=== PATIENT | female | born 1960 | race Caucasian/White ===

== ENCOUNTER → 2017-11-18 | Outpatient (CLI) | payer OTHER ==
[~2017-11-18] MED LIST: ALBU90OI61 INH; ALEN70 PO; ATOR20 PO; CIPRO500 MG PO; CLOB.05TC TOP; Citalopram HBr10 MG PO; Culturelle1 CAP PO; ESCI20 PO; FEXO180; Glimepiride1 MG PO; INSLI100I; INSULANI; INSULANPEN SC; LOSA25 PO; LOSA50 PO; METF500; METO10 PO; METO50 PO; Novolog Fl100 UNIT/1 SC; OMEP20ER; OMEP20ER PO; OMEP40CA12 PO; OXYACE5T PO; PARO12.5; PIOG15; PRAMIPEXOLE DIHY1 MG PO; PROM25 PO; PROM25S PR; Prilosec Otc20 MG PO; SACC250C PO; TOUJEO SOL300 UNIT/1 SC; TRAN2; VENL37.5ER PO
== END | disposition home or self-care (01) ==
LOC: LAB EV 15:45 → LAB SHORT 15:45
DX: J02.9 Acute pharyngitis, unspecified (principal)
CPT/HCPCS: 87070; 87147

== ENCOUNTER → 2018-02-26 | Outpatient (CLI) | payer OTHER ==
[2018-02-27 11:37] LABS: Adenovirus F 40/41 Not Detected (NOT DETECT); Astrovirus Not Detected (NOT DETECT); Campylobacter Sp Not Detected (NOT DETECT); Cryptosporidium Not Detected (NOT DETECT); Cyclospora Cayetanensis Not Detected (NOT DETECT); E. Coli O157 Not Detected (NOT DETECT); Entamoeba Histolytica Not Detected (NOT DETECT); Enteroaggregative E. coli-EAEC Not Detected (NOT DETECT); Enteropathogenic E. coli-EPEC Not Detected (NOT DETECT); Enterotoxigenic E. coli-ETEC Not Detected (NOT DETECT); Giardia Lamblia Not Detected (NOT DETECT); Norovirus GI/GII Not Detected (NOT DETECT); Plesiomonas Shigelloides Not Detected (NOT DETECT); Rotavirus A Not Detected (NOT DETECT); Salmonella Sp Not Detected (NOT DETECT); Sapovirus Not Detected (NOT DETECT); Shiga Toxin-prod E. coli-STEC Not Detected (NOT DETECT); Shigella/Enteroin E. coli-EIEC Not Detected (NOT DETECT); Vibrio Cholerae Not Detected (NOT DETECT); Vibrio Sp Not Detected (NOT DETECT); Yersinia Enterocolitica Not Detected (NOT DETECT)
== END | disposition home or self-care (01) ==
LOC: LAB EV 09:50
PROVIDERS: Nurse Practitioner Family
DX: E11.43 Type 2 diabetes mellitus with diabetic autonomic (poly)neuropathy (principal); R19.7 Diarrhea, unspecified
CPT/HCPCS: 87507

== ENCOUNTER → 2018-03-06 | Outpatient (CLI) | payer OTHER ==
[2018-03-06 11:08] LABS: BASOPHILS ABSOLUTE AUTO 0.06 K/mm3 (0.00-0.23); BASOPHILS PERCENT AUTO 0 % (0-2); EOSINOPHILS ABSOLUTE AUTO 0.45 K/mm3 (0.00-0.68); EOSINOPHILS PERCENT AUTO 3 % (0-6); Hematocrit 36.5 % (33.0-51.0); Hemoglobin 11.8 g/dL (11.5-16.0); IMMATURE GRAN ABSOLUTE AUTO 0.09 K/mm3 (0.00-0.10); IMMATURE GRAN PERCENT AUTO 1 % (0-1); LYMPHOCYTES ABSOLUTE AUTO 2.72 K/mm3 (0.84-5.20); LYMPHOCYTES PERCENT AUTO 18 % (21-46); MONOCYTES ABSOLUTE AUTO 0.95 K/mm3 (0.16-1.47); MONOCYTES PERCENT AUTO 6 % (4-13); Mean Corpuscular HGB 26.9 pg (26.0-34.0); Mean Corpuscular HGB Conc 32.3 g/dL (31.5-36.5); Mean Corpuscular Volume 83 fL (80-100); NEUTROPHILS ABSOLUTE AUTO 10.69 K/mm3 (1.96-9.15); NEUTROPHILS PERCENT AUTO 71 % (41-73); Platelet Count 441 K/mm3 (150-400); RDW Coefficient Variation 14.7 % (11.7-14.2); RDW Standard Deviation 44.5 fL (35.1-46.3); Red Blood Cell Count 4.38 M/mm3 (3.80-5.20); White Blood Cell Count 14.96 K/mm3 (4.00-11.30)
[2018-03-06 11:35] LABS: Albumin, Blood 3.9 g/dL (3.4-5.0); Albumin/Globulin Ratio 0.9 (0.8-1.8); Bilirubin, Total 0.4 mg/dL (0.1-1.0); Bun/Creatinine Ratio 24.3 (12.0-20.0); Calcium, Blood 9.6 mg/dL (8.5-10.1); Creatinine, Blood 1.36 mg/dL (0.40-1.00); Globulin, Blood 4.4 g/dL (2.2-4.0); Potassium, Blood 4.4 mmol/L (3.5-5.5); Total Protein, Blood 8.3 g/dL (6.4-8.2)
== END | disposition home or self-care (01) ==
LOC: LAB SHORT 11:04 → LAB EV 11:04
PROVIDERS: Physician Assistant
DX: R10.11 Right upper quadrant pain (principal)
CPT/HCPCS: 80053; 83690; 85025

== ENCOUNTER → 2018-06-21 | Outpatient (CLI) | payer OTHER ==
[2018-06-21 14:20] LABS: BASOPHILS ABSOLUTE AUTO 0.06 K/mm3 (0.00-0.23); BASOPHILS PERCENT AUTO 1 % (0-2); EOSINOPHILS ABSOLUTE AUTO 0.49 K/mm3 (0.00-0.68); EOSINOPHILS PERCENT AUTO 4 % (0-6); Hematocrit 34.2 % (33.0-51.0); Hemoglobin 11.1 g/dL (11.5-16.0); IMMATURE GRAN ABSOLUTE AUTO 0.04 K/mm3 (0.00-0.10); IMMATURE GRAN PERCENT AUTO 0 % (0-1); LYMPHOCYTES ABSOLUTE AUTO 3.48 K/mm3 (0.84-5.20); LYMPHOCYTES PERCENT AUTO 30 % (21-46); MONOCYTES ABSOLUTE AUTO 0.75 K/mm3 (0.16-1.47); MONOCYTES PERCENT AUTO 6 % (4-13); Mean Corpuscular HGB 27.4 pg (26.0-34.0); Mean Corpuscular HGB Conc 32.5 g/dL (31.5-36.5); Mean Corpuscular Volume 84 fL (80-100); Mean Platelet Volume 9.3 fL (9.1-12.4); NEUTROPHILS ABSOLUTE AUTO 6.81 K/mm3 (1.96-9.15); NEUTROPHILS PERCENT AUTO 59 % (41-73); Platelet Count 353 K/mm3 (150-400); RDW Coefficient Variation 15.1 % (11.7-14.2); RDW Standard Deviation 46.2 fL (35.1-46.3); Red Blood Cell Count 4.05 M/mm3 (3.80-5.20); White Blood Cell Count 11.63 K/mm3 (4.00-11.30)
[2018-06-21 14:42] LABS: Anion Gap 9 mmol/L (6-16); Blood Urea Nitrogen 30 mg/dL (8-24); Bun/Creatinine Ratio 23.6 (12.0-20.0); CO2, Blood 29 mmol/L (21-32); Calcium, Blood 9.4 mg/dL (8.5-10.1); Chloride, Blood 98 mmol/L (98-108); Creatinine, Blood 1.27 mg/dL (0.40-1.00); Glomerular Filtration Rate 43 (60-); Glucose, Blood 120 mg/dL (70-99); Potassium, Blood 4.4 mmol/L (3.5-5.5); Sodium, Blood 136 mmol/L (136-145)
[2018-06-21 14:44] LABS: Troponin I <0.015 ng/mL (0.000-0.040)
== END | disposition home or self-care (01) ==
LOC: LAB SHORT 14:14 → LAB EV 14:14
PROVIDERS: Family Medicine
DX: R07.81 Pleurodynia (principal)
CPT/HCPCS: 80048; 83880; 84484; 85025

== ENCOUNTER → 2018-08-06 | Outpatient (CLI) | payer OTHER | END | disposition home or self-care (01) | LOC: LAB 18:51 → LAB SHORT 18:51 | DX: R31.9 Hematuria, unspecified (principal) | CPT/HCPCS: 87077; 87086; 87147; 87186 ==

== ENCOUNTER → 2018-10-16 | Outpatient (CLI) | payer OTHER ==
[2018-10-16 17:55] LABS: BASOPHILS ABSOLUTE AUTO 0.07 K/mm3 (0.00-0.23); BASOPHILS PERCENT AUTO 1 % (0-2); EOSINOPHILS ABSOLUTE AUTO 0.57 K/mm3 (0.00-0.68); EOSINOPHILS PERCENT AUTO 5 % (0-6); Hematocrit 36.4 % (33.0-51.0); Hemoglobin 11.8 g/dL (11.5-16.0); IMMATURE GRAN ABSOLUTE AUTO 0.05 K/mm3 (0.00-0.10); IMMATURE GRAN PERCENT AUTO 0 % (0-1); LYMPHOCYTES PERCENT AUTO 26 % (21-46); MONOCYTES ABSOLUTE AUTO 1.32 K/mm3 (0.16-1.47); MONOCYTES PERCENT AUTO 11 % (4-13); Mean Corpuscular HGB 26.8 pg (26.0-34.0); Mean Corpuscular HGB Conc 32.4 g/dL (31.5-36.5); Mean Corpuscular Volume 83 fL (80-100); Mean Platelet Volume 10.1 fL (9.1-12.4); NEUTROPHILS ABSOLUTE AUTO 6.91 K/mm3 (1.96-9.15); NEUTROPHILS PERCENT AUTO 58 % (41-73); Platelet Count 341 K/mm3 (150-400); RDW Coefficient Variation 15.6 % (11.7-14.2); Red Blood Cell Count 4.41 M/mm3 (3.80-5.20); White Blood Cell Count 12.02 K/mm3 (4.00-11.30)
[2018-10-16 18:14] LABS: Alanine Aminotransfer (ALT/SGP 17 U/L (12-78); Albumin, Blood 3.5 g/dL (3.4-5.0); Albumin/Globulin Ratio 0.9 (0.8-1.8); Alk Phos 123 U/L (40-126); Anion Gap 6 mmol/L (6-16); Aspartate Aminotrans (AST/SGOT 11 U/L (12-37); Bilirubin, Total 0.5 mg/dL (0.1-1.0); Blood Urea Nitrogen 27 mg/dL (8-24); Bun/Creatinine Ratio 21.6 (12.0-20.0); CO2, Blood 30 mmol/L (21-32); Chloride, Blood 100 mmol/L (98-108); Creatinine, Blood 1.25 mg/dL (0.40-1.00); Glomerular Filtration Rate 44 (60-); Glucose, Blood 132 mg/dL (70-99); Potassium, Blood 3.8 mmol/L (3.5-5.5); Sodium, Blood 136 mmol/L (136-145); Total Protein, Blood 7.5 g/dL (6.4-8.2)
[2018-10-16 18:23] LABS: Troponin I <0.017 ng/mL (0.000-0.040)
== END | disposition home or self-care (01) ==
LOC: LAB SHORT 17:49 → LAB EV 17:49
PROVIDERS: Physician Assistant Medical
DX: R07.9 Chest pain, unspecified (principal)
CPT/HCPCS: 80053; 84484; 85025; 85379

== ENCOUNTER → 2018-11-30 | Outpatient (CLI) | payer OTHER ==
[~2018-11-30] MED LIST changes: +ASPI81CH PO; +Coreg25 MG; +HYDCHL50 PO; +METF500 PO; +NOVOLOG FL100 UNIT/1; -Novolog Fl100 UNIT/1 SC; +OXYC5
[2018-11-30 15:56] LABS: BASOPHILS ABSOLUTE AUTO 0.07 K/mm3 (0.00-0.23); BASOPHILS PERCENT AUTO 1 % (0-2); EOSINOPHILS ABSOLUTE AUTO 0.52 K/mm3 (0.00-0.68); EOSINOPHILS PERCENT AUTO 6 % (0-6); Hematocrit 36.2 % (33.0-51.0); Hemoglobin 11.8 g/dL (11.5-16.0); IMMATURE GRAN ABSOLUTE AUTO 0.04 K/mm3 (0.00-0.10); IMMATURE GRAN PERCENT AUTO 0 % (0-1); LYMPHOCYTES ABSOLUTE AUTO 1.98 K/mm3 (0.84-5.20); LYMPHOCYTES PERCENT AUTO 22 % (21-46); MONOCYTES ABSOLUTE AUTO 0.77 K/mm3 (0.16-1.47); MONOCYTES PERCENT AUTO 9 % (4-13); Mean Corpuscular HGB Conc 32.6 g/dL (31.5-36.5); Mean Corpuscular Volume 83 fL (80-100); Mean Platelet Volume 9.9 fL (9.1-12.4); NEUTROPHILS PERCENT AUTO 63 % (41-73); Platelet Count 311 K/mm3 (150-400); RDW Coefficient Variation 16.7 % (11.7-14.2); RDW Standard Deviation 50.1 fL (35.1-46.3); Red Blood Cell Count 4.37 M/mm3 (3.80-5.20); White Blood Cell Count 9.08 K/mm3 (4.00-11.30)
== END | disposition home or self-care (01) ==
LOC: LAB SHORT 15:51 → LAB EV 15:51
PROVIDERS: Physician Assistant Surgical
DX: M25.571 Pain in right ankle and joints of right foot (principal)
CPT/HCPCS: 84550; 85025

== ENCOUNTER 2019-01-06 17:56 | Inpatient (IN) | payer OTHER ==
[~2019-01-06] VITALS: Ht 157.5 cm; Wt 74.4 kg
[~2019-01-06 17:56] MED LIST changes: -ASPI81CH PO; -ATOR20 PO; +ATOR40TA PO; +Aspirin EC81 MG PO; -Coreg25 MG; +Coreg25 MG PO; +HYDCHL25 PO; -HYDCHL50 PO
[2019-01-06 18:44] LABS: BASOPHILS ABSOLUTE AUTO 0.03 K/mm3 (0.00-0.23); BASOPHILS PERCENT AUTO 0 % (0-2); EOSINOPHILS ABSOLUTE AUTO 0.63 K/mm3 (0.00-0.68); EOSINOPHILS PERCENT AUTO 7 % (0-6); Hematocrit 27.5 % (33.0-51.0); Hemoglobin 8.8 g/dL (11.5-16.0); IMMATURE GRAN ABSOLUTE AUTO 0.03 K/mm3 (0.00-0.10); IMMATURE GRAN PERCENT AUTO 0 % (0-1); LYMPHOCYTES ABSOLUTE AUTO 2.12 K/mm3 (0.84-5.20); LYMPHOCYTES PERCENT AUTO 23 % (21-46); MONOCYTES ABSOLUTE AUTO 0.87 K/mm3 (0.16-1.47); MONOCYTES PERCENT AUTO 10 % (4-13); Mean Corpuscular HGB 26.9 pg (26.0-34.0); Mean Corpuscular Volume 84 fL (80-100); Mean Platelet Volume 9.6 fL (9.1-12.4); NEUTROPHILS ABSOLUTE AUTO 5.44 K/mm3 (1.96-9.15); NEUTROPHILS PERCENT AUTO 60 % (41-73); Platelet Count 333 K/mm3 (150-400); RDW Coefficient Variation 15.4 % (11.7-14.2); RDW Standard Deviation 47.1 fL (35.1-46.3); Red Blood Cell Count 3.27 M/mm3 (3.80-5.20); White Blood Cell Count 9.12 K/mm3 (4.00-11.30)
[2019-01-06 19:02] LABS: Albumin, Blood 3.3 g/dL (3.4-5.0); Albumin/Globulin Ratio 0.8 (0.8-1.8); Bilirubin, Total 0.3 mg/dL (0.1-1.0); Bun/Creatinine Ratio 20.6 (12.0-20.0); Calcium, Blood 8.6 mg/dL (8.5-10.1); Creatinine, Blood 2.62 mg/dL (0.40-1.00); Globulin, Blood 3.9 g/dL (2.2-4.0); Potassium, Blood 3.7 mmol/L (3.5-5.5); Total Protein, Blood 7.2 g/dL (6.4-8.2); Uric Acid, Blood 8.1 mg/dL (2.6-6.0)
[2019-01-06] MEDS ORDERED: Cyclobenzaprine5 MG PO (21:20)
[2019-01-06] MEDS ORDERED: JARDIANCE10 MG PO (21:21)
[2019-01-06] MEDS ORDERED: TRULICITY1.5 MG/0.5 SC (21:22)
[2019-01-06] MEDS ORDERED: PRAMIPEXOLE DIHY1 MG PO (21:25)
[2019-01-06] MEDS ORDERED: PANTOPRAZOLE SO40 M1 PO (21:26)
[2019-01-06] MEDS ORDERED: Plavix75 MG PO (21:28)
[2019-01-06] MEDS ORDERED: METO10 PO (22:31)
[2019-01-06] MEDS ORDERED: ONDA8 PO (22:32)
--- NOTE | 2019-01-06 23:00 | NUR ---
RECEIVED HAND OFF FROM ER NURSE USING SBAR. TRANSPORTED TO ROOM 209 VIA STRETCHER. TRANSFERED TO BED WITH FULL STAFF ASSISTANCE, TOLERATED WELL. AAO X3, RENDON, FOLLOWS ALL COMMANDS. ORIENTED TO ROOM, CALL SYSTEM, AND POC, VOICES UNDERSTANDING. RESPIRATIONS EVEN AND UNLABORED ON ROOM AIR. LUNG SOUNDS CLEAR BILATERALLY. ABDOMEN MILDLY DISTENDED. BOWEL SOUNDS HYPOACTIVE IN ALL QUADS. STATES LAST BM WAS YESTERDAY. LEFT AC 20G PIV IS PATENT, FLUSING WITH EASE. SCD PLACED TO LLE, TOELRATED WELL. GOOD PEDAL PULSES NOTED TO BLE. EDEMA, REDNESS, AND HEAT NOTED TO LEFT FOOT. SEVERAL SMALL ANRASIONS NOTED TO LEFT FOOT, PT STATES THAT SHE SCRATCHES HER FEET SOMETIMES. DENIES FURTHER NEED OR WANTS AT THIS TIME. ADMISSION ASSESSMENT IN PROGRESS. SAFETY MEASURES IN PLACE. WILL CONTINUE TO MONITOR.
[2019-01-07 04:54] LABS: BASOPHILS ABSOLUTE AUTO 0.03 K/mm3 (0.00-0.23); BASOPHILS PERCENT AUTO 0 % (0-2); EOSINOPHILS ABSOLUTE AUTO 0.57 K/mm3 (0.00-0.68); EOSINOPHILS PERCENT AUTO 8 % (0-6); Hematocrit 27.1 % (33.0-51.0); Hemoglobin 8.5 g/dL (11.5-16.0); IMMATURE GRAN ABSOLUTE AUTO 0.03 K/mm3 (0.00-0.10); IMMATURE GRAN PERCENT AUTO 0 % (0-1); LYMPHOCYTES ABSOLUTE AUTO 1.98 K/mm3 (0.84-5.20); LYMPHOCYTES PERCENT AUTO 27 % (21-46); MONOCYTES ABSOLUTE AUTO 0.83 K/mm3 (0.16-1.47); MONOCYTES PERCENT AUTO 11 % (4-13); Mean Corpuscular HGB 27.2 pg (26.0-34.0); Mean Corpuscular HGB Conc 31.4 g/dL (31.5-36.5); Mean Platelet Volume 9.7 fL (9.1-12.4); NEUTROPHILS ABSOLUTE AUTO 4.02 K/mm3 (1.96-9.15); NEUTROPHILS PERCENT AUTO 54 % (41-73); Platelet Count 315 K/mm3 (150-400); RDW Coefficient Variation 15.5 % (11.7-14.2); RDW Standard Deviation 49.4 fL (35.1-46.3); Red Blood Cell Count 3.12 M/mm3 (3.80-5.20); White Blood Cell Count 7.46 K/mm3 (4.00-11.30)
[2019-01-07 04:55] LABS: Mean Corpuscular Volume 87 fL (80-100)
[2019-01-07 05:10] LABS: Bun/Creatinine Ratio 22.2 (12.0-20.0); Calcium, Blood 7.7 mg/dL (8.5-10.1); Creatinine, Blood 2.21 mg/dL (0.40-1.00); Potassium, Blood 3.4 mmol/L (3.5-5.5)
--- NOTE | 2019-01-07 06:03 | NUR ---
SHIFT SUMMARY LYING IN SEMI FOWLERS WITH EYES OPEN. HAS RESTED WELL SINCE ADMISSION. RESPIRATIONS EVEN AND UNLABORED AT THIS TIME. DENIES PAIN, DISCOMFORT, OR FURTHER NEEDS AT THIS TIME. SAFETY MEASURES IN PLACE. WILL GIVE HAND OFF TO ONCOMING SHIFT USING SBAR.
[2019-01-07 15:10] LABS: IMMATURE RETIC FRACTION 6.2 % (2.3-16.0); RETIC HGB EQUIVALENT 28.2 pg (28.20-36.60); RETICULOCYTE ABSOLUTE 0.025 M/mm3 (0.0200-0.1100); RETICULOCYTE COUNT PERCENT 0.82 % (0.50-2.50)
[2019-01-07 15:31] LABS: Percent Saturation 13.5 % (15.0-50.0)
--- NOTE | 2019-01-07 16:58 | NUR ---
SHIFT SUMMARY PT A&OX4, VSS. RLE CAST NWB AND LLE FOOT FX'S NWB, CT TO BE ORDERED BY PODIATRY. PAIN MANAGED WITH 10 MG OXY Q6. BHARTI PO, DENIES N&V. BEDPAN FOR VOIDING. CBGS AC/HS. IVF NS KCL @ 75 MLS/HR INFUSING. WCTM & TX PER EMAR UNTIL REPORT GIVEN TO ONCOMING TAI PHAN.
--- NOTE | 2019-01-07 19:47 | NUR ---
pt to CT at this time.
--- NOTE | 2019-01-08 05:18 | NUR ---
SHIFT SUMMARY PT A&O X4 T/O SHIFT. NO ACUTE CHANGES. NWB BLE; BRISK CAP REFILL ALL EXT; PAIN MANAGED PER EMAR. CAST TO RLE. PT ASSISTED WITH BEDPAN AND BOOSTED IN BED PRN. PT REPOSITIONS INDEPENDENTLY. IV GTT PER EMAR. BLOOD SUGAR MANAGED PER EMAR. CALL LIGHT IN REACH; PT DEMONSTRATES USE. WCTM UNTIL REPORT TO DAY SHIFT RN.
[2019-01-08 05:31] LABS: Albumin, Blood 2.8 g/dL (3.4-5.0); Anion Gap 7 mmol/L (6-16); Blood Urea Nitrogen 32 mg/dL (8-24); Bun/Creatinine Ratio 21.9 (12.0-20.0); CO2, Blood 25 mmol/L (21-32); Calcium, Blood 8.2 mg/dL (8.5-10.1); Chloride, Blood 109 mmol/L (98-108); Creatinine, Blood 1.46 mg/dL (0.40-1.00); Glomerular Filtration Rate 39 (60-); Glucose, Blood 104 mg/dL (70-99); Phosphorus, Blood 2.6 mg/dL (2.5-4.9); Potassium, Blood 4.1 mmol/L (3.5-5.5); Sodium, Blood 141 mmol/L (136-145)
--- NOTE | 2019-01-08 16:42 | NUR ---
SHIFT SUMMARY PT A&OX4, VSS, RLE CAST, LLE SPLINTED, BOTH NWB, PT USES BOARD TRANSFER TO CHAIR/BED/WC; WC IN ROOM IS PT'S RENTAL; TRAPEZE ON BED TO ASSIST PT TO REPOSITION SELF. NO IV ACCESS NEEDED. PLAN IS DC TOMORROW, PT WORKING ON GETTING RAMP INTO HOME, TO SEE DR MEYER NEXT WEEK TO PLAN SURGERY ON LLE FOOT, PT/OT RECOMMENDS HOME WITH HH; DC PLANNING HAS MET WITH PT W/RESOURCES AND TO BEGIN DC. PAIN MANAGED WITH 10 MG PRN. BHARTI PO, DENIES N&V. WCTM & TX PER EMAR UNTIL REPORT GIVEN TO ONCCOURT LUJAN RN.
--- NOTE | 2019-01-08 22:55 | NUR ---
2039 PT LYING IN BED, REPORTS PAIN OF 2/10 IN L FOOT. WILL GIVE PAIN MEDICATION AND EVAL FOR EFFECT. REPORTS A LITTLE SOB, ON RA AT 93%. CAST ON R FOOT, SPLINT/WRAP ON L FOOT. CIRCULATION IN TOES IN BOTH FEET IS WNL. NO OTHER APPARENT SIGNS OF DISTRESS. CALL LIGHT IS IN REACH.
--- NOTE | 2019-01-08 23:17 | NUR ---
PT LYING IN BED, EYES CLOSED, APPEARS TO BE RESTING. BREATHING IS EVEN, UNLABORED. NO APPARENT SIGNS OF DISTRESS. CALL LIGHT IS IN REACH.
--- NOTE | 2019-01-09 01:30 | NUR ---
PT LYING IN BED, EYES CLOSED, APPEARS TO BE RESTING. BREATHING IS EVEN, UNLABORED. NO APPARENT SIGNS OF DISTRESS. CALL LIGHT IS IN REACH. BED ALARM IS ON.
--- NOTE | 2019-01-09 03:36 | NUR ---
PT REQUESTED AND RECIEVED PAIN MEDICATION, WILL EVAL FOR EFFECT. NO OTHER APPARENT SIGNS OF DISTRESS. CALL LIGHT IS IN REACH. BED ALARM IS ON.
--- NOTE | 2019-01-09 03:37 | NUR ---
PT IS AAO X 4, HOWEVER, AT TIMES SHE DOES NOT CALL FOR HELP AND ATTEMPTS TO TRANSFER HERSELF VIA SLIDER BOARD WITHOUT HELP AND IS NOT QUITE STEADY ENOUGH FOR THAT. WE PLACED THE BED ALARM ON AND A TAB ALARM WHEN SHE IS IN HER CHAIR OR WHEELCHAIR. BS AT WAS 105. PT GOT OXYCODONE FOR L FOOT PAIN X 2. THERE IS A SPLINT ON HER L FOOT AND A CAST ON HER R FOOT. CIRCULATION IN TOES IS WNL. SHE IN NWB BILAT. NEED SPECIMEN FOR OCCULT BLOOD STOOL.
[2019-01-09 04:14] LABS: BASOPHILS ABSOLUTE AUTO 0.04 K/mm3 (0.00-0.23); BASOPHILS PERCENT AUTO 1 % (0-2); EOSINOPHILS ABSOLUTE AUTO 0.54 K/mm3 (0.00-0.68); EOSINOPHILS PERCENT AUTO 6 % (0-6); Hematocrit 26.3 % (33.0-51.0); Hemoglobin 8.3 g/dL (11.5-16.0); IMMATURE GRAN ABSOLUTE AUTO 0.03 K/mm3 (0.00-0.10); IMMATURE GRAN PERCENT AUTO 0 % (0-1); LYMPHOCYTES ABSOLUTE AUTO 1.94 K/mm3 (0.84-5.20); LYMPHOCYTES PERCENT AUTO 22 % (21-46); MONOCYTES PERCENT AUTO 9 % (4-13); Mean Corpuscular HGB 26.3 pg (26.0-34.0); Mean Corpuscular HGB Conc 31.6 g/dL (31.5-36.5); Mean Platelet Volume 9.7 fL (9.1-12.4); NEUTROPHILS ABSOLUTE AUTO 5.41 K/mm3 (1.96-9.15); NEUTROPHILS PERCENT AUTO 62 % (41-73); Platelet Count 307 K/mm3 (150-400); RDW Coefficient Variation 15.5 % (11.7-14.2); RDW Standard Deviation 47.6 fL (35.1-46.3); Red Blood Cell Count 3.15 M/mm3 (3.80-5.20); White Blood Cell Count 8.76 K/mm3 (4.00-11.30)
[2019-01-09 04:15] LABS: Mean Corpuscular Volume 84 fL (80-100)
[2019-01-09 04:30] LABS: Albumin, Blood 2.8 g/dL (3.4-5.0); Anion Gap 6 mmol/L (6-16); Blood Urea Nitrogen 22 mg/dL (8-24); Bun/Creatinine Ratio 21.6 (12.0-20.0); CO2, Blood 26 mmol/L (21-32); Calcium, Blood 8.4 mg/dL (8.5-10.1); Chloride, Blood 106 mmol/L (98-108); Creatinine, Blood 1.02 mg/dL (0.40-1.00); Glomerular Filtration Rate 59 (60-); Glucose, Blood 80 mg/dL (70-99); Phosphorus, Blood 2.4 mg/dL (2.5-4.9); Potassium, Blood 4.3 mmol/L (3.5-5.5); Sodium, Blood 138 mmol/L (136-145)
--- NOTE | 2019-01-09 05:52 | NUR ---
ASSISTED ABATEMENT WORKER IN TRANSFERRING PT TO BSC VIA SLIDER BOARD FROM WHEELCHAIR AND BACK AGAIN. PT TOLERATED PROCEDURE WELL. NO APPARENT SIGNS OF DISTRESS. DECLINES NEED FOR ANYTHING ELSE AT THIS TIME. CALL LIGHT IS IN REACH. NO OTHER CHANGES THIS SHIFT.
[2019-01-09] MEDS ORDERED: ALLO100 PO (13:19)
[2019-01-09] MEDS ORDERED: B Complex #11 EACH PO (13:20)
[2019-01-09] MEDS ORDERED: ASCO500 PO (13:20)
[2019-01-09] MEDS ORDERED: Colace100 MG (13:21)
[2019-01-09] MEDS ORDERED: FERSU300 PO (13:21)
[2019-01-09] MEDS ORDERED: MIRALAX17 GM PO (13:22)
[2019-01-09] MEDS ORDERED: OXYC5 PO (13:22)
--- NOTE | 2019-01-09 13:28 | NUR ---
DISCHARGE DISCHARGE EQUIPMENT ARRANGED BY ROGER STARK. 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 PATIENT DISCHARGED TO HOME WITH FAMILY
== END 2019-01-09 13:40 | disposition home or self-care (01) | DRG 683 ==
LOC: ER 17:56 → SURS 21:20
PROVIDERS: Internal Medicine; Physician Assistant; ADMIT Hospitalist
DX: N17.9 Acute kidney failure, unspecified (principal); I50.22 Chronic systolic (congestive) heart failure; I13.0 Hypertensive heart and chronic kidney disease with heart failure and stage 1 through stage 4 chronic kidney disease, or unspecified chronic kidney disease; I25.10 Atherosclerotic heart disease of native coronary artery without angina pectoris; E11.43 Type 2 diabetes mellitus with diabetic autonomic (poly)neuropathy; E11.42 Type 2 diabetes mellitus with diabetic polyneuropathy; K31.84 Gastroparesis; Z79.4 Long term (current) use of insulin; F32.9 Major depressive disorder, single episode, unspecified; G25.81 Restless legs syndrome; D63.1 Anemia in chronic kidney disease; S92.812A Other fracture of left foot, initial encounter for closed fracture; F17.210 Nicotine dependence, cigarettes, uncomplicated; M81.0 Age-related osteoporosis without current pathological fracture; I25.5 Ischemic cardiomyopathy; Z95.1 Presence of aortocoronary bypass graft; E11.22 Type 2 diabetes mellitus with diabetic chronic kidney disease; N18.3 Chronic kidney disease, stage 3 (moderate); E79.0 Hyperuricemia without signs of inflammatory arthritis and tophaceous disease; S82.892D Other fracture of left lower leg, subsequent encounter for closed fracture with routine healing
CPT/HCPCS: 36415; 73610; 73630; 73700; 76770; 80048; 80053; 80069; 82607; 82728; 82746; 82947; 83540; 83550; 83880; 84550; 85025; 85045; 96374; 96375; 97110; 97162; 97166; 97530; 97535; 99285-25; J0881; J1644; J1650; J2405; J3010; J3480; J7030

== ENCOUNTER 2019-08-01 20:11 | Inpatient (IN) | payer OTHER ==
[~2019-08-01] VITALS: Ht 162.6 cm; Wt 79.7 kg
[~2019-08-01 20:11] MED LIST changes: +ASCO500 PO; -ATOR40TA PO; +B Complex #11 EACH PO; +Colace100 MG; -Coreg25 MG PO; +Cyclobenzaprine5 MG PO; -ESCI20 PO; +FERSU300 PO; -INSULANPEN SC; +MIRALAX17 GM PO; +OXYC5 PO
[2019-08-01 20:38] LABS: BASOPHILS ABSOLUTE AUTO 0.05 K/mm3 (0.00-0.23); BASOPHILS PERCENT AUTO 0 % (0-2); EOSINOPHILS ABSOLUTE AUTO 0.67 K/mm3 (0.00-0.68); EOSINOPHILS PERCENT AUTO 5 % (0-6); Hematocrit 29.4 % (33.0-51.0); Hemoglobin 9.3 g/dL (11.5-16.0); IMMATURE GRAN ABSOLUTE AUTO 0.11 K/mm3 (0.00-0.10); IMMATURE GRAN PERCENT AUTO 1 % (0-1); LYMPHOCYTES ABSOLUTE AUTO 2.44 K/mm3 (0.84-5.20); LYMPHOCYTES PERCENT AUTO 19 % (21-46); MONOCYTES PERCENT AUTO 8 % (4-13); Mean Corpuscular HGB Conc 31.6 g/dL (31.5-36.5); Mean Corpuscular Volume 76 fL (80-100); Mean Platelet Volume 9.3 fL (9.1-12.4); NEUTROPHILS ABSOLUTE AUTO 8.81 K/mm3 (1.96-9.15); NEUTROPHILS PERCENT AUTO 67 % (41-73); Platelet Count 450 K/mm3 (150-400); RDW Coefficient Variation 17.8 % (11.7-14.2); Red Blood Cell Count 3.88 M/mm3 (3.80-5.20); White Blood Cell Count 13.18 K/mm3 (4.00-11.30)
[2019-08-01 20:46] LABS: Bun/Creatinine Ratio 21.3 (12.0-20.0); Calcium, Blood 8.9 mg/dL (8.5-10.1); Creatinine, Blood 1.27 mg/dL (0.40-1.00); Potassium, Blood 4.2 mmol/L (3.5-5.5)
[2019-08-01] MEDS ORDERED: INSULANPEN SC (21:43)
[2019-08-01] MEDS ORDERED: METO10 PO (21:44)
[2019-08-01] MEDS ORDERED: ESCI20 PO (21:44)
[2019-08-01] MEDS ORDERED: ATOR40TA PO (21:45)
[2019-08-01] MEDS ORDERED: Coreg25 MG PO (21:46)
[2019-08-01] MEDS ORDERED: JARDIANCE10 MG PO (21:47)
[2019-08-01] MEDS ORDERED: TRULICITY1.5 MG/0.5 SC (21:47)
[2019-08-01] MEDS ORDERED: PANTOPRAZOLE SO40 M1 PO (21:48)
[2019-08-01] MEDS ORDERED: PRAMIPEXOLE DIHY1 MG PO (21:48)
[2019-08-01] MEDS ORDERED: Plavix75 MG PO (21:49)
[2019-08-01] MEDS ORDERED: ONDA4ODT SL (21:50)
[2019-08-01] MEDS ORDERED: ALLO100 PO (21:51)
[2019-08-01] MEDS ORDERED: BACL10 PO (21:52)
[2019-08-01] MEDS ORDERED: CLOB.05TO TOP (21:54)
[2019-08-01] MEDS ORDERED: Clobetasol Prop50 ML TOP (21:55)
[2019-08-01] MEDS ORDERED: METFORMIN HCL500 M3 PO (21:56)
[2019-08-01] MEDS ORDERED: DIPH50 PO (21:57)
[2019-08-01] MEDS ORDERED: VITAMIN D3125 MCG PO (21:58)
[2019-08-01] MEDS ORDERED: Aspir 8181 MG PO (21:59)
[2019-08-01] MEDS ORDERED: ALBU90OI INH (21:59)
[2019-08-01] MEDS ORDERED: CALCIUM CITRATE PO (22:01)
[2019-08-01] MEDS ORDERED: ACET325 PO (22:01)
[2019-08-02 04:49] LABS: BASOPHILS ABSOLUTE AUTO 0.05 K/mm3 (0.00-0.23); BASOPHILS PERCENT AUTO 0 % (0-2); EOSINOPHILS ABSOLUTE AUTO 0.46 K/mm3 (0.00-0.68); EOSINOPHILS PERCENT AUTO 4 % (0-6); Hematocrit 29.3 % (33.0-51.0); IMMATURE GRAN ABSOLUTE AUTO 0.08 K/mm3 (0.00-0.10); IMMATURE GRAN PERCENT AUTO 1 % (0-1); LYMPHOCYTES ABSOLUTE AUTO 2.26 K/mm3 (0.84-5.20); LYMPHOCYTES PERCENT AUTO 18 % (21-46); MONOCYTES PERCENT AUTO 9 % (4-13); Mean Corpuscular HGB 23.6 pg (26.0-34.0); Mean Corpuscular HGB Conc 30.7 g/dL (31.5-36.5); Mean Corpuscular Volume 77 fL (80-100); Mean Platelet Volume 9.5 fL (9.1-12.4); NEUTROPHILS ABSOLUTE AUTO 8.67 K/mm3 (1.96-9.15); NEUTROPHILS PERCENT AUTO 68 % (41-73); Platelet Count 465 K/mm3 (150-400); RDW Coefficient Variation 17.8 % (11.7-14.2); RDW Standard Deviation 49.4 fL (35.1-46.3); Red Blood Cell Count 3.81 M/mm3 (3.80-5.20); White Blood Cell Count 12.72 K/mm3 (4.00-11.30)
[2019-08-02 05:18] LABS: Bun/Creatinine Ratio 23.9 (12.0-20.0); Creatinine, Blood 1.13 mg/dL (0.40-1.00); Potassium, Blood 4.2 mmol/L (3.5-5.5)
--- NOTE | 2019-08-02 06:12 | NUR ---
SHIFT SUMMARY PT ER ADMIT THIS SHIFT FOR RIGHT HIP FX AFTER SUSTAINING A GROUND LEVEL FALL AT HOME. PT SURGICAL FLOOR STATUS. DR. DAVIDSON CONSULTED. PT HAS BEEN VERY PAINFUL WITH ANY TYPE OF MOVEMENT. ROLLING FROM LEFT TO RIGHT CAUSES EXCRUTIATING PAIN FOR PT. PT MEDICATED WITH FENTANYL AND TORADOL WITH EFFECT. PT HAS NOT VOIDED SINCE ARRIVING TO THE HOSPITAL. PT BLADDER SCANNED AND SHOWED GREATER THAN 999. POLLOCK ORDER OBTAINED DUE TO RETENTION, AND FOR POSSIBLE PROCEDURE. VITALS ARE STABLE. ADMISSION COMPLETE ASIDE FROM MEDICATION REC. BED IN LOWEST POSITION, CALL LIGHT WITHIN REACH. WILL CONTINUE TO MONITOR AND REPORT TO ONCOMING RN.
--- NOTE | 2019-08-02 12:08 | NUR ---
BROUGHT TO [facility] IN BED AND ADMISSION TO UNIT STARTED. EKG DONE BY TECH AND CALL BEING MADE TO ANNESTHESIOLOGIST TO DETERMINE TO COVER LOW BLOOD SUGAR OR NOT
--- NOTE | 2019-08-02 12:36 | NUR ---
PT TRANSFERED TO OR FOR PROCEDURE. PT BLOOD SUGAR LEVELS AT 57, NOTIFIED OR NURSE WHO WAS TRANSFERING PT. WILL TREAT LOW BLOOD SUGAR IN OR. REPORT CALLED TO RECIEVING NURSE ON SURGICAL UNIT.
--- NOTE | 2019-08-02 17:10 | NUR ---
pt arrived to room 223 from pacu pt bs is 71 having pt eat asked pt if she is dizzy or lightheaded pt stated no dressing to r hip is c/d/i bulky dressing to r hip and lower dressing is covered by marifer wrap per req from dr gallo placed in pacu pt having low b/p lowered hob will cont with ivf and notify dr winn nausea
--- NOTE | 2019-08-02 17:25 | NUR ---
dr gallo by to see pt stat cbc also to notify [facility] re bolus to call him with results of lab
--- NOTE | 2019-08-02 17:40 | NUR ---
ns bolus infusing per dr guzman will notify him of lab results
[2019-08-02 18:23] LABS: BASOPHILS ABSOLUTE AUTO 0.06 K/mm3 (0.00-0.23); BASOPHILS PERCENT AUTO 0 % (0-2); EOSINOPHILS ABSOLUTE AUTO 0.63 K/mm3 (0.00-0.68); EOSINOPHILS PERCENT AUTO 4 % (0-6); Hematocrit 21.9 % (33.0-51.0); Hemoglobin 6.6 g/dL (11.5-16.0); IMMATURE GRAN ABSOLUTE AUTO 0.07 K/mm3 (0.00-0.10); IMMATURE GRAN PERCENT AUTO 1 % (0-1); LYMPHOCYTES ABSOLUTE AUTO 2.97 K/mm3 (0.84-5.20); LYMPHOCYTES PERCENT AUTO 20 % (21-46); MONOCYTES ABSOLUTE AUTO 1.33 K/mm3 (0.16-1.47); MONOCYTES PERCENT AUTO 9 % (4-13); Mean Corpuscular HGB 23.9 pg (26.0-34.0); Mean Corpuscular HGB Conc 30.1 g/dL (31.5-36.5); Mean Corpuscular Volume 79 fL (80-100); Mean Platelet Volume 9.8 fL (9.1-12.4); NEUTROPHILS PERCENT AUTO 67 % (41-73); Platelet Count 368 K/mm3 (150-400); RDW Standard Deviation 52.5 fL (35.1-46.3); Red Blood Cell Count 2.76 M/mm3 (3.80-5.20); White Blood Cell Count 15.26 K/mm3 (4.00-11.30)
--- NOTE | 2019-08-02 18:25 | NUR ---
pt req pain meds 1 tab po percocet given will monitor b/p if cont to improve will give another
--- NOTE | 2019-08-02 18:30 | NUR ---
dr gallo notified of cbc result to call dr guzman re results rec 1 unit prbc poss lasix
--- NOTE | 2019-08-02 18:50 | NUR ---
called jeremie salas re cbc to have 1 unit prbc will hold off on lasix night rn to call if pt has sob
--- NOTE | 2019-08-02 20:32 | NUR ---
BLOOD ADMINISTRATION. TRANSFUSION STARTED AT APPROX 2024. LUNG SOUNDS CLEAR IN ALL CAVAZOS. PT DENIES SOB. VITAL SIGNS STABLE. PT CURRENTLY SITTING UP IN BED. DENIES ITCHING. NO REDNESS NOTED.
[2019-08-03 04:15] LABS: BASOPHILS ABSOLUTE AUTO 0.05 K/mm3 (0.00-0.23); BASOPHILS PERCENT AUTO 1 % (0-2); EOSINOPHILS ABSOLUTE AUTO 0.61 K/mm3 (0.00-0.68); EOSINOPHILS PERCENT AUTO 6 % (0-6); Hemoglobin 6.8 g/dL (11.5-16.0); IMMATURE GRAN ABSOLUTE AUTO 0.05 K/mm3 (0.00-0.10); IMMATURE GRAN PERCENT AUTO 1 % (0-1); LYMPHOCYTES ABSOLUTE AUTO 2.56 K/mm3 (0.84-5.20); LYMPHOCYTES PERCENT AUTO 27 % (21-46); MONOCYTES ABSOLUTE AUTO 0.99 K/mm3 (0.16-1.47); MONOCYTES PERCENT AUTO 10 % (4-13); Mean Corpuscular HGB 24.8 pg (26.0-34.0); Mean Corpuscular HGB Conc 30.9 g/dL (31.5-36.5); Mean Corpuscular Volume 80 fL (80-100); Mean Platelet Volume 9.5 fL (9.1-12.4); NEUTROPHILS ABSOLUTE AUTO 5.25 K/mm3 (1.96-9.15); NEUTROPHILS PERCENT AUTO 55 % (41-73); Platelet Count 301 K/mm3 (150-400); RDW Coefficient Variation 18.4 % (11.7-14.2); RDW Standard Deviation 53.8 fL (35.1-46.3); Red Blood Cell Count 2.74 M/mm3 (3.80-5.20); White Blood Cell Count 9.51 K/mm3 (4.00-11.30)
[2019-08-03 04:29] LABS: International Normalized Ratio 1.1; Prothrombin Time Results 11.7 Sec (9.7-11.5)
[2019-08-03 04:49] LABS: Albumin, Blood 2.5 g/dL (3.4-5.0); Anion Gap 6 mmol/L (6-16); Blood Urea Nitrogen 30 mg/dL (8-24); Bun/Creatinine Ratio 23.1 (12.0-20.0); CO2, Blood 25 mmol/L (21-32); Chloride, Blood 108 mmol/L (98-108); Glomerular Filtration Rate 44 (60-); Glucose, Blood 81 mg/dL (70-99); Phosphorus, Blood 4.1 mg/dL (2.5-4.9); Potassium, Blood 4.3 mmol/L (3.5-5.5); Sodium, Blood 139 mmol/L (136-145)
--- NOTE | 2019-08-03 05:11 | NUR ---
HGB 6.[address] ARAIZA R/T HGB OF 6.8. AWAITING RETURN CALL. PT DENIES SOB, SKIN IS LESS PALE THAN EARLIER IN SHIFT. CALL LIGHT IN REACH. PT RESTING IN BED.
--- NOTE | 2019-08-03 05:18 | NUR ---
SHIFT SUMMARY POD 1 R HIP REPAIR PT AAOX4, VSS. BLOOD PRESSURES REMAINED ABOVE 100 DURING SHIFT. 1 UNIT PRBC INFUSED BEGINNING OF SHIFT. HGB INCREASED FROM 6.6 TO 6.8. AWAITING NEW ORDERS AT THIS TIME. PT DENIES SOB AND REMAINS ASYMPTOMATIC. DRESSINGS ON SURGICAL SITE APPEAR CDI. SWELLING HAS NOT INCREASED IN LEGS OR ABDOMEN DURING SHIFT. ABDOMEN SOFT ON PALPATION, NO BRUISING SEEN ON BACKSIDE. LUNG SOUNDS CLEAR POLLOCK PATENT AND DRAINING DURING SHIFT. TOLERATING PO. MEDICATED FOR PAIN PER EMAR, DENIES NAUSEA. PULSES AUSCULTATED WITH DOPPLER TODAY LOWER EXTREMETIES ARE EDEMETOUS
--- NOTE | 2019-08-03 05:40 | NUR ---
SPOKE TO DR ARAIZA R/T HGB OF 6.8. ORDERS TO INFUSED 1 UNIT PRBC GIVEN.
--- NOTE | 2019-08-03 07:02 | NUR ---
transfusion 1 unit prbc began infusing. lung sounds clear before and after 15 minutes. rate increased. pt tolerating well, denies sob, denies itching, no redness seen. call light in reach
[2019-08-03 11:46] LABS: Hematocrit 23.8 % (33.0-51.0); Hemoglobin 7.6 g/dL (11.5-16.0)
--- NOTE | 2019-08-03 12:04 | NUR ---
DR. MCCORMACK NOTIFIED OF H&H OF 7.6 AND 23.8 AFTER 1 UNIT PRBC. WILL CONTINUE TO MONITOR. NO NEW ORDERS AT THIS TIME. PT IS ASYMPTOMATIC, BP STABLE.
--- NOTE | 2019-08-03 12:14 | NUR ---
JANEY WRAP IN PLACE.
--- NOTE | 2019-08-03 18:44 | NUR ---
SHIFT SUMMARY PAIN HAS BEEN WITH PO PAIN MEDICATION. PT IS A 1-2 PERSON ASSIST WITH ACTIVITY. VSS. WILL MONITOR UNTIL REPORT TO ONCOMING RN.
--- NOTE | 2019-08-04 04:15 | NUR ---
SHIFT SUMMARY POD 2 R HIP NAILING. AA0X4, VSS. PT UP FROM CHAIR TO BED WITH 2 PERSON MOD ASSIST, FWW WITH GB. DENIED DIZZINESS OR SOB WITH TRANSFER. PULSES PALPABLE X4. PT TOLERATING PO WELL. POLLOCK PATENT AND DRAINING, PLAN TO REMOVE THIS AM. SKIN DID NOT APPEAR PALE AND NO BRUISING SEEN. JANEY WRAP IN PLACE CDI ON RIGHT LOWER EXTREMITY. AWAITING MORNING LABS FOR H&H.
[2019-08-04 04:46] LABS: BASOPHILS ABSOLUTE AUTO 0.05 K/mm3 (0.00-0.23); BASOPHILS PERCENT AUTO 1 % (0-2); EOSINOPHILS ABSOLUTE AUTO 0.77 K/mm3 (0.00-0.68); EOSINOPHILS PERCENT AUTO 8 % (0-6); Hematocrit 22.2 % (33.0-51.0); IMMATURE GRAN ABSOLUTE AUTO 0.05 K/mm3 (0.00-0.10); IMMATURE GRAN PERCENT AUTO 1 % (0-1); LYMPHOCYTES ABSOLUTE AUTO 1.96 K/mm3 (0.84-5.20); LYMPHOCYTES PERCENT AUTO 19 % (21-46); MONOCYTES PERCENT AUTO 11 % (4-13); Mean Corpuscular HGB 25.4 pg (26.0-34.0); Mean Corpuscular HGB Conc 31.5 g/dL (31.5-36.5); Mean Corpuscular Volume 80 fL (80-100); Mean Platelet Volume 9.8 fL (9.1-12.4); NEUTROPHILS ABSOLUTE AUTO 6.18 K/mm3 (1.96-9.15); NEUTROPHILS PERCENT AUTO 61 % (41-73); Platelet Count 285 K/mm3 (150-400); RDW Coefficient Variation 18.4 % (11.7-14.2); RDW Standard Deviation 53.3 fL (35.1-46.3); Red Blood Cell Count 2.76 M/mm3 (3.80-5.20); White Blood Cell Count 10.11 K/mm3 (4.00-11.30)
[2019-08-04 05:03] LABS: Albumin, Blood 2.4 g/dL (3.4-5.0); Anion Gap 5 mmol/L (6-16); Blood Urea Nitrogen 32 mg/dL (8-24); Bun/Creatinine Ratio 25.4 (12.0-20.0); CO2, Blood 24 mmol/L (21-32); Chloride, Blood 108 mmol/L (98-108); Creatinine, Blood 1.26 mg/dL (0.40-1.00); Glomerular Filtration Rate 46 (60-); Glucose, Blood 160 mg/dL (70-99); Magnesium, Blood 1.9 mg/dL (1.6-2.4); Phosphorus, Blood 3.6 mg/dL (2.5-4.9); Potassium, Blood 4.4 mmol/L (3.5-5.5); Sodium, Blood 137 mmol/L (136-145)
--- NOTE | 2019-08-04 11:56 | NUR ---
H&H DR. MCCORMACK NOTIFIED OF LOW H&H 7.0 AND 22.2. PT IS MILDLY DIZZY WITH ACTIVITY. NO SIGNS OF BLEEDING. ORTHOSTATIC VS SHOWED INCREASE IN BP UPON STANDING AND DECREASE WHEN SITTING AND LAYING. BLE ARE SWOLLEN 2+ PITTING EDEMA. WILL CONTINUE TO MONITOR.
[2019-08-05 04:25] LABS: BASOPHILS ABSOLUTE AUTO 0.04 K/mm3 (0.00-0.23); BASOPHILS PERCENT AUTO 0 % (0-2); EOSINOPHILS PERCENT AUTO 5 % (0-6); Hematocrit 22.6 % (33.0-51.0); IMMATURE GRAN ABSOLUTE AUTO 0.07 K/mm3 (0.00-0.10); IMMATURE GRAN PERCENT AUTO 1 % (0-1); LYMPHOCYTES ABSOLUTE AUTO 1.64 K/mm3 (0.84-5.20); LYMPHOCYTES PERCENT AUTO 14 % (21-46); MONOCYTES ABSOLUTE AUTO 1.15 K/mm3 (0.16-1.47); MONOCYTES PERCENT AUTO 10 % (4-13); Mean Corpuscular Volume 81 fL (80-100); Mean Platelet Volume 9.3 fL (9.1-12.4); NEUTROPHILS ABSOLUTE AUTO 8.22 K/mm3 (1.96-9.15); NEUTROPHILS PERCENT AUTO 70 % (41-73); Platelet Count 330 K/mm3 (150-400); RDW Coefficient Variation 18.9 % (11.7-14.2); RDW Standard Deviation 54.8 fL (35.1-46.3); White Blood Cell Count 11.72 K/mm3 (4.00-11.30)
[2019-08-05 04:41] LABS: Albumin, Blood 2.6 g/dL (3.4-5.0); Anion Gap 5 mmol/L (6-16); Blood Urea Nitrogen 31 mg/dL (8-24); Bun/Creatinine Ratio 25.6 (12.0-20.0); CO2, Blood 25 mmol/L (21-32); Calcium, Blood 8.4 mg/dL (8.5-10.1); Chloride, Blood 108 mmol/L (98-108); Creatinine, Blood 1.21 mg/dL (0.40-1.00); Glomerular Filtration Rate 48 (60-); Glucose, Blood 136 mg/dL (70-99); Magnesium, Blood 1.8 mg/dL (1.6-2.4); Phosphorus, Blood 2.8 mg/dL (2.5-4.9); Potassium, Blood 4.5 mmol/L (3.5-5.5); Sodium, Blood 138 mmol/L (136-145)
--- NOTE | 2019-08-05 05:10 | NUR ---
SHIFT SUMMARY POD 3 R HIP NAILING. AA0X4, VSS. NO CONFUSION TODAY. RIGHT LEG STILL SWOLLEN, BRUISING NOTICED ON RIGHT HIP TO RIGHT LOWER BACK. PT REPORTS "FEELING LIKE SHE IS BRUISED" IN THAT AREA. PULSES PALPABLE IN ALL EXTREMETIES. MEDICATED PER EMAR FOR PAIN. PT HAS BEEN 1-2 ASSIST TO BSC, PT FOLLOWING PRECAUTIONS. PT RESTING IN BED DURING SHIFT.
--- NOTE | 2019-08-05 07:37 | NUR ---
DR DAVIDSON HERE, ASSISTED WITH DRESSING CHANGE, NEW JANEY WRAP APPLIED PER DR DAVIDSON. PT UP TO CHAIR.
--- NOTE | 2019-08-05 09:08 | NUR ---
THERAPY WORKING WITH PT.
--- NOTE | 2019-08-05 09:30 | NUR ---
PT ALSO HAS REDNESS UNDER L BREAST, BABY POWDER APPLIED.
--- NOTE | 2019-08-05 10:38 | NUR ---
DR YOUSSEF HERE RECENTLY TO SEE PT, DISCUSSED PT'S STATUS INCLUDING PT'S HX.
--- NOTE | 2019-08-05 14:12 | NUR ---
BLOOD STARTED AFTER 2 RN CHECK. PT LS DIM/CLEAR. PT USING I/S CORRECTLY. PT REPORTS UNDERSTANDING S/SX OF REACTION.
--- NOTE | 2019-08-05 18:45 | NUR ---
SHIFT SUMMARY PT EATING AND DRINKING, VOIDING, HAD BM THIS EVENING. PT HAD 1 UNIT OF BLOOD TODAY WITHOUT DIFFICULTY. PT BEEN ASSISTED WITH ADL'S PRN. PT BEEN UP TO CHAIR. PT USING CALL LIGHT APPR.
--- NOTE | 2019-08-06 04:57 | NUR ---
SHIFT SUMMARY PT A/OX4 W/ VSS; APPEARS TO HAVE RESTED WELL T/O SHIFT. DRESSING/JANEY WRAP TO LLE/HIP C/D/I. UP TO BSC WITH ASSISTANCE, HAD BM AND VOIDING W/OUT DIFFICULTY. TOLERATING PO INTAKE. NO C/O PAIN OR DISCOMFORT. NO ACUTE CHANGES THIS SHIFT. IS CURRENTLY RESTING IN BED WITH CALL LIGHT IN REACH. WILL CONT TO MONITOR AND GIVE REPORT TO ONCOMING RN.
--- NOTE | 2019-08-06 07:53 | NUR ---
08/06/19 0753 Jackelyn Alarcon VERIFICATIONS: EDIT CHART.
--- NOTE | 2019-08-06 09:11 | NUR ---
VERIFIED CT ORDER WITH DR DAVIDSON, REPORTS TO CONT WITH ORDER.
[2019-08-06 10:37] LABS: BASOPHILS ABSOLUTE AUTO 0.04 K/mm3 (0.00-0.23); BASOPHILS PERCENT AUTO 0 % (0-2); EOSINOPHILS ABSOLUTE AUTO 0.35 K/mm3 (0.00-0.68); EOSINOPHILS PERCENT AUTO 3 % (0-6); Hematocrit 26.7 % (33.0-51.0); Hemoglobin 8.5 g/dL (11.5-16.0); IMMATURE GRAN ABSOLUTE AUTO 0.11 K/mm3 (0.00-0.10); IMMATURE GRAN PERCENT AUTO 1 % (0-1); LYMPHOCYTES ABSOLUTE AUTO 1.23 K/mm3 (0.84-5.20); LYMPHOCYTES PERCENT AUTO 10 % (21-46); MONOCYTES ABSOLUTE AUTO 0.91 K/mm3 (0.16-1.47); MONOCYTES PERCENT AUTO 8 % (4-13); Mean Corpuscular HGB 26.2 pg (26.0-34.0); Mean Corpuscular HGB Conc 31.8 g/dL (31.5-36.5); Mean Corpuscular Volume 82 fL (80-100); Mean Platelet Volume 9.4 fL (9.1-12.4); NEUTROPHILS ABSOLUTE AUTO 9.57 K/mm3 (1.96-9.15); NEUTROPHILS PERCENT AUTO 78 % (41-73); NRBC ABSOLUTE 0.02 K/mm3 (0.00-0.02); NRBC Auto 0.2 /100 WBC (0.0-0.2); Platelet Count 368 K/mm3 (150-400); RDW Coefficient Variation 19.3 % (11.7-14.2); RDW Standard Deviation 57.4 fL (35.1-46.3); Red Blood Cell Count 3.25 M/mm3 (3.80-5.20); White Blood Cell Count 12.21 K/mm3 (4.00-11.30)
--- NOTE | 2019-08-06 14:18 | NUR ---
PT IV OUT WNL. BOOT IN PLACE TO LLE. DISCUSSED WEIGHT BEARING STATUS.
--- NOTE | 2019-08-06 15:09 | NUR ---
PT LEFT WITH TRANSPORT RECENTLY TO [facility]. [employer] ARCHITECT ASSISTED WITH DISCHARGE. IV OUT WNL. PT SENT WITH PAPERWORK, SCRIPTS, BELONGINGS. REPORT GIVEN TO HERMILA AT [facility]. PT EATING AND DRINKING, VOIDING, HAD BM, PAIN CONTROLLED ON PO PAIN MEDICATION. PT HAD SMALL AMT OF REDNESS ON BOTTOM AFTER GETTING OFF OF BSC EARLIER, NO B/D OR OPEN SORES NOTED.
== END 2019-08-06 14:55 | DRG 481 ==
LOC: ER 20:11 → MEDS 23:24 → SURS 08-02 11:35
PROVIDERS: Emergency Medicine; Internal Medicine; Internal Medicine Gastroenterology; Nurse Practitioner Acute Care; Orthopaedic Surgery; ADMIT Internal Medicine
PROC: 30233N1 Transfusion of Nonautologous Red Blood Cells into Peripheral Vein, Percutaneous Approach (ICD-10-PCS; 2019-08-02)
PROC: 0QS604Z Reposition Right Upper Femur with Internal Fixation Device, Open Approach (ICD-10-PCS; principal; 2019-08-02 12:30)
DX: S72.141A Displaced intertrochanteric fracture of right femur, initial encounter for closed fracture (principal); I13.0 Hypertensive heart and chronic kidney disease with heart failure and stage 1 through stage 4 chronic kidney disease, or unspecified chronic kidney disease; D62 Acute posthemorrhagic anemia; E11.22 Type 2 diabetes mellitus with diabetic chronic kidney disease; N18.3 Chronic kidney disease, stage 3 (moderate); I50.9 Heart failure, unspecified; F17.210 Nicotine dependence, cigarettes, uncomplicated; F32.9 Major depressive disorder, single episode, unspecified; G25.81 Restless legs syndrome; I95.89 Other hypotension; Z95.1 Presence of aortocoronary bypass graft; W19.XXXA Unspecified fall, initial encounter; Z98.1 Arthrodesis status; I25.10 Atherosclerotic heart disease of native coronary artery without angina pectoris; K21.9 Gastro-esophageal reflux disease without esophagitis; E78.5 Hyperlipidemia, unspecified; Z79.4 Long term (current) use of insulin; E11.43 Type 2 diabetes mellitus with diabetic autonomic (poly)neuropathy; K31.84 Gastroparesis
CPT/HCPCS: 36415; 71045; 72192; 73502; 73552; 73610; 73630; 73700; 76377; 80048; 80069; 82947; 83735; 83880; 85014; 85018; 85025; 85610; 85730; 86850; 86900; 86901; 86923; 93005; 93010; 94762; 96374; 96375; 97110; 97162; 97530; 99285-25; A9270-GY; C1713; C1769; J0690; J1885; J2060; J2370; J2405; J2704; J2765; J3010; J3480; J7030; J7120; P9016

== ENCOUNTER 2021-05-07 16:25 | Emergency (ER) | payer BC ==
[~2021-05-07] VITALS: Ht 157.5 cm; Wt 81.7 kg
[~2021-05-07 16:25] MED LIST changes: +ACET325 PO; +ALBU90OI INH; +ALLO100 PO; +ATOR40TA PO; +Aspir 8181 MG PO; +BACL10 PO; +CALCIUM CITRATE PO; +CLOB.05TO TOP; +Clobetasol Prop50 ML TOP; +Coreg25 MG PO; +DIPH50 PO; +ESCI20 PO; +INSULANPEN SC; +JARDIANCE10 MG PO; +METFORMIN HCL500 M3 PO; +ONDA4ODT SL; +PANTOPRAZOLE SO40 M1 PO; +Plavix75 MG PO; +TRULICITY1.5 MG/0.5 SC; +VITAMIN D3125 MCG PO
[2021-05-07 17:22] LABS: BASOPHILS ABSOLUTE AUTO 0.08 K/mm3 (0.00-0.23); BASOPHILS PERCENT AUTO 1 % (0-2); EOSINOPHILS ABSOLUTE AUTO 0.72 K/mm3 (0.00-0.68); EOSINOPHILS PERCENT AUTO 5 % (0-6); Hematocrit 28.4 % (33.0-51.0); IMMATURE GRAN ABSOLUTE AUTO 0.16 K/mm3 (0.00-0.10); IMMATURE GRAN PERCENT AUTO 1 % (0-1); LYMPHOCYTES ABSOLUTE AUTO 1.99 K/mm3 (0.84-5.20); LYMPHOCYTES PERCENT AUTO 15 % (21-46); MONOCYTES ABSOLUTE AUTO 1.21 K/mm3 (0.16-1.47); MONOCYTES PERCENT AUTO 9 % (4-13); Mean Corpuscular HGB 26.5 pg (26.0-34.0); Mean Corpuscular HGB Conc 31.7 g/dL (31.5-36.5); Mean Corpuscular Volume 84 fL (80-100); Mean Platelet Volume 9.7 fL (9.1-12.4); NEUTROPHILS ABSOLUTE AUTO 9.29 K/mm3 (1.96-9.15); NEUTROPHILS PERCENT AUTO 69 % (41-73); Platelet Count 384 K/mm3 (150-400); RDW Coefficient Variation 15.4 % (11.7-14.2); RDW Standard Deviation 46.8 fL (35.1-46.3); White Blood Cell Count 13.45 K/mm3 (4.00-11.30)
[2021-05-07 17:45] LABS: Alanine Aminotransfer (ALT/SGP 19 U/L (12-78); Albumin, Blood 3.4 g/dL (3.4-5.0); Albumin/Globulin Ratio 0.8 (0.8-1.8); Alk Phos 157 U/L (50-136); Anion Gap 6 mmol/L (6-16); Aspartate Aminotrans (AST/SGOT 12 U/L (12-37); Bilirubin, Total 0.4 mg/dL (0.1-1.0); Blood Urea Nitrogen 68 mg/dL (8-24); Bun/Creatinine Ratio 37.6 (12.0-20.0); CO2, Blood 24 mmol/L (21-32); Calcium, Blood 9.2 mg/dL (8.5-10.1); Chloride, Blood 104 mmol/L (98-108); Creatinine, Blood 1.81 mg/dL (0.40-1.00); Globulin, Blood 4.2 g/dL (2.2-4.0); Glomerular Filtration Rate 28 (60-); Glucose, Blood 179 mg/dL (70-99); Potassium, Blood 4.6 mmol/L (3.5-5.5); Sodium, Blood 134 mmol/L (136-145); Total Protein, Blood 7.6 g/dL (6.4-8.2); Troponin I <0.015 ng/mL (0.000-0.040)
[2021-05-07] MEDS ORDERED: INSULANI SC (20:01)
[2021-05-07] MEDS ORDERED: CYMBALTA30 M2 PO (20:03)
[2021-05-07] MEDS ORDERED: LOSA50 PO ×2 (20:03→20:05)
[2021-05-07] MEDS ORDERED: HYDR100 PO (20:04)
[2021-05-07] MEDS ORDERED: INSULIN LI100 UNIT/6 SC (20:05)
[2021-05-07] MEDS ORDERED: FURO40 PO (20:44)
== END 2021-05-07 20:57 | disposition home or self-care (01) ==
LOC: ER 16:25
PROVIDERS: Physician Assistant
DX: E11.22 Type 2 diabetes mellitus with diabetic chronic kidney disease (principal); N18.9 Chronic kidney disease, unspecified; R60.0 Localized edema; Z88.5 Allergy status to narcotic agent; Z91.018 Allergy to other foods; Z79.899 Other long term (current) drug therapy; Z79.4 Long term (current) use of insulin; Z79.82 Long term (current) use of aspirin; I50.9 Heart failure, unspecified; E11.43 Type 2 diabetes mellitus with diabetic autonomic (poly)neuropathy; K31.84 Gastroparesis
CPT/HCPCS: 36415; 71046; 80053; 83880; 84484; 85025; 93005; 93010; 99284-25; A9270

== ENCOUNTER → 2021-12-13 | Outpatient (CLI) | payer OTHER ==
[~2021-12-13] MED LIST changes: +CYMBALTA30 M2 PO; +FURO40 PO; +HYDR100 PO; +INSULANI SC; +INSULIN LI100 UNIT/6 SC
[2021-12-13 16:13] LABS: Percent Saturation 22.4 % (15.0-50.0)
== END | disposition home or self-care (01) ==
LOC: LAB SHORT 14:03 → LAB 14:03
PROVIDERS: Internal Medicine Hematology & Oncology
DX: D64.9 Anemia, unspecified (principal); E53.8 Deficiency of other specified B group vitamins
CPT/HCPCS: 82607; 82728; 82746; 83540; 83550

== ENCOUNTER 2022-02-12 16:11 | Emergency (ER) | payer OTHER ==
[~2022-02-12] VITALS: Ht 157.5 cm; Wt 90.7 kg
[~2022-02-12 16:11] MED LIST changes: +AMLO5 PO; +LANSOPRAZOLE30 MG PO
[2022-02-12] MEDS ORDERED: LIDO700A20 TOP (20:16)
[2022-02-12] MEDS ORDERED: OXAYDO5 M1 PO (20:16)
== END 2022-02-12 20:35 | disposition home or self-care (01) ==
LOC: ER 16:11
DX: S43.401A Unspecified sprain of right shoulder joint, initial encounter (principal); S50.01XA Contusion of right elbow, initial encounter; S80.01XA Contusion of right knee, initial encounter; E11.22 Type 2 diabetes mellitus with diabetic chronic kidney disease; N18.9 Chronic kidney disease, unspecified; I50.9 Heart failure, unspecified; V87.8XXA Person injured in other specified noncollision transport accidents involving motor vehicle (traffic), initial encounter; Z88.5 Allergy status to narcotic agent; Z88.8 Allergy status to other drugs, medicaments and biological substances; Z91.018 Allergy to other foods; Z79.4 Long term (current) use of insulin; Z79.899 Other long term (current) drug therapy; Z79.82 Long term (current) use of aspirin; Z95.1 Presence of aortocoronary bypass graft
CPT/HCPCS: 73030; 73070; 73562-RT; 90471; 90714; 96372; 99284-25; A9270; J1885

== ENCOUNTER → 2022-03-14 | Outpatient (CLI) | payer OTHER ==
[~2022-03-14] MED LIST changes: +LIDO700A20 TOP; +OXAYDO5 M1 PO
[2022-03-14 16:08] LABS: BASOPHILS ABSOLUTE AUTO 0.07 K/mm3 (0.00-0.23); BASOPHILS PERCENT AUTO 1 % (0-2); EOSINOPHILS ABSOLUTE AUTO 0.52 K/mm3 (0.00-0.68); EOSINOPHILS PERCENT AUTO 4 % (0-6); Hematocrit 28.1 % (33.0-51.0); IMMATURE GRAN ABSOLUTE AUTO 0.28 K/mm3 (0.00-0.10); IMMATURE GRAN PERCENT AUTO 2 % (0-1); LYMPHOCYTES PERCENT AUTO 7 % (21-46); MONOCYTES ABSOLUTE AUTO 1.04 K/mm3 (0.16-1.47); MONOCYTES PERCENT AUTO 7 % (4-13); Mean Corpuscular HGB 30.5 pg (26.0-34.0); Mean Corpuscular Volume 95 fL (80-100); Mean Platelet Volume 10.3 fL (9.1-12.4); NEUTROPHILS ABSOLUTE AUTO 11.93 K/mm3 (1.96-9.15); NEUTROPHILS PERCENT AUTO 80 % (41-73); Platelet Count 303 K/mm3 (150-400); RDW Standard Deviation 55.1 fL (35.1-46.3); Red Blood Cell Count 2.95 M/mm3 (3.80-5.20); White Blood Cell Count 14.94 K/mm3 (4.00-11.30)
[2022-03-14 16:17] LABS: Albumin, Blood 3.8 g/dL (3.4-5.0); Albumin/Globulin Ratio 1.1 (0.8-1.8); Bilirubin, Total 1.3 mg/dL (0.1-1.0); Calcium, Blood 8.8 mg/dL (8.5-10.1); Creatinine, Blood 2.04 mg/dL (0.40-1.00); Globulin, Blood 3.4 g/dL (2.2-4.0); Potassium, Blood 4.6 mmol/L (3.5-5.5); Total Protein, Blood 7.2 g/dL (6.4-8.2)
== END ==
LOC: LAB SHORT 16:03
PROVIDERS: Physician Assistant
DX: R07.9 Chest pain, unspecified (principal)
CPT/HCPCS: 80053; 84484; 85025

== ENCOUNTER → 2022-04-29 | Outpatient (CLI) | payer OTHER ==
[2022-04-29 18:18] LABS: Body Fluid Crystals NEG (NEGATIVE)
== END | disposition home or self-care (01) ==
LOC: LAB SHORT 17:45 → LAB 17:45
PROVIDERS: Family Medicine
DX: M70.22 Olecranon bursitis, left elbow (principal)
CPT/HCPCS: 89060

== ENCOUNTER → 2023-01-04 | Outpatient (CLI) | payer OTHER ==
[2023-01-04 19:35] LABS: Albumin, Blood 3.9 g/dL (3.4-5.0); Albumin/Globulin Ratio 1.3 (0.8-1.8); Bilirubin, Total 0.5 mg/dL (0.1-1.0); Bun/Creatinine Ratio 26.7 (12.0-20.0); Calcium, Blood 9.4 mg/dL (8.5-10.1); Creatinine, Blood 1.8 mg/dL (0.40-1.00); Globulin, Blood 3.1 g/dL (2.2-4.0); Phosphorus, Blood 3.6 mg/dL (2.5-4.9); Potassium, Blood 4.6 mmol/L (3.5-5.5)
== END | disposition home or self-care (01) ==
LOC: LAB SHORT 11:49 → LAB 11:49
PROVIDERS: Internal Medicine Hematology & Oncology
DX: D50.0 Iron deficiency anemia secondary to blood loss (chronic) (principal)
CPT/HCPCS: 80053; 84100

== ENCOUNTER → 2023-12-12 | Outpatient (CLI) | payer OTHER | END | disposition home or self-care (01) | LOC: LAB SHORT 13:16 → LAB 13:16 | DX: R30.0 Dysuria (principal) | CPT/HCPCS: 87086 ==

== ENCOUNTER 2024-06-24 13:25 | Inpatient (IN) | payer OTHER ==
[~2024-06-24] VITALS: Ht 157.5 cm; Wt 90.0 kg
[~2024-06-24 13:25] MED LIST changes: +Atarax10 MG PO; +BUPR150ER PO; +CALC.25 PO; +CARV25 PO; +FOLI1 PO; +FURO20 PO; +PLAVIX75 MG PO; +PREGABALIN50 MG PO; +SODBIC650 PO; +SPIR25 PO
[2024-06-24] MEDS ORDERED: FentaNYL Citrate 50 MCG/ML 2 ML Injection IV ONE ×2 (16:30→16:35)
[2024-06-24] MEDS ORDERED: HYDROmorphone HCl/Pf 1MG SYR IV ONE (18:45)
[2024-06-24 20:44] LABS: International Normalized Ratio 0.99; Prothrombin Time Results 10.6 Sec (9.7-11.5)
[2024-06-24 21:22] LABS: BASOPHILS ABSOLUTE AUTO 0.07 K/mm3 (0.00-0.23); BASOPHILS PERCENT AUTO 1 % (0-2); EOSINOPHILS ABSOLUTE AUTO 0.12 K/mm3 (0.00-0.68); EOSINOPHILS PERCENT AUTO 1 % (0-6); Hematocrit 30.4 % (33.0-51.0); Hemoglobin 9.5 g/dL (11.5-16.0); IMMATURE GRAN ABSOLUTE AUTO 0.07 K/mm3 (0.00-0.10); IMMATURE GRAN PERCENT AUTO 1 % (0-1); LYMPHOCYTES ABSOLUTE AUTO 0.79 K/mm3 (0.84-5.20); LYMPHOCYTES PERCENT AUTO 5 % (21-46); MONOCYTES ABSOLUTE AUTO 1.21 K/mm3 (0.16-1.47); MONOCYTES PERCENT AUTO 8 % (4-13); Mean Corpuscular HGB 28.9 pg (26.0-34.0); Mean Corpuscular HGB Conc 31.3 g/dL (31.5-36.5); Mean Corpuscular Volume 92 fL (80-100); Mean Platelet Volume 10.7 fL (9.1-12.4); NEUTROPHILS ABSOLUTE AUTO 13.04 K/mm3 (1.96-9.15); NEUTROPHILS PERCENT AUTO 85 % (41-73); Platelet Count 319 K/mm3 (150-400); RDW Standard Deviation 50.3 fL (35.1-46.3); Red Blood Cell Count 3.29 M/mm3 (3.80-5.20)
[2024-06-24 21:43] LABS: Albumin, Blood 3.8 g/dL (3.4-5.0); Albumin/Globulin Ratio 1.1 (0.8-1.8); Bilirubin, Total 0.5 mg/dL (0.1-1.0); Bun/Creatinine Ratio 15.7 (12.0-20.0); Calcium, Blood 9.6 mg/dL (8.5-10.1); Creatinine, Blood 4.01 mg/dL (0.40-1.00); Globulin, Blood 3.4 g/dL (2.2-4.0); Potassium, Blood 4.7 mmol/L (3.5-5.5); Total Protein, Blood 7.2 g/dL (6.4-8.2)
[2024-06-24] MEDS ORDERED: Acetaminophen 325 MG TABLET PO PRN (22:45)
[2024-06-24] MEDS ORDERED: Ondansetron HCl 2 MG / ML 2ML Vial IV PRN (22:45)
[2024-06-24] MEDS ORDERED: Naloxone HCl 0.4MG / ML 1ML Vial IV PRN (22:45)
[2024-06-24] MEDS ORDERED: FLU VACC TS2024-25(6MOS UP)/PF 45 MCG/0.5 ML SYRINGE IM SCH (22:50)
[2024-06-24] MEDS ORDERED: HYDROmorphone HCl/Pf 1MG SYR IV PRN (22:50)
[2024-06-25] VITALS (15 sets, daily range): BP systolic 118–157; BP diastolic 56–95
[2024-06-25] MEDS ORDERED: Insulin Regular 100 UNIT/ML 10ML Vial SC SCH
[2024-06-25] MEDS ORDERED: Lactated Ringer's 1,000 ML IV SCH
[2024-06-25] MEDS ORDERED: Lactated Ringer's 1,000 ML IV ONE (00:01)
--- NOTE | 2024-06-25 06:02 | NUR ---
TRANSFER FROM ED TO SURGICAL FLOOR PT ARRIVED TO SURGICAL FLOOR AT 0525 TODAY. PT A/OX4 WITH VSS. C/O OF TOLERABLE PAIN IN LLE RELATED TO GROUND LEVEL FALL EARLIER TODAY. LLE IN IMMOBILIZER BRACE. STRONG BILATERAL PEDAL PULSES WITH BRISK CAP REFILL, +2 EDEMA NOTED IN LEFT FOOT. SPO2 ABOVE 94% 2L NC. PORT TO RIGHT UPPER CHEST IN PLACE WITH TAPE CDI. IVF INFUSING PER ORDERS. PT CURRENTLY RESTING IN BED WITH EYES CLOSED, RR EVEN. HAS CALL LIGHT IN REACH. PLAN TO GIVE REPORT TO ONCOMING RN
[2024-06-25 06:24] LABS: BASOPHILS ABSOLUTE AUTO 0.06 K/mm3 (0.00-0.23); BASOPHILS PERCENT AUTO 1 % (0-2); EOSINOPHILS ABSOLUTE AUTO 0.29 K/mm3 (0.00-0.68); EOSINOPHILS PERCENT AUTO 3 % (0-6); Hematocrit 29.8 % (33.0-51.0); Hemoglobin 9.4 g/dL (11.5-16.0); IMMATURE GRAN ABSOLUTE AUTO 0.05 K/mm3 (0.00-0.10); IMMATURE GRAN PERCENT AUTO 0 % (0-1); LYMPHOCYTES ABSOLUTE AUTO 1.83 K/mm3 (0.84-5.20); LYMPHOCYTES PERCENT AUTO 16 % (21-46); MONOCYTES ABSOLUTE AUTO 1.32 K/mm3 (0.16-1.47); MONOCYTES PERCENT AUTO 12 % (4-13); Mean Corpuscular HGB 29.6 pg (26.0-34.0); Mean Corpuscular HGB Conc 31.5 g/dL (31.5-36.5); Mean Corpuscular Volume 94 fL (80-100); Mean Platelet Volume 10.4 fL (9.1-12.4); NEUTROPHILS ABSOLUTE AUTO 7.92 K/mm3 (1.96-9.15); NEUTROPHILS PERCENT AUTO 69 % (41-73); Platelet Count 301 K/mm3 (150-400); RDW Coefficient Variation 14.8 % (11.7-14.2); RDW Standard Deviation 51.3 fL (35.1-46.3); Red Blood Cell Count 3.18 M/mm3 (3.80-5.20); White Blood Cell Count 11.47 K/mm3 (4.00-11.30)
[2024-06-25 06:43] LABS: Albumin, Blood 3.6 g/dL (3.4-5.0); Anion Gap 11 mmol/L (3-11); Blood Urea Nitrogen 68 mg/dL (8-24); Bun/Creatinine Ratio 16.4 (12.0-20.0); CO2, Blood 29 mmol/L (21-32); Calcium, Blood 9.3 mg/dL (8.5-10.1); Chloride, Blood 104 mmol/L (98-108); Creatinine, Blood 4.14 mg/dL (0.40-1.00); Glomerular Filtration Rate 11 (60-); Glucose, Blood 144 mg/dL (70-99); Phosphorus, Blood 6.1 mg/dL (2.5-4.9); Potassium, Blood 4.3 mmol/L (3.5-5.5); Sodium, Blood 140 mmol/L (136-145)
[2024-06-25] MEDS ORDERED: BUPROPION XL150 M1 PO (07:55)
[2024-06-25] MEDS ORDERED: Carvedilol 25 MG Tab PO SCH (08:00)
[2024-06-25] MEDS ORDERED: NS 1,000 ML IV SCH (08:45)
[2024-06-25] MEDS ORDERED: Citalopram Hydrobromide 20 MG Tab PO SCH (09:00)
[2024-06-25] MEDS ORDERED: Ferrous Sulfate 325 MG Tab PO SCH (09:00)
[2024-06-25] MEDS ORDERED: Docusate Sodium 100 MG Cap PO SCH ×2 (09:00→21:00)
[2024-06-25] MEDS ORDERED: Lactobacil 2-S.Thermo-Bifido 1 1 Cap PO SCH (09:00)
[2024-06-25] MEDS ORDERED: Atorvastatin 40 MG Tab PO SCH (09:00)
[2024-06-25] MEDS ORDERED: AmLODIPine Besylate 5 MG Tab PO SCH (09:00)
[2024-06-25] MEDS ORDERED: Calcitriol 0.25 MCG Cap PO SCH (09:00)
[2024-06-25] MEDS ORDERED: buPROPion HCL 150 MG TAB.SR.12H PO SCH (09:00)
[2024-06-25] MEDS ORDERED: Vancomycin HCL 1,000 MG in NS 250 ML IV SCH (09:30)
[2024-06-25] MEDS ORDERED: CeFAZolin Sodium 2,000 MG in NS 100 ML IV SCH (09:30)
[2024-06-25] MEDS ORDERED: Tranexamic Acid 100 ML IV SCH (09:30)
[2024-06-25] MEDS ORDERED: [UNRECOGNIZED DRUG - CODE] PO (09:38)
[2024-06-25] MEDS ORDERED: DERMACINRX FOL1 EAC2 PO (09:39)
[2024-06-25] MEDS ORDERED: MULTI-VITAMIN1 EAC2 PO (09:40)
[2024-06-25] MEDS ORDERED: VITAMIN B121000 MCG PO (09:40)
[2024-06-25] MEDS ORDERED: OxyCODONE HCL 5 MG TAB PO PRN (10:20)
[2024-06-25] MEDS ORDERED: Insulin Human Lispro 100 Units/ML 3ML Syringe SC SCH (12:00)
--- NOTE | 2024-06-25 12:42 | NUR ---
TO DAY SURGERY VIA HOSPITAL BED
--- NOTE | 2024-06-25 13:01 | NUR ---
PT HAS 20G IV TO LEFT HAND THAT FLUSHES WELL AND FLOWS TO GRAVITY.
--- NOTE | 2024-06-25 13:03 | NUR ---
History, Chart, Medications and Allergies reviewed before start of procedure. Lungs clear T/O to Auscultation. Patient confirms NPO status and agrees with scheduled surgery. Pre-Op teaching done. Pt verbalizes understanding. PT BELONGINGS LEFT IN PERSONAL ROOM ON SURGICAL FLOOR. PT TOO PAINFUL FOR ELYSIA HOSE/PAS, PLACED ON BED FOR NOW. OR NOTIFIED.
[2024-06-25] MEDS ORDERED: Rocuronium Bromide 10 MG/ML 5ML Injection IV ONE ×2 (13:20→14:00)
[2024-06-25] MEDS ORDERED: FentaNYL Citrate 50 MCG/ML 5 ML Injection ONE (13:20)
[2024-06-25] MEDS ORDERED: propofoL 20 ML IV ONE (13:20)
[2024-06-25] MEDS ORDERED: Lidocaine HCl 2% 20 ML MDV ONE (13:20)
[2024-06-25] MEDS ORDERED: Magnesium Hydroxide Conc 10 ML UDC PO PRN (13:25)
[2024-06-25] MEDS ORDERED: FLU VACC TS2024-25(6MOS UP)/PF 45 MCG/0.5 ML SYRINGE IM SCH (13:25)
[2024-06-25] MEDS ORDERED: Bisacodyl 10 MG Supp PR PRN (13:30)
[2024-06-25] MEDS ORDERED: Ketorolac Tromethamine 30mg Vial ONE (14:17)
[2024-06-25] MEDS ORDERED: Ondansetron HCl 2 MG / ML 2ML Vial ONE (14:17)
[2024-06-25] MEDS ORDERED: Dexamethasone Sod Phos 10 MG/ML 1ML VIAL ONE (14:17)
[2024-06-25] MEDS ORDERED: Sugammadex Sodium 200 MG/2ML SDV (100 MG/ML) ONE (15:29)
[2024-06-25] MEDS ORDERED: Bupivacaine 0.5% HCl 5 MG/ML 30MLVIAL ONE (15:45)
[2024-06-25] MEDS ORDERED: Darbepoetin Alfa In Albumn Sol 40 MCG/0.4 ML SC SCH (16:00)
--- NOTE | 2024-06-25 19:28 | NUR ---
SUMMARY PT A&OX4, VSS/4LNC, BHARTI PO, DENIES PAIN, SITTING UP WATCHING TV, DAUGHTER BROUGHT IN CPAP-RT TO SET UP, POLLOCK PATENT, REPORT TO ARNEL PHAN.
[2024-06-25] MEDS ORDERED: DiphenhydrAMINE HCl 50 MG Cap PO ONE (20:55)
[2024-06-25] MEDS ORDERED: DiphenhydrAMINE HCL 25 MG Cap PO PRN (21:00)
[2024-06-25] MEDS ORDERED: Folic Acid 1 MG TAB PO SCH (21:00)
[2024-06-25] MEDS ORDERED: Pregabalin 50 MG Capsule PO SCH (21:00)
[2024-06-26] VITALS (15 sets, daily range): BP systolic 113–157; BP diastolic 55–82
[2024-06-26] MEDS ORDERED: Vancomycin HCL 1,000 MG in NS 250 ML IV SCH (01:00)
[2024-06-26] MEDS ORDERED: CeFAZolin Sodium 1,000 MG in NS 50 ML IV SCH (02:00)
--- NOTE | 2024-06-26 04:01 | NUR ---
SHIFT SUMMARY POD1 L HIP FX, KNEE IMMOBILIZER ON LLE. AQUACEL TO L HIP C/D/I. PAIN MANAGED WELL THROUGHOUT NIGHT, POLLOCK IN PLACE TO GRAVITY, YELLOW CLEAR URINE. CPAP AT NIGHT, SATS REMAIN 95 AND ABOVE. AWAITING PT EVAL. VSS, CALL LIGHT IN REACH.
[2024-06-26 05:17] LABS: BASOPHILS ABSOLUTE AUTO 0.01 K/mm3 (0.00-0.23); BASOPHILS PERCENT AUTO 0 % (0-2); EOSINOPHILS PERCENT AUTO 0 % (0-6); Hemoglobin 8.5 g/dL (11.5-16.0); IMMATURE GRAN ABSOLUTE AUTO 0.06 K/mm3 (0.00-0.10); IMMATURE GRAN PERCENT AUTO 1 % (0-1); LYMPHOCYTES ABSOLUTE AUTO 0.37 K/mm3 (0.84-5.20); LYMPHOCYTES PERCENT AUTO 4 % (21-46); MONOCYTES ABSOLUTE AUTO 0.43 K/mm3 (0.16-1.47); MONOCYTES PERCENT AUTO 4 % (4-13); Mean Corpuscular HGB 29.7 pg (26.0-34.0); Mean Corpuscular HGB Conc 31.5 g/dL (31.5-36.5); Mean Corpuscular Volume 94 fL (80-100); Mean Platelet Volume 10.6 fL (9.1-12.4); NEUTROPHILS ABSOLUTE AUTO 9.82 K/mm3 (1.96-9.15); NEUTROPHILS PERCENT AUTO 92 % (41-73); Platelet Count 250 K/mm3 (150-400); RDW Coefficient Variation 14.5 % (11.7-14.2); RDW Standard Deviation 49.8 fL (35.1-46.3); Red Blood Cell Count 2.86 M/mm3 (3.80-5.20); White Blood Cell Count 10.69 K/mm3 (4.00-11.30)
[2024-06-26 05:43] LABS: Albumin, Blood 3.3 g/dL (3.4-5.0); Anion Gap 12 mmol/L (3-11); Blood Urea Nitrogen 68 mg/dL (8-24); Bun/Creatinine Ratio 18.8 (12.0-20.0); CO2, Blood 23 mmol/L (21-32); Calcium, Blood 8.7 mg/dL (8.5-10.1); Chloride, Blood 105 mmol/L (98-108); Creatinine, Blood 3.61 mg/dL (0.40-1.00); Glomerular Filtration Rate 13 (60-); Glucose, Blood 248 mg/dL (70-99); Magnesium, Blood 2.4 mg/dL (1.6-2.4); Potassium, Blood 5.1 mmol/L (3.5-5.5); Sodium, Blood 135 mmol/L (136-145)
[2024-06-26 05:47] LABS: BASOPHILS PERCENT MAN 0 % (0-2); EOSINOPHILS PERCENT MAN 0 % (0-6); LYMPHOCYTES ABSOLUTE MAN 0.53 K/mm3 (0.84-5.20); LYMPHOCYTES PERCENT MAN 5 % (21-46); MONOCYTES PERCENT MAN 0 % (4-13); NEUTROPHILS ABSOLUTE MAN 10.15 K/mm3 (1.96-9.15); SEG NEUTROPHILS PERCENT MAN 95 % (41-73); TOTAL CELLS COUNTED 100
[2024-06-26] MEDS ORDERED: Anticoagulant Sod Citrate Soln 3 ML SYR INJ PRN (07:25)
[2024-06-26] MEDS ORDERED: Insulin Human Lispro 100 Units/ML 3ML Syringe SC SCH (07:30)
[2024-06-26] MEDS ORDERED: Insulin Glargine-Yfgn 100 Unit/mL 3 ML SYR SC SCH (11:00)
[2024-06-26] MEDS ORDERED: Enoxaparin 30 MG/0.3 ML SYR SC SCH (17:00)
[2024-06-26] MEDS ORDERED: Heparin Sodium 5000 Units/ML 1ML MDV SC SCH (17:00)
--- NOTE | 2024-06-26 18:31 | NUR ---
PT POD 1 FOR L HIP FX, KNEE IMMOBILIZER IN PLACE, AQUACEL C/D/I. PT ALERT AND ORIENTED X4, VSS, 2 L NC WHILE AWAKE O2 SATS >90%. DIALYSIS THIS MORNING, PT TOLERATED WELL WITHOUT COMPLAINTS. DRESSINGS CHANGED BY DR. EASTON TODAY, NEW WOUND CARE ORDERS IN PLACE. NO COMPLAINTS OF PAIN WHILE IN BED. PT WORKED WITH PHYSICAL THERAPY TODAY, REPORTED INCREASED PAIN WITH MOVEMENT. PT ABLE TO MAKE NEED KNOWN. CALL LIGHT IN REACH, BED IN LOWEST POSITION.
--- NOTE | 2024-06-27 04:17 | NUR ---
SHIFT SUMMARY POD2 LLE FIXATION. IMMOBILIZER IN PLACE. AQUACEL AND JANEY WRAP C/D/I. DRESSING CHANGE ORDERS IN CHART. NEXT DRESSING CHANGE TO BE 06/28/24. PATIENT IS ON 2-3L NC DURING DAY, CPAP AT NIGHT. CONT. PULSE OX SATS <93-94%. POSSIBLE DIALYSIS IN AM, AWAITING PLACEMENT. MARIS DRUMMOND THIS AM. DENIES PAIN, N/V. VSS. PLEASANT WITH CARES.
[2024-06-27 04:25] VITALS: BP 155/58
[2024-06-27 04:57] LABS: BASOPHILS ABSOLUTE AUTO 0.09 K/mm3 (0.00-0.23); BASOPHILS PERCENT AUTO 1 % (0-2); EOSINOPHILS ABSOLUTE AUTO 0.21 K/mm3 (0.00-0.68); EOSINOPHILS PERCENT AUTO 2 % (0-6); Hematocrit 26.4 % (33.0-51.0); Hemoglobin 8.3 g/dL (11.5-16.0); IMMATURE GRAN ABSOLUTE AUTO 0.05 K/mm3 (0.00-0.10); IMMATURE GRAN PERCENT AUTO 1 % (0-1); LYMPHOCYTES ABSOLUTE AUTO 1.85 K/mm3 (0.84-5.20); LYMPHOCYTES PERCENT AUTO 18 % (21-46); MONOCYTES ABSOLUTE AUTO 1.07 K/mm3 (0.16-1.47); MONOCYTES PERCENT AUTO 10 % (4-13); Mean Corpuscular HGB 28.9 pg (26.0-34.0); Mean Corpuscular HGB Conc 31.4 g/dL (31.5-36.5); Mean Corpuscular Volume 92 fL (80-100); Mean Platelet Volume 10.6 fL (9.1-12.4); NEUTROPHILS PERCENT AUTO 69 % (41-73); Platelet Count 276 K/mm3 (150-400); RDW Coefficient Variation 14.4 % (11.7-14.2); RDW Standard Deviation 48.9 fL (35.1-46.3); Red Blood Cell Count 2.87 M/mm3 (3.80-5.20); White Blood Cell Count 10.37 K/mm3 (4.00-11.30)
[2024-06-27 05:29] LABS: Albumin, Blood 3.2 g/dL (3.4-5.0); Bilirubin, Total 0.6 mg/dL (0.1-1.0); Bun/Creatinine Ratio 17.1 (12.0-20.0); Creatinine, Blood 2.81 mg/dL (0.40-1.00); Globulin, Blood 3.1 g/dL (2.2-4.0); Total Protein, Blood 6.3 g/dL (6.4-8.2)
[2024-06-27 07:54] VITALS: BP 165/62
[2024-06-27] MEDS ORDERED: Aspirin 81 MG Chew PO SCH (09:00)
--- NOTE | 2024-06-27 09:20 | NUR ---
ASSUMPTION OF CARE THIS RN ASSUMED CARE AT APPROX 0715. PATIENT ALERT AND ORIENTED X4. COMMUNICATING NEEDS EFFECTIVELY. SBP 160s - SCHEDULED BP MEDICATIONS ADMINISTERED PER EMAR. DENIES CHEST PAIN, PRESSURE. USES CPAP WITH BLEED IN NOC, 2L VIA NC WHILE AWAKE. SATs >92%. CONTINUOUS OXYGEN MONITORING IN PLACE. OCCASIONAL CONGESTED COUGH NOTED. POD 2 L DISTAL FEMUR FX REPAIR - DRESSINGS C/D/I. CHANGED 06/26/24. PAIN TOLERABLE @ THIS TIME. ABLE TO STAND AT BEDSIDE WITH PHYSICAL THERAPY YESTERDAY. LIMITED MOBILITY TO RLE - USES A WHEELCHAIR AT BASELINE. OCCUPATIONAL THERAPY TO SEE PATIENT THIS MORNING, PATIENT DECLINED TRANSFER TO CHAIR. CALL LIGHT IN REACH.
[2024-06-27 16:17] VITALS: BP 124/50
--- NOTE | 2024-06-27 16:22 | NUR ---
SHIFT SUMMARY NO ACUTE EVENTS SINCE PREVIOUS DOCUMENTATION. PATIENT REMAINS ALERT AND ORIENTED X4. COMMUNICATING NEEDS EFFECTIVELY. VSS. SBP IMPROVED, 120s. DBP SOFT, 50s. MAP >65. EVENING COREG HELD PER EMAR. TITRATED FROM 2L VIA NC TO 1L, SATs >88%. HX OF COPD. DENIES SHORTNESS OF BREATH. UP WITH PHYSICAL THERAPY TO CHAIR WITH SLIDER BOARD AND 2P ASSIST. NWB LLE. DIFFICULTY BEARING WEIGHT ON RLE DUE TO HX OF ANKLE FUSION - USES WHEELCHAIR AT BASELINE. DRESSINGS TO LLE C/D/I. IMMOBILIZER REMAINS IN PLACE. PAIN MANAGED PER EMAR. CALL LIGHT IN REACH. WILL CONTINUE TO MONITOR AND REPORT TO ONCOMING RN.
[2024-06-27 19:21] VITALS: BP 135/58
[2024-06-28] VITALS (17 sets, daily range): BP systolic 63–155; BP diastolic 43–90
--- NOTE | 2024-06-28 04:47 | NUR ---
SHIFT SUMMARY RADHA WAS ALERT AND FULLY ORIENTED ON ASSESMENT. PT PAIN WELL CONTROLLED, NOT REQUIRING MEDS FOR PAIN. PT TOELRATED CPAP FOR MOST OF THE NIGHT, BUT REQUESTED N/C IN EARLY AM, SATTING 92% ON 2.5L PT ABLE TO TRANSFER FROM CHAIR TO BED WITH SLIDE BOARD AND 1 STAFF ASSIST. L LEG IMMOBILIZER IN PLACE, NOT DRAINAGE NOTED TO AQUACEL, OR JANEY BANDAGE. PT RECIEVED 4 UNITS OF INSULIN THAT WAS NOT SCHEDULED AT 2130, THIS WAS A MED ADMINISTRATION ERROR PT WAS DOSED ON Q6 DOSING INSTEAD OF HS DOSING. DR PEREYRA NOTIFIED, VERBAL ORDER TO RECHECK CBG AFTER 2 HOURS, SUBSEQUENT CBG IN 130'S, PT MONITORED, NO S/S OF HYPOGLYCEMIA NOTED. PT CURRENTLY AWAKE IN ROOM. WILL CONTINUE TO MONITOR.
[2024-06-28 05:46] LABS: BASOPHILS ABSOLUTE AUTO 0.09 K/mm3 (0.00-0.23); BASOPHILS PERCENT AUTO 1 % (0-2); EOSINOPHILS ABSOLUTE AUTO 0.88 K/mm3 (0.00-0.68); EOSINOPHILS PERCENT AUTO 8 % (0-6); Hematocrit 27.1 % (33.0-51.0); Hemoglobin 8.5 g/dL (11.5-16.0); IMMATURE GRAN ABSOLUTE AUTO 0.08 K/mm3 (0.00-0.10); IMMATURE GRAN PERCENT AUTO 1 % (0-1); LYMPHOCYTES PERCENT AUTO 22 % (21-46); MONOCYTES ABSOLUTE AUTO 1.15 K/mm3 (0.16-1.47); MONOCYTES PERCENT AUTO 10 % (4-13); Mean Corpuscular HGB 29.5 pg (26.0-34.0); Mean Corpuscular HGB Conc 31.4 g/dL (31.5-36.5); Mean Corpuscular Volume 94 fL (80-100); Mean Platelet Volume 10.9 fL (9.1-12.4); NEUTROPHILS ABSOLUTE AUTO 6.59 K/mm3 (1.96-9.15); NEUTROPHILS PERCENT AUTO 58 % (41-73); Platelet Count 305 K/mm3 (150-400); RDW Coefficient Variation 14.4 % (11.7-14.2); RDW Standard Deviation 49.4 fL (35.1-46.3); Red Blood Cell Count 2.88 M/mm3 (3.80-5.20); White Blood Cell Count 11.29 K/mm3 (4.00-11.30)
[2024-06-28 06:23] LABS: Albumin, Blood 3.2 g/dL (3.4-5.0); Anion Gap 12 mmol/L (3-11); Blood Urea Nitrogen 65 mg/dL (8-24); Bun/Creatinine Ratio 20.1 (12.0-20.0); CO2, Blood 24 mmol/L (21-32); Calcium, Blood 9.4 mg/dL (8.5-10.1); Chloride, Blood 105 mmol/L (98-108); Creatinine, Blood 3.24 mg/dL (0.40-1.00); Glomerular Filtration Rate 15 (60-); Glucose, Blood 181 mg/dL (70-99); Magnesium, Blood 2.3 mg/dL (1.6-2.4); Phosphorus, Blood 4.4 mg/dL (2.5-4.9); Potassium, Blood 4.3 mmol/L (3.5-5.5); Sodium, Blood 137 mmol/L (136-145)
[2024-06-28] MEDS ORDERED: Anticoagulant Sod Citrate Soln 3 ML SYR INJ PRN (07:20)
[2024-06-28] MEDS ORDERED: Psyllium 1 EA Pack PO PRN (08:30)
--- NOTE | 2024-06-28 08:58 | NUR ---
MORNING NOTE THIS RN ASSUMED CARE AT APPROX 0715. PATIENT ALERT AND ORIENTED X4 - COMMUNICATING NEEDS EFFECTIVELY. VSS. TELEMETRY SHOWING SINUS ELICEO 50s PER ELECTROCARDIOGRAPH TECHNICIAN. SBP 140s. MAP >65. DENIES CHEST PAIN, PRESSURE. CURRENTLY ON 1L VIA NC, SATs >88% - HX OF COPD. ENCOURAGING INCREASED MOBILITY TODAY - PATIENT AGREEABLE TO A BEDBATH AND TRANSFER TO CHAIR WITH SLIDEBOARD FOLLOWING DIALYSIS. POD 3 LLE DISTAL FX REPAIR - DRESSINGS C/D/I. PLAN TO CHANGE PER MD ORDER FOLLOWING DIALYSIS. LLE IN IMMOBILIZER - DENIES PAIN. VOIDING. PATIENT CURRENTLY OUT OF ROOM FOR DIALYSIS.
--- NOTE | 2024-06-28 11:30 | NUR ---
PATIENT BACK FROM DIALYSIS. COMPLETE BEDBATH AND LINEN CHANGE PERFORMED. PATIENT REFUSED TRANSFER TO RECLINER CHAIR FOR LUNCH - EDUCATION PROVIDED. DRESSING TO LLE CHANGED PER ORDER - MINIMAL DRIED SEROSANGUINOUS DRAINAGE NOTED. IMMOBILIZER IN PLACE. CALL LIGHT IN REACH.
--- NOTE | 2024-06-28 16:55 | NUR ---
SHIFT SUMMARY SEE PREVIOUS NOTES - NO ACUTE CHANGES. VSS. HD COMPLETED THIS MORNING. BEDBATH AND LLE DRESSING CHANGE COMPLETED. MANAGING LLE PAIN PER EMAR WITH REPORTED RELIEF. PATIENT UP IN CHAIR WITH OCCUPATIONAL THERAPY THIS AFTERNOON - 1-2P ASSIST WITH SLIDER BOARD. ENCOURAGING INCREASED MOBILITY AND THERAPY EXERCISES THROUGHOUT DAY. CALL LIGHT IN REACH. WILL CONTINUE TO MONITOR AND REPORT TO ONCOMING RN.
[2024-06-29 03:48] VITALS: BP 151/56
--- NOTE | 2024-06-29 04:12 | NUR ---
SHIFT SUMMARY RADHA WAS ALERT AND FULLY ORIENTED ON ASSESMENT. PT HAD DIALYSIS ON DAYSHIFT. PT STATES PAIN IS SLIGHTLY WORSE TODAY. PT ABLE TO XFER WITH SLIDE BOARD AND 1-2 STAFF ASSIST. DRESSINGS TO L LEG C/D/I. IMMOBILIZER IN PLACE. PAIN MODERATELY WELL CONTROLLED. NO ACUTE EVENTS, NO CHANGES TO PT CONDITION TONIGHT.
[2024-06-29 05:52] LABS: BASOPHILS ABSOLUTE AUTO 0.09 K/mm3 (0.00-0.23); BASOPHILS PERCENT AUTO 1 % (0-2); EOSINOPHILS ABSOLUTE AUTO 1.12 K/mm3 (0.00-0.68); EOSINOPHILS PERCENT AUTO 10 % (0-6); Hematocrit 27.2 % (33.0-51.0); Hemoglobin 8.7 g/dL (11.5-16.0); IMMATURE GRAN ABSOLUTE AUTO 0.13 K/mm3 (0.00-0.10); IMMATURE GRAN PERCENT AUTO 1 % (0-1); LYMPHOCYTES ABSOLUTE AUTO 2.28 K/mm3 (0.84-5.20); LYMPHOCYTES PERCENT AUTO 20 % (21-46); MONOCYTES ABSOLUTE AUTO 1.05 K/mm3 (0.16-1.47); MONOCYTES PERCENT AUTO 9 % (4-13); Mean Corpuscular HGB 29.8 pg (26.0-34.0); Mean Corpuscular Volume 93 fL (80-100); Mean Platelet Volume 10.3 fL (9.1-12.4); NEUTROPHILS ABSOLUTE AUTO 6.69 K/mm3 (1.96-9.15); NEUTROPHILS PERCENT AUTO 59 % (41-73); Platelet Count 331 K/mm3 (150-400); RDW Coefficient Variation 14.3 % (11.7-14.2); RDW Standard Deviation 48.5 fL (35.1-46.3); Red Blood Cell Count 2.92 M/mm3 (3.80-5.20); White Blood Cell Count 11.36 K/mm3 (4.00-11.30)
[2024-06-29 06:28] LABS: Albumin, Blood 3.1 g/dL (3.4-5.0); Albumin/Globulin Ratio 0.9 (0.8-1.8); Bilirubin, Total 0.7 mg/dL (0.1-1.0); Bun/Creatinine Ratio 15.7 (12.0-20.0); Creatinine, Blood 2.86 mg/dL (0.40-1.00); Globulin, Blood 3.5 g/dL (2.2-4.0); Magnesium, Blood 2.2 mg/dL (1.6-2.4); Phosphorus, Blood 3.1 mg/dL (2.5-4.9); Potassium, Blood 3.8 mmol/L (3.5-5.5); Total Protein, Blood 6.6 g/dL (6.4-8.2)
[2024-06-29 07:29] VITALS: BP 153/66
[2024-06-29 09:42] VITALS: BP 146/59
[2024-06-29 16:17] VITALS: BP 142/54
--- NOTE | 2024-06-29 16:52 | NUR ---
SHIFT SUMMARY PT IS POD4 FOR L FEMUR REPAIR. DRESSING C/D/I, IMMOBILIZER IN PLACE, CIRCULATION INTACT TO BLE. PT HAVING CONTINENT VOIDS, TRANSFERING TO BED/CHAIR W/ SLIDE BOARD 1-2 ASST. TOLERATING REG DIET, DENIES N/V, PAIN TOLERABLE W/ PAIN MEDS PER EMAR. VSS, PT IS BRADYCARDIC 57-60 AT TIMES WHILE RESTING. PT CURRENTLY REQUIRING 1LNC TO KEEP O2 SATS >90%, CONT BIOX IN PLACE. DIALYSIS CATH INTACT. PT RESTING IN BED W/ CALL LIGHT IN REACH.
[2024-06-29 19:17] VITALS: BP 137/59
[2024-06-30] VITALS (18 sets, daily range): BP systolic 79–177; BP diastolic 40–81
[2024-06-30 04:46] LABS: Hematocrit 28.4 % (33.0-51.0)
[2024-06-30 05:05] LABS: Magnesium, Blood 2.1 mg/dL (1.6-2.4)
[2024-06-30 05:06] LABS: Albumin, Blood 3.2 g/dL (3.4-5.0); Anion Gap 9 mmol/L (3-11); Blood Urea Nitrogen 48 mg/dL (8-24); CO2, Blood 26 mmol/L (21-32); Calcium, Blood 9.7 mg/dL (8.5-10.1); Chloride, Blood 108 mmol/L (98-108); Creatinine, Blood 2.83 mg/dL (0.40-1.00); Glomerular Filtration Rate 18 (60-); Glucose, Blood 135 mg/dL (70-99); Phosphorus, Blood 3.6 mg/dL (2.5-4.9); Potassium, Blood 3.9 mmol/L (3.5-5.5); Sodium, Blood 139 mmol/L (136-145)
--- NOTE | 2024-06-30 05:20 | NUR ---
SHIFT SUMMARY PT HAS RESTED T/O THE NIGHT. PAIN MANAGED WITH MEDS PER EMAR. SURGICAL SITE WNL, WITH IMMOBILIZER IN PLACE. PT A/OX4 AND MAKES NEEDS KNOWN. VITALS STABLE, AND PLAN OF CARE REMAINS UNCHANGED.
[2024-06-30] MEDS ORDERED: Anticoagulant Sod Citrate Soln 3 ML SYR INJ PRN (08:10)
[2024-06-30] MEDS ORDERED: Omeprazole 20 MG CapCR PO SCH (09:25)
--- NOTE | 2024-06-30 11:20 | NUR ---
PT TO DIALYSIS
[2024-06-30] MEDS ORDERED: Insulin Glargine-Yfgn 100 Unit/mL 3 ML SYR SC ONE (14:00)
--- NOTE | 2024-06-30 16:15 | NUR ---
SHIFT SUMMARY PT IS POD5 FOR L FEMUR FIXATION. DRESSINGS C/D/I, IMMOBILIZER IN PLACE PER ORDERS. CIRCULATION INTACT TO BLE. VSS. PT'S PAIN WELL CONTROLLED W/ PAIN MEDS PER EMAR. PT TOLERATING REG DIET W/O N/V. PT WANTED TO REST IN BED TODAY AFTER DIALYSIS. CALL LIGHT IN REACH.
--- NOTE | 2024-07-01 05:23 | NUR ---
SHIFT SUMMARY POD6 L FEMUR FX. AQUACEL TO INCISION SITES X4, THIS RN CHANGED DRESSINGS AND CLEANED SITES WITH PEROXIDE. IROM BRACE IN PLACE. DRESSING ARE C/D/I. PATIENT IS AOX4. CALLS APPROP. USING CPAP AT NIGHT WITH 2L O2 BLEED IN. 2-3L NC DURING DAY. CONT. BIOX ON. VSS. DENIES NEED FOR PAIN MEDICATION THIS SHIFT. SLIDE BOARD TRANSFER TO BSC/CHAIR. AWAITING SNF PLACEMENT.
[2024-07-01 05:45] VITALS: BP 141/53
[2024-07-01 05:54] LABS: Hematocrit 28.3 % (33.0-51.0); Hemoglobin 8.9 g/dL (11.5-16.0)
[2024-07-01 06:34] LABS: Albumin, Blood 3.5 g/dL (3.4-5.0); Anion Gap 11 mmol/L (3-11); Blood Urea Nitrogen 37 mg/dL (8-24); Bun/Creatinine Ratio 14.8 (12.0-20.0); CO2, Blood 27 mmol/L (21-32); Calcium, Blood 9.4 mg/dL (8.5-10.1); Chloride, Blood 108 mmol/L (98-108); Glomerular Filtration Rate 21 (60-); Glucose, Blood 181 mg/dL (70-99); Magnesium, Blood 2.1 mg/dL (1.6-2.4); Phosphorus, Blood 3.4 mg/dL (2.5-4.9); Potassium, Blood 3.7 mmol/L (3.5-5.5); Sodium, Blood 142 mmol/L (136-145)
[2024-07-01 07:42] VITALS: BP 91/79
[2024-07-01 07:43] VITALS: BP 132/51
[2024-07-01] MEDS ORDERED: Insulin Glargine-Yfgn 100 Unit/mL 3 ML SYR SC SCH (09:00)
[2024-07-01 15:19] VITALS: BP 109/59
--- NOTE | 2024-07-01 16:08 | NUR ---
SHIFT SUMMARY POD 6 ORIF L FEMUR AQUACEL'S REMAIN CDI, BRACE ON T/O SHIFT. PT UP IN CHAIR DURING MOST OF SHIFT. WORKED WELL WITH THERAPY. REPORTS PAIN WELL CONTROLLED DURING SHIFT. TOLERATING DIET WELL. PLAN IS TO DISCHARGE TO SNF.
[2024-07-01 19:28] VITALS: BP 141/53
[2024-07-02] VITALS (16 sets, daily range): BP systolic 82–157; BP diastolic 46–73
--- NOTE | 2024-07-02 04:39 | NUR ---
SHIFT SUMMARY; PATIENT SLEPT IN LONG INTERVALS, CPAP ON WITH O2 BLEED IN. REFUSED COLACE, CBG 161 @ HS, NO INSULIN NEEDED. GIVEN PRN TYLENOL AND OXY AT HS. VSS.
[2024-07-02 05:29] LABS: BASOPHILS ABSOLUTE AUTO 0.09 K/mm3 (0.00-0.23); BASOPHILS PERCENT AUTO 1 % (0-2); EOSINOPHILS ABSOLUTE AUTO 1.24 K/mm3 (0.00-0.68); EOSINOPHILS PERCENT AUTO 10 % (0-6); Hematocrit 28.7 % (33.0-51.0); Hemoglobin 8.9 g/dL (11.5-16.0); IMMATURE GRAN ABSOLUTE AUTO 0.22 K/mm3 (0.00-0.10); IMMATURE GRAN PERCENT AUTO 2 % (0-1); LYMPHOCYTES ABSOLUTE AUTO 2.56 K/mm3 (0.84-5.20); LYMPHOCYTES PERCENT AUTO 20 % (21-46); MONOCYTES ABSOLUTE AUTO 1.04 K/mm3 (0.16-1.47); MONOCYTES PERCENT AUTO 8 % (4-13); Mean Corpuscular HGB 29.5 pg (26.0-34.0); Mean Corpuscular Volume 95 fL (80-100); Mean Platelet Volume 10.3 fL (9.1-12.4); NEUTROPHILS ABSOLUTE AUTO 7.89 K/mm3 (1.96-9.15); NEUTROPHILS PERCENT AUTO 61 % (41-73); Platelet Count 356 K/mm3 (150-400); RDW Coefficient Variation 15.1 % (11.7-14.2); RDW Standard Deviation 51.6 fL (35.1-46.3); Red Blood Cell Count 3.02 M/mm3 (3.80-5.20); White Blood Cell Count 13.04 K/mm3 (4.00-11.30)
[2024-07-02 05:50] LABS: Albumin, Blood 3.5 g/dL (3.4-5.0); Anion Gap 10 mmol/L (3-11); Blood Urea Nitrogen 51 mg/dL (8-24); Bun/Creatinine Ratio 15.7 (12.0-20.0); CO2, Blood 27 mmol/L (21-32); Calcium, Blood 9.4 mg/dL (8.5-10.1); Chloride, Blood 107 mmol/L (98-108); Creatinine, Blood 3.25 mg/dL (0.40-1.00); Glomerular Filtration Rate 15 (60-); Glucose, Blood 197 mg/dL (70-99); Phosphorus, Blood 3.7 mg/dL (2.5-4.9); Sodium, Blood 140 mmol/L (136-145)
[2024-07-02] MEDS ORDERED: Anticoagulant Sod Citrate Soln 3 ML SYR INJ PRN (07:10)
--- NOTE | 2024-07-02 16:43 | NUR ---
SHIFT SUMMARY POD 7 ORIF DISTAL FEMUR PT UP TO CHAIR WITH SLIDE BOARD. PAIN WELL CONTROLLED DURING SHIFT. TOLERATING DIET WELL. PT HAD DIALYSIS TODAY. CALLING APPROPRIATLY, CURRENTLY WORKING ON SNF FOR DISCHARGE. DRESSINGS REMAINS CDI, BRACE REMAINS IN PLACE
[2024-07-03 05:16] LABS: BASOPHILS ABSOLUTE AUTO 0.07 K/mm3 (0.00-0.23); BASOPHILS PERCENT AUTO 1 % (0-2); EOSINOPHILS ABSOLUTE AUTO 1.01 K/mm3 (0.00-0.68); EOSINOPHILS PERCENT AUTO 8 % (0-6); Hematocrit 28.2 % (33.0-51.0); Hemoglobin 8.9 g/dL (11.5-16.0); IMMATURE GRAN PERCENT AUTO 2 % (0-1); LYMPHOCYTES PERCENT AUTO 20 % (21-46); MONOCYTES ABSOLUTE AUTO 1.23 K/mm3 (0.16-1.47); MONOCYTES PERCENT AUTO 9 % (4-13); Mean Corpuscular HGB 29.6 pg (26.0-34.0); Mean Corpuscular HGB Conc 31.6 g/dL (31.5-36.5); Mean Corpuscular Volume 94 fL (80-100); Mean Platelet Volume 10.3 fL (9.1-12.4); NEUTROPHILS ABSOLUTE AUTO 8.18 K/mm3 (1.96-9.15); NEUTROPHILS PERCENT AUTO 61 % (41-73); Platelet Count 330 K/mm3 (150-400); RDW Standard Deviation 51.2 fL (35.1-46.3); Red Blood Cell Count 3.01 M/mm3 (3.80-5.20); White Blood Cell Count 13.39 K/mm3 (4.00-11.30)
--- NOTE | 2024-07-03 05:17 | NUR ---
SHIFT SUMMARY PT HAS RESTED T/O THE NIGHT. PT UP IN CHAIR AT THE BEGINNING OF THE SHIFT. 2 PA WITH SLIDER BACK TO BED. SURGICAL SITE WNL, WITH IMMOBILIZER IN PLACE. PT USES CPAP T/O THE NIGHT. PAIN MANAGED PER EMAR. PLAN OF CARE REMAINS UNCHANGED. BED IN LOWEST POSITION, CALL LIGHT WITHIN REACH.
[2024-07-03 05:24] VITALS: BP 164/62
[2024-07-03 05:38] LABS: Albumin, Blood 3.3 g/dL (3.4-5.0); Anion Gap 6 mmol/L (3-11); Blood Urea Nitrogen 30 mg/dL (8-24); Bun/Creatinine Ratio 13.7 (12.0-20.0); CO2, Blood 31 mmol/L (21-32); Calcium, Blood 9.3 mg/dL (8.5-10.1); Chloride, Blood 108 mmol/L (98-108); Creatinine, Blood 2.19 mg/dL (0.40-1.00); Glomerular Filtration Rate 25 (60-); Glucose, Blood 121 mg/dL (70-99); Magnesium, Blood 1.9 mg/dL (1.6-2.4); Phosphorus, Blood 3.3 mg/dL (2.5-4.9); Potassium, Blood 3.4 mmol/L (3.5-5.5); Sodium, Blood 142 mmol/L (136-145)
[2024-07-03] MEDS ORDERED: Potassium Chloride 10 Meq Tablet SA PO ONE (06:15)
[2024-07-03 07:06] VITALS: BP 139/47
--- NOTE | 2024-07-03 08:45 | NUR ---
INITIAL ASSESSMENT: Patient is awake sitting up in bed after eating breakfast, she is alert and oriented x4. She denies pain at this time. HRR, she is bradycardic in the mid 50s, am cardiac meds held at this time. Will reassess. LS DIM in the bases, biox 88-97% on RA. Patient given IS to encourage deep breathing. Cont biox at the bedside. BT+. Patient is able to slide using a slider board to the BSC. PPP. She has 3 aquacel dressings to her left knee/thigh area. Immoblizer in place, secure. AM meds given at this time. She denies other needs. Call light in reach.
[2024-07-03] MEDS ORDERED: Ondansetron 4 MG TAB PO PRN (10:33)
[2024-07-03 14:29] VITALS: BP 167/70
[2024-07-03 17:24] VITALS: BP 168/71
--- NOTE | 2024-07-03 17:46 | NUR ---
Summary: Patient has been alert and oriented T/O the shift. She has been OOB to the chair for the majority of the shift. She was medicated with Tylenol for pain once. HR, she has been bradycardic for the majority of the shift thus her coreg was held, this RN was able to give Coreg this evening. LS DIM in the bases, biox was fluctuating from 85-97 on RA, patient was given an IS and placed on 1l 02 via NC. BT+, small BM today. She is able to transfer with the slider board to the BS. Left leg with 3 aquacel dressings CDI, leg immoblizer in place. No acute changes this shift, will report to oncoming RN.
[2024-07-03 19:29] VITALS: BP 146/57
[2024-07-04] VITALS (19 sets, daily range): BP systolic 81–173; BP diastolic 43–90
--- NOTE | 2024-07-04 04:43 | NUR ---
SHIFT SUMMARY PT HAS RESTED T/O THE NIGHT. USED SLIDER TO GET FROM RECLINER TO BSC TO BED. PT DENIES PAIN. SURIGCAL SITE WNL, IMMBOLIZER IN PLACE. VITALS STABLE. PLAN OF CARE REMAINS UNCHANGED. BED IN LOWEST POSITION, CALL LIGHT WITHIN REACH.
[2024-07-04 05:23] LABS: BASOPHILS ABSOLUTE AUTO 0.07 K/mm3 (0.00-0.23); BASOPHILS PERCENT AUTO 1 % (0-2); EOSINOPHILS ABSOLUTE AUTO 0.93 K/mm3 (0.00-0.68); EOSINOPHILS PERCENT AUTO 9 % (0-6); Hematocrit 28.4 % (33.0-51.0); Hemoglobin 8.9 g/dL (11.5-16.0); IMMATURE GRAN ABSOLUTE AUTO 0.16 K/mm3 (0.00-0.10); IMMATURE GRAN PERCENT AUTO 2 % (0-1); LYMPHOCYTES ABSOLUTE AUTO 1.82 K/mm3 (0.84-5.20); LYMPHOCYTES PERCENT AUTO 17 % (21-46); MONOCYTES ABSOLUTE AUTO 0.96 K/mm3 (0.16-1.47); MONOCYTES PERCENT AUTO 9 % (4-13); Mean Corpuscular HGB 29.3 pg (26.0-34.0); Mean Corpuscular HGB Conc 31.3 g/dL (31.5-36.5); Mean Corpuscular Volume 93 fL (80-100); Mean Platelet Volume 10.3 fL (9.1-12.4); NEUTROPHILS ABSOLUTE AUTO 7.03 K/mm3 (1.96-9.15); NEUTROPHILS PERCENT AUTO 64 % (41-73); Platelet Count 333 K/mm3 (150-400); RDW Standard Deviation 51.6 fL (35.1-46.3); Red Blood Cell Count 3.04 M/mm3 (3.80-5.20); White Blood Cell Count 10.97 K/mm3 (4.00-11.30)
[2024-07-04 07:08] LABS: Magnesium, Blood 1.9 mg/dL (1.6-2.4)
[2024-07-04 07:14] LABS: Alanine Aminotransfer (ALT/SGP 13 U/L (12-78); Albumin, Blood 3.3 g/dL (3.4-5.0); Alk Phos 131 U/L (50-136); Anion Gap 10 mmol/L (3-11); Aspartate Aminotrans (AST/SGOT 13 U/L (12-37); Bilirubin, Total 0.8 mg/dL (0.1-1.0); Blood Urea Nitrogen 41 mg/dL (8-24); Bun/Creatinine Ratio 14.5 (12.0-20.0); CO2, Blood 27 mmol/L (21-32); Calcium, Blood 9.4 mg/dL (8.5-10.1); Chloride, Blood 105 mmol/L (98-108); Creatinine, Blood 2.83 mg/dL (0.40-1.00); Globulin, Blood 3.4 g/dL (2.2-4.0); Glomerular Filtration Rate 18 (60-); Glucose, Blood 165 mg/dL (70-99); Phosphorus, Blood 3.8 mg/dL (2.5-4.9); Potassium, Blood 3.7 mmol/L (3.5-5.5); Sodium, Blood 138 mmol/L (136-145); Total Protein, Blood 6.7 g/dL (6.4-8.2)
[2024-07-04] MEDS ORDERED: Anticoagulant Sod Citrate Soln 3 ML SYR INJ PRN (07:35)
--- NOTE | 2024-07-04 09:33 | NUR ---
PT TAKEN TO DIALYSIS AT APPROXIMATELY 0815.
--- NOTE | 2024-07-04 10:58 | NUR ---
PT BACK TO ROOM 215 FROM DIALYSIS.
--- NOTE | 2024-07-04 18:11 | NUR ---
L KNEE DRESSINGS CHANGED. CLEAN AQUACEL DRESSINGS PLACED.
--- NOTE | 2024-07-04 19:41 | NUR ---
SHIFT SUMMARY PT IS POD#9. PT DENIES PAIN. PT IS A 2 ASSIST FOR TRANSFERS USING THE SLIDE BOARD. FAMILY VISITED THIS EVENING, PT RESPONDED WELL. BEDSIDE REPORT GIVEN TO TAI PHAN.
[2024-07-05 04:40] VITALS: BP 155/65
[2024-07-05 04:59] LABS: Hematocrit 29.7 % (33.0-51.0); Hemoglobin 9.3 g/dL (11.5-16.0)
[2024-07-05 05:27] LABS: Albumin, Blood 3.4 g/dL (3.4-5.0); Anion Gap 8 mmol/L (3-11); Blood Urea Nitrogen 26 mg/dL (8-24); Bun/Creatinine Ratio 9.8 (12.0-20.0); CO2, Blood 29 mmol/L (21-32); Calcium, Blood 9.6 mg/dL (8.5-10.1); Chloride, Blood 107 mmol/L (98-108); Creatinine, Blood 2.64 mg/dL (0.40-1.00); Glomerular Filtration Rate 20 (60-); Glucose, Blood 235 mg/dL (70-99); Magnesium, Blood 1.9 mg/dL (1.6-2.4); Potassium, Blood 3.8 mmol/L (3.5-5.5); Sodium, Blood 140 mmol/L (136-145)
[2024-07-05 07:15] VITALS: BP 155/60
--- NOTE | 2024-07-05 08:37 | NUR ---
SHIFT SUMMARY; PATEINT WOULD HAVE SLEPT IN LONG INTERVAL, EXCEPT THE PATIENT NEXT DOOR WAS SCREAMING AT TIMES. WITH MUCH COMMOTION ON AND OFF. GIVEN PRN OXY AND TYLELNOL
--- NOTE | 2024-07-05 10:24 | NUR ---
DR. WELLS NOTIFIED THAT PT'S COREG WAS HELD R/T ORDER TO HOLD FOR HR LESS THAN 60. DR. WELLS ORDERED TO HOLD COREG AT THIS TIME BUT HE MAY PLACE NEW ORDERS AFTER HE ROUNDS ON PT.
[2024-07-05 15:01] VITALS: BP 126/49
--- NOTE | 2024-07-05 18:34 | NUR ---
SHIFT SUMMARY PT IS POD#10. PAIN HAS BEEN MINIMAL. PT IS A 2 ASSIST FOR TRANSFERS. VSS.
[2024-07-05 19:45] VITALS: BP 173/61
[2024-07-06] VITALS (12 sets, daily range): BP systolic 89–176; BP diastolic 51–71
[2024-07-06] MEDS ORDERED: HydrALAZINE HCl 20 MG / ML 1ML Vial IV ONE (02:05)
--- NOTE | 2024-07-06 02:09 | NUR ---
PROVIDER UPDATE PROVIDER NOTIFIED OF PT'S ELEVATED BP TREND, WITH MOST RECENT 175/67 AND PT'S PLAN OF NEEDING HEMODAILYSIS TOMORROW. ORDER FOR HYDRALAZINE 10MG IV ONE TIME DOSE OBTAINED. WILL ADMINISTER ORDERED.
--- NOTE | 2024-07-06 04:31 | NUR ---
SHIFT SUMMARY POD 11 S/P ORIF. BRACE IN PLACE ORDERED. PT MEDICATED X 1 FOR PAIN. ELEVATED BP AT START OF SHIFT, PRN REQUESTED AND THEN HELD FOR CLINICAL JUDGEMENT PRESSURES WERE TRENDING DOWN AND HR UNDER 60. PT HAS DIALYSIS TODAY AND HAS HX OF HYPOTENSION POST TREATMENT. MEDICATED X 1 FOR PAIN. PT APPEARS TO HAVE RESTED WELL T/O NIGHT WITH CPAP IN PLACE. SPO2 ABOVE 95% PER CONT BIOX. PLAN FOR DAILYSIS AND POSSIBLE D/C TO SNF TODAY. PT CURRENTLY RESTING IN BED WITH EYES CLOSED, CALL LIGHT IN REACH AND BED ALARM ON. RESP EVEN AND UNLABORED. WILL GIVE REPORT TO ONCOMING RN.
[2024-07-06] MEDS ORDERED: Anticoagulant Sod Citrate Soln 3 ML SYR INJ PRN (07:20)
--- NOTE | 2024-07-06 11:12 | NUR ---
MORNING NOTE THIS RN ASSUMED CARE AT APPROX 0715. PATIENT ALERT AND ORIENTED X4. COMMUNICATING NEEDS EFFECTIVELY. CONCERN FOR HTN OVERNIGHT, SBP 150s THIS MORNING. HD SCHEDULED AND COMPLETED THIS MORNING. SCHEDULED HTN MEDICATIONS HELD DUE TO HYPOTENSION POST HD - SBP 120s. MAP >65. ON ROOM AIR WHILE AWAKE, SATs >90%. RR EVEN, UNLABORED. COMPLIANT WITH CPAP USE WITH SLEEP. UP TO BSC, CHAIR WITH 1P STANDBY ASSIST FWW. POD 11 L ORIF - IMMOBILIZER IN PLACE, AQUACEL DXs C/D/I. DC TO SNF TODAY AT APPROX 1315. PATIENT CHANGED INTO PERSONAL CLOTHING FOR DC. CALL LIGHT IN REACH.
[2024-07-06 11:25] LABS: Hematocrit 30.8 % (33.0-51.0); Hemoglobin 9.7 g/dL (11.5-16.0)
--- NOTE | 2024-07-06 13:27 | NUR ---
DISCHARGE NOTE NO ACUTE CHANGES SINCE PREVIOUS NOTE. PATIENT ABLE TO STAND AND PIVOT TRANSFER WITH SBA FWW GB TO WHEELCHAIR FOR TRANSPORT TO [facility]. PERSONAL BELONGINGS WITH PATIENT. PATIENT TRANSFERRED OFF UNIT VIA TRANSPORT SERVICES AT APPROX 1310. REPORT GIVEN TO ACCEPTING RN AT [facility].
== END 2024-07-06 13:14 | DRG 480 ==
LOC: ER 13:25 → SURS 13:26 → ERHOLD 13:26 → SURS 13:27
PROVIDERS: Family Medicine; Internal Medicine Nephrology; Orthopaedic Surgery; Student in an Organized Health Care Education/Training Program; ADMIT Student in an Organized Health Care Education/Training Program
PROC: 0QSC06Z Reposition Left Lower Femur with Intramedullary Internal Fixation Device, Open Approach (ICD-10-PCS; principal; 2024-06-25 13:00)
PROC: 5A1D70Z Performance of Urinary Filtration, Intermittent, Less than 6 Hours Per Day (ICD-10-PCS; 2024-06-26)
DX: S72.302A Unspecified fracture of shaft of left femur, initial encounter for closed fracture (principal); N18.6 End stage renal disease; M97.12XA Periprosthetic fracture around internal prosthetic left knee joint, initial encounter; I13.2 Hypertensive heart and chronic kidney disease with heart failure and with stage 5 chronic kidney disease, or end stage renal disease; N25.81 Secondary hyperparathyroidism of renal origin; E87.1 Hypo-osmolality and hyponatremia; I50.32 Chronic diastolic (congestive) heart failure; E11.22 Type 2 diabetes mellitus with diabetic chronic kidney disease; E78.5 Hyperlipidemia, unspecified; E11.43 Type 2 diabetes mellitus with diabetic autonomic (poly)neuropathy; K31.84 Gastroparesis; G25.81 Restless legs syndrome; J44.9 Chronic obstructive pulmonary disease, unspecified; Z96.632 Presence of left artificial wrist joint; Z96.661 Presence of right artificial ankle joint; Z96.641 Presence of right artificial hip joint; I25.10 Atherosclerotic heart disease of native coronary artery without angina pectoris; I87.2 Venous insufficiency (chronic) (peripheral); E11.51 Type 2 diabetes mellitus with diabetic peripheral angiopathy without gangrene; D63.1 Anemia in chronic kidney disease; E87.6 Hypokalemia; E87.5 Hyperkalemia; I27.20 Pulmonary hypertension, unspecified; F32.9 Major depressive disorder, single episode, unspecified; Z88.5 Allergy status to narcotic agent; Z91.018 Allergy to other foods; Z88.8 Allergy status to other drugs, medicaments and biological substances; Z79.4 Long term (current) use of insulin; Z79.82 Long term (current) use of aspirin; Z79.899 Other long term (current) drug therapy; Z79.02 Long term (current) use of antithrombotics/antiplatelets; Z99.2 Dependence on renal dialysis; Z87.891 Personal history of nicotine dependence; Z95.1 Presence of aortocoronary bypass graft; Z98.890 Other specified postprocedural states; Y92.009 Unspecified place in unspecified non-institutional (private) residence as the place of occurrence of the external cause; Z90.89 Acquired absence of other organs; W18.30XA Fall on same level, unspecified, initial encounter
CPT/HCPCS: 29505; 36415; 70450; 73502; 73560-LT; 73562-LT; 80053; 80069; 82947; 83036; 83735; 84100; 85014; 85018; 85025; 85610; 85730; 86850; 86900; 86901; 93306; 94762; 96374-59; 96375-59; 96376; 96376-59; 97110; 97162; 97165; 97530; 97535; 99285-25; A9270; C1713; C1769; G0378; J0690; J0881; J1100; J1171; J1644; J1815; J1885; J2405; J2704; J3010; J3370; J7030; J7050; J7120

== ENCOUNTER 2024-07-19 18:05 | Observation (INO) | payer OTHER ==
[~2024-07-19] VITALS: Ht 157.5 cm; Wt 71.0 kg
[~2024-07-19 18:05] MED LIST changes: +BUPROPION XL150 M1 PO; +DERMACINRX FOL1 EAC2 PO; +ESCI10 PO; +MULTI-VITAMIN1 EAC2 PO; +Mirapex0.5 MG PO; +VITAMIN B121000 MCG PO; +[UNRECOGNIZED DRUG - CODE] PO
[2024-07-19 19:31] LABS: BASOPHILS ABSOLUTE AUTO 0.09 K/mm3 (0.00-0.23); BASOPHILS PERCENT AUTO 1 % (0-2); EOSINOPHILS PERCENT AUTO 0 % (0-6); Hematocrit 39.9 % (33.0-51.0); Hemoglobin 13.5 g/dL (11.5-16.0); IMMATURE GRAN ABSOLUTE AUTO 0.12 K/mm3 (0.00-0.10); IMMATURE GRAN PERCENT AUTO 1 % (0-1); LYMPHOCYTES ABSOLUTE AUTO 0.51 K/mm3 (0.84-5.20); LYMPHOCYTES PERCENT AUTO 3 % (21-46); MONOCYTES ABSOLUTE AUTO 0.98 K/mm3 (0.16-1.47); MONOCYTES PERCENT AUTO 5 % (4-13); Mean Corpuscular HGB 29.9 pg (26.0-34.0); Mean Corpuscular HGB Conc 33.8 g/dL (31.5-36.5); Mean Corpuscular Volume 89 fL (80-100); Mean Platelet Volume 9.7 fL (9.1-12.4); NEUTROPHILS ABSOLUTE AUTO 16.33 K/mm3 (1.96-9.15); NEUTROPHILS PERCENT AUTO 91 % (41-73); Platelet Count 479 K/mm3 (150-400); RDW Standard Deviation 51.7 fL (35.1-46.3); Red Blood Cell Count 4.51 M/mm3 (3.80-5.20); White Blood Cell Count 18.03 K/mm3 (4.00-11.30)
[2024-07-19 20:15] LABS: Albumin, Blood 4.6 g/dL (3.4-5.0); Albumin/Globulin Ratio 1.2 (0.8-1.8); Bilirubin, Total 1.4 mg/dL (0.1-1.0); Bun/Creatinine Ratio 13.7 (12.0-20.0); Calcium, Blood 10.7 mg/dL (8.5-10.1); Creatinine, Blood 2.27 mg/dL (0.40-1.00); Globulin, Blood 3.9 g/dL (2.2-4.0); Potassium, Blood 2.7 mmol/L (3.5-5.5); Total Protein, Blood 8.5 g/dL (6.4-8.2)
[2024-07-20] MEDS ORDERED: NS 1,000 ML IV SCH (00:25)
[2024-07-20] MEDS ORDERED: Metoclopramide HCl 5MG / ML 2ML Vial IV ONE (00:25)
[2024-07-20 01:18] LABS: Base Excess Venous 5.1 mmol/L; Bicarbonate Venous 28.2 mmol/L (24.0-30.0); PCO2 Venous 39.8 mmHg (38-42); pH Blood Venous 7.47 (7.34-7.37)
[2024-07-20 02:07] LABS: Source, Urine Clean Catch
[2024-07-20 02:10] LABS: Bilirubin, Urine Neg (Neg); Blood, Urine 1+ (Neg); Glucose Qualitative, Urine 4+ (Neg); Ketones, Urine 2+ (Neg); Leukocyte Esterase, Urine Neg (Neg); Nitrite, Urine Neg (Neg); Protein, Urine 4+ (Neg); Specific Gravity, Urine 1.015 (1.003-1.022); Urobilinogen, Urine NORM (Normal)
[2024-07-20 02:26] LABS: Appearance, Urine Clear (Clear); Color, Urine Yellow (P-Yellow)
[2024-07-20 02:27] LABS: Bacteria Few /hpf; Red Blood Cells, Urine 0-2 /hpf (0-2); Squamous Epithelial Cells Mod /hpf (Few); White Blood Cells, Urine 0-2 /hpf (0-5)
[2024-07-20] MEDS ORDERED: Ondansetron HCl 2 MG / ML 2ML Vial IV ONE (03:00)
[2024-07-20] MEDS ORDERED: Metoclopramide HCl 5MG / ML 2ML Vial IV PRN (05:55)
[2024-07-20] MEDS ORDERED: Magnesium Hydroxide Conc 10 ML UDC PO PRN (05:55)
[2024-07-20] MEDS ORDERED: FLU VACC TS2024-25(6MOS UP)/PF 45 MCG/0.5 ML SYRINGE IM SCH (06:00)
[2024-07-20] MEDS ORDERED: Potassium Chloride 20 MEQ TabCR PO ONE (06:00)
[2024-07-20 07:13] LABS: Magnesium, Blood 1.9 mg/dL (1.6-2.4); Phosphorus, Blood 4.4 mg/dL (2.5-4.9)
[2024-07-20] MEDS ORDERED: Insulin Human Lispro 100 Units/ML 3ML Syringe SC SCH (07:30)
[2024-07-20] MEDS ORDERED: Lactated Ringer's 1,000 ML IV SCH (07:30)
[2024-07-20] MEDS ORDERED: Heparin Sodium 5000 Units/ML 1ML MDV SC SCH (08:00)
[2024-07-20] MEDS ORDERED: Insulin Glargine-Yfgn 100 Unit/mL 3 ML SYR SC SCH (09:00)
[2024-07-20 10:24] LABS: Albumin, Blood 4.1 g/dL (3.4-5.0); Anion Gap 16 mmol/L (3-11); Blood Urea Nitrogen 33 mg/dL (8-24); CO2, Blood 24 mmol/L (21-32); Calcium, Blood 9.7 mg/dL (8.5-10.1); Chloride, Blood 100 mmol/L (98-108); Creatinine, Blood 2.36 mg/dL (0.40-1.00); Glomerular Filtration Rate 22 (60-); Glucose, Blood 260 mg/dL (70-99); Phosphorus, Blood 4.5 mg/dL (2.5-4.9); Potassium, Blood 3.4 mmol/L (3.5-5.5); Sodium, Blood 137 mmol/L (136-145)
[2024-07-20] MEDS ORDERED: Potassium Chloride 10 Meq Tablet SA PO ONE (11:35)
[2024-07-20 13:59] VITALS: BP 138/66
[2024-07-20] MEDS ORDERED: Ondansetron 4 MG TAB PO PRN (15:30)
[2024-07-20] MEDS ORDERED: Ondansetron HCl 2 MG / ML 2ML Vial IV PRN (15:45)
--- NOTE | 2024-07-20 18:35 | NUR ---
ADMISSION/SHIFT NOTE: PATIENT ARRIVES TO ROOM AT 1326 VIA GURNEY FROM ED FOR DX'S OF DIABETIC GASTROPARESIS. PATIENT TRANSFERRED TO BED c 3 MAX ASSIST USING SLIDER SHEET. PATIENT ADMISSION, MEDRIC AND SKIN ASSESSMENT c 2 RN'S VERIFIED COMPLETED. PATIENT ORIENTATED TO ROOM AND CALL SYSTEM. PATIENT A/OX4, ANSWER TO QUESTIONS APPROPRIATELY AND ABLE TO MAKE NEEDS KNOWN. PATIENT DENIES CP/PRESSURE, SOB AND DIZZINESS. PATIENT ON TELE, SR HR IN THE 70'S BPM c 0.51 QTC, DR. MYERS IS AWARE. PATIENT MEDICATED FOR NAUSEA PER EMAR c MOD EFFECT. PATIENT ON RA DURING THE DAY, BUT USES CPAP AT HS c 6L O2 BLEED IN. PATIENT HAS L LEG IMMOBILIZER IN PLACED, NWB TO L LEG. PATIENT INCONTINENT OF BLADDER, ATTENDS PLACED AND CHANGED PRN. PATIENT ON CONTACT ISOLATION FOR HX OF ESBL IN URINE BACK IN 2021. SCD'S TO R LEG IN PLACED. BED ALARM ON FOR SAFETY. CALL LIGHT IN REACH.
[2024-07-20] MEDS ORDERED: Ondansetron 4 MG SoluTab MM PRN (18:40)
[2024-07-20 20:48] VITALS: BP 173/78
[2024-07-20] MEDS ORDERED: HydrALAZINE HCl 50 MG Tab PO SCH (21:00)
[2024-07-20] MEDS ORDERED: Metoclopramide HCl 10 MG Tab PO SCH (21:00)
[2024-07-20] MEDS ORDERED: Pramipexole DI-HCL 1 Mg Tab PO SCH (21:00)
[2024-07-20] MEDS ORDERED: Carvedilol 25 MG Tab PO SCH (21:00)
[2024-07-20] MEDS ORDERED: Pregabalin 50 MG Capsule PO SCH (21:00)
[2024-07-20] MEDS ORDERED: Folic Acid 1 MG TAB PO SCH (21:00)
[2024-07-21] VITALS (17 sets, daily range): BP systolic 117–187; BP diastolic 64–92
[2024-07-21 05:18] LABS: BASOPHILS ABSOLUTE AUTO 0.03 K/mm3 (0.00-0.23); BASOPHILS PERCENT AUTO 0 % (0-2); EOSINOPHILS PERCENT AUTO 0 % (0-6); Hematocrit 42.4 % (33.0-51.0); Hemoglobin 13.6 g/dL (11.5-16.0); IMMATURE GRAN PERCENT AUTO 1 % (0-1); LYMPHOCYTES ABSOLUTE AUTO 0.64 K/mm3 (0.84-5.20); LYMPHOCYTES PERCENT AUTO 5 % (21-46); MONOCYTES ABSOLUTE AUTO 0.92 K/mm3 (0.16-1.47); MONOCYTES PERCENT AUTO 6 % (4-13); Mean Corpuscular HGB 29.3 pg (26.0-34.0); Mean Corpuscular HGB Conc 32.1 g/dL (31.5-36.5); Mean Corpuscular Volume 91 fL (80-100); Mean Platelet Volume 9.6 fL (9.1-12.4); NEUTROPHILS ABSOLUTE AUTO 12.64 K/mm3 (1.96-9.15); NEUTROPHILS PERCENT AUTO 88 % (41-73); Platelet Count 435 K/mm3 (150-400); RDW Coefficient Variation 15.9 % (11.7-14.2); RDW Standard Deviation 53.1 fL (35.1-46.3); Red Blood Cell Count 4.64 M/mm3 (3.80-5.20); White Blood Cell Count 14.33 K/mm3 (4.00-11.30)
[2024-07-21 05:40] LABS: Albumin, Blood 4.2 g/dL (3.4-5.0); Albumin/Globulin Ratio 1.1 (0.8-1.8); Bilirubin, Total 0.8 mg/dL (0.1-1.0); Bun/Creatinine Ratio 14.8 (12.0-20.0); Calcium, Blood 9.9 mg/dL (8.5-10.1); Creatinine, Blood 2.63 mg/dL (0.40-1.00); Globulin, Blood 3.9 g/dL (2.2-4.0); Magnesium, Blood 2.1 mg/dL (1.6-2.4); Phosphorus, Blood 4.4 mg/dL (2.5-4.9); Potassium, Blood 3.2 mmol/L (3.5-5.5); Total Protein, Blood 8.1 g/dL (6.4-8.2)
[2024-07-21] MEDS ORDERED: Omeprazole 20 MG CapCR PO SCH (06:00)
[2024-07-21] MEDS ORDERED: Potassium Chloride 20 MEQ TabCR PO ONE (06:40)
[2024-07-21] MEDS ORDERED: Anticoagulant Sod Citrate Soln 3 ML SYR INJ PRN (08:00)
[2024-07-21] MEDS ORDERED: Cyanocobalamin 500 MCG Tab PO SCH (09:00)
[2024-07-21] MEDS ORDERED: Citalopram Hydrobromide 20 MG Tab PO SCH (09:00)
[2024-07-21] MEDS ORDERED: buPROPion HCL 150 MG TAB.SR.12H PO SCH (09:00)
[2024-07-21] MEDS ORDERED: Clopidogrel Bisulfate 75 MG Tab PO SCH (09:00)
[2024-07-21] MEDS ORDERED: Ascorbic Acid 500 MG Tab PO SCH (09:00)
[2024-07-21] MEDS ORDERED: AmLODIPine Besylate 5 MG Tab PO SCH (09:00)
--- NOTE | 2024-07-21 16:25 | NUR ---
SHIFT SUMMARY: PATIENT A/OX4, CALM PLEASANT AND COOPERATIVE c CARE. PATIENT DENIES CP/PRESSURE, SOB AND DIZZINESS. PATIENT ON TELE, SR HR IN THE 70-80'S BPM, HYPERTENSIVE PATIENT HAD 200 MLS BROWN UNDIGESTED AND SOME LIQUID EMESIS THIS SHIFT. PATIENT MEDICATED c SCHEDULED AND PRN NAUSEA MEDS PER EMAR c MOD EFFECT. PATIENT WAS DIALYZED TODAY c 500 MLS NET FLUID REMOVED. PATIENT HAS FAIR APPETITE AND DRINKING LIQUID W/OUT ANY ISSUE. PATIENT REPORTS STATED, "I DON'T LIKE THE SMELL OF THE FOOD, IT MAKES ME NAUSEOUS." PATIENT INCONTINENT OF BLADDER, ATTENDS PLACED AND CHANGED PRN. PATIENT L LEG IMMOBILIZER IN PLACED. BED ALARM ON FOR SAFETY. CALL LIGHT IN REACH.
[2024-07-22 03:18] VITALS: BP 124/59
[2024-07-22 06:14] LABS: BASOPHILS ABSOLUTE AUTO 0.07 K/mm3 (0.00-0.23); BASOPHILS PERCENT AUTO 1 % (0-2); EOSINOPHILS ABSOLUTE AUTO 0.04 K/mm3 (0.00-0.68); EOSINOPHILS PERCENT AUTO 0 % (0-6); Hemoglobin 13.3 g/dL (11.5-16.0); IMMATURE GRAN ABSOLUTE AUTO 0.08 K/mm3 (0.00-0.10); IMMATURE GRAN PERCENT AUTO 1 % (0-1); LYMPHOCYTES ABSOLUTE AUTO 1.21 K/mm3 (0.84-5.20); LYMPHOCYTES PERCENT AUTO 9 % (21-46); MONOCYTES ABSOLUTE AUTO 1.43 K/mm3 (0.16-1.47); MONOCYTES PERCENT AUTO 11 % (4-13); Mean Corpuscular HGB 29.2 pg (26.0-34.0); Mean Corpuscular HGB Conc 32.4 g/dL (31.5-36.5); Mean Corpuscular Volume 90 fL (80-100); Mean Platelet Volume 9.8 fL (9.1-12.4); NEUTROPHILS ABSOLUTE AUTO 10.33 K/mm3 (1.96-9.15); NEUTROPHILS PERCENT AUTO 79 % (41-73); Platelet Count 414 K/mm3 (150-400); RDW Coefficient Variation 15.6 % (11.7-14.2); RDW Standard Deviation 50.9 fL (35.1-46.3); Red Blood Cell Count 4.55 M/mm3 (3.80-5.20); White Blood Cell Count 13.16 K/mm3 (4.00-11.30)
[2024-07-22 06:41] LABS: Albumin, Blood 3.6 g/dL (3.4-5.0); Anion Gap 13 mmol/L (3-11); Blood Urea Nitrogen 31 mg/dL (8-24); CO2, Blood 29 mmol/L (21-32); Calcium, Blood 9.1 mg/dL (8.5-10.1); Chloride, Blood 93 mmol/L (98-108); Creatinine, Blood 2.21 mg/dL (0.40-1.00); Glomerular Filtration Rate 24 (60-); Glucose, Blood 182 mg/dL (70-99); Magnesium, Blood 1.9 mg/dL (1.6-2.4); Phosphorus, Blood 3.1 mg/dL (2.5-4.9); Potassium, Blood 3.4 mmol/L (3.5-5.5); Sodium, Blood 132 mmol/L (136-145)
[2024-07-22] MEDS ORDERED: Potassium Chloride 20 MEQ TabCR PO ONE (07:30)
[2024-07-22 08:00] VITALS: BP 179/81
[2024-07-22] MEDS ORDERED: Calcitriol 0.25 MCG Cap PO SCH (09:00)
[2024-07-22 15:33] VITALS: BP 166/70
--- NOTE | 2024-07-22 16:18 | NUR ---
SHIFT SUMMARY MS MONTGOMERY HAS BEEN TIRED TODAY, DOZING FOR MUCH OF THE SHIFT. SHE HAS C/O NAUSEA. HELPED SLIGHTLY BY REGLAN AND ZOFRAN. SHE ATE 25% OF HER LUNCH TRAY AND FELT NAUSEAUS AFTER EATING. SHE IS TOLERATING SOME SNACKS. SHE BRUSHED HER TEETH WITH ENCOURAGEMENT BUT HAS DECLINED ASSISTANCE TO SIT UP IN THE CHAIR TODAY. SR ON TELEMETRY, NO CALLS FROM [facility]. ENCOURAGED TO REPOSITION IN BED Q2HRS. ON CONTINUOUS PULSE OX, DECLINED CPAP WHILE DOZING TODAY AND PUT ON 1L NC WHILE DOZING TO MAINTAIN SATS IN THE 90S ON CONTINUOUS PULSE OX. BED LOW, CALL LIGHT IN REACH.
[2024-07-22] MEDS ORDERED: ONDA4ODT MM (17:19)
[2024-07-22] MEDS ORDERED: ALBU90OI INH (17:20)
[2024-07-22] MEDS ORDERED: FUROSEMIDE20 MG PO (17:25)
[2024-07-22] MEDS ORDERED: OMEP20ER PO (17:26)
[2024-07-22] MEDS ORDERED: SODBIC650 PO (17:27)
[2024-07-22 20:44] VITALS: BP 149/70
[2024-07-23] VITALS (15 sets, daily range): BP systolic 85–191; BP diastolic 40–84
--- NOTE | 2024-07-23 03:25 | NUR ---
SEROLOGY TECHNICIAN SUMMARY: PT ADMITTED FOR DIABETIC GASTROPARESIS. FULL CODE. A&O X4. MAKES NEEDS KNOWN. HS CB. DENIES NAUSEA AND PAIN T/O SHIFT. L LEG IMMOBILIZER IN PLACE. PT WEARING CPAP WHILE SLEEPING. VSS. NO ACUTE CHANGES T/O SHIFT. BED IN LOWEST POSITION. CALL LIGHT IN REACH. CARES CONTINUE ORDERED.
[2024-07-23 05:44] LABS: BASOPHILS ABSOLUTE AUTO 0.06 K/mm3 (0.00-0.23); BASOPHILS PERCENT AUTO 0 % (0-2); EOSINOPHILS ABSOLUTE AUTO 0.16 K/mm3 (0.00-0.68); EOSINOPHILS PERCENT AUTO 1 % (0-6); Hematocrit 36.2 % (33.0-51.0); Hemoglobin 13.4 g/dL (11.5-16.0); IMMATURE GRAN ABSOLUTE AUTO 0.09 K/mm3 (0.00-0.10); IMMATURE GRAN PERCENT AUTO 1 % (0-1); LYMPHOCYTES PERCENT AUTO 11 % (21-46); MONOCYTES ABSOLUTE AUTO 1.58 K/mm3 (0.16-1.47); MONOCYTES PERCENT AUTO 10 % (4-13); Mean Corpuscular HGB 32.8 pg (26.0-34.0); Mean Corpuscular Volume 89 fL (80-100); NEUTROPHILS ABSOLUTE AUTO 11.66 K/mm3 (1.96-9.15); NEUTROPHILS PERCENT AUTO 77 % (41-73); Platelet Count 341 K/mm3 (150-400); RDW Coefficient Variation 15.3 % (11.7-14.2); Red Blood Cell Count 4.08 M/mm3 (3.80-5.20); White Blood Cell Count 15.15 K/mm3 (4.00-11.30)
[2024-07-23 06:13] LABS: Albumin, Blood 3.6 g/dL (3.4-5.0); Anion Gap 13 mmol/L (3-11); Blood Urea Nitrogen 43 mg/dL (8-24); Bun/Creatinine Ratio 17.2 (12.0-20.0); CO2, Blood 27 mmol/L (21-32); Chloride, Blood 94 mmol/L (98-108); Glomerular Filtration Rate 21 (60-); Glucose, Blood 207 mg/dL (70-99); Magnesium, Blood 2.1 mg/dL (1.6-2.4); Phosphorus, Blood 3.1 mg/dL (2.5-4.9); Potassium, Blood 3.9 mmol/L (3.5-5.5); Sodium, Blood 130 mmol/L (136-145)
[2024-07-23] MEDS ORDERED: Anticoagulant Sod Citrate Soln 3 ML SYR INJ PRN (08:00)
--- NOTE | 2024-07-24 03:39 | NUR ---
SHIFT SUMMARY 63 YR F ADMITTED ON 07/19/24. FULL CODE. NO ACUTE CHANGES THIS SHIFT. PT HAS SLEPT FOR THE ENTIRETY OF THIS SHIFT. NO C/O PAIN OR DISCOMFORT. NO INSULIN COVERAGE NEEDED THIS SHIFT. PT IS A&O X 4 AND IS ABLE TO MAKE HER NEEDS KNOWN. WILL CONTINUE TO MONITOR. BED IN LOW POSITION AND CALL LIGHT IN REACH.
[2024-07-24 04:30] VITALS: BP 142/68
[2024-07-24 05:08] LABS: Hematocrit 40.2 % (33.0-51.0); Hemoglobin 13.4 g/dL (11.5-16.0)
[2024-07-24 05:54] LABS: Albumin, Blood 3.4 g/dL (3.4-5.0); Anion Gap 14 mmol/L (3-11); Blood Urea Nitrogen 34 mg/dL (8-24); Bun/Creatinine Ratio 15.6 (12.0-20.0); CO2, Blood 25 mmol/L (21-32); Calcium, Blood 8.8 mg/dL (8.5-10.1); Chloride, Blood 97 mmol/L (98-108); Creatinine, Blood 2.18 mg/dL (0.40-1.00); Glomerular Filtration Rate 25 (60-); Glucose, Blood 151 mg/dL (70-99); Magnesium, Blood 2.2 mg/dL (1.6-2.4); Phosphorus, Blood 2.7 mg/dL (2.5-4.9); Potassium, Blood 4.1 mmol/L (3.5-5.5); Sodium, Blood 132 mmol/L (136-145)
[2024-07-24 07:51] VITALS: BP 155/75
[2024-07-24] MEDS ORDERED: Docusate Sodium/Senna 1 Tab PO PRN (09:55)
[2024-07-24] MEDS ORDERED: Polyethylene Glycol 3350 17 gm PO PRN (09:55)
[2024-07-24] MEDS ORDERED: DOCUZEN 8.6-501 EACH PO (12:12)
--- NOTE | 2024-07-24 14:12 | NUR ---
DISCHARGE NOTE NO ACUTE CHANGES PRIOR TO DISCHARGE. PT DISCHARGED HOME, TRANSPORTED BY [facility]. IV REMOVED, TELE RETURNED. DISCHARGE EDUCATION AND INFORMATION PROVIDED. NO NEW MEDICATIONS.
== END 2024-07-24 13:45 | disposition home health service (06) ==
LOC: ER 18:05 → ERHOLD 18:06 → MEDS 18:06 → ENPENDDIS 07-24 11:49 → MEDS 07-24 13:45
PROVIDERS: Emergency Medicine; Internal Medicine Nephrology; Student in an Organized Health Care Education/Training Program; ADMIT Internal Medicine
DX: R11.2 Nausea with vomiting, unspecified (principal); I25.10 Atherosclerotic heart disease of native coronary artery without angina pectoris; E11.22 Type 2 diabetes mellitus with diabetic chronic kidney disease; I13.2 Hypertensive heart and chronic kidney disease with heart failure and with stage 5 chronic kidney disease, or end stage renal disease; I50.30 Unspecified diastolic (congestive) heart failure; N18.6 End stage renal disease; E87.6 Hypokalemia; D72.829 Elevated white blood cell count, unspecified; F32.9 Major depressive disorder, single episode, unspecified; E11.43 Type 2 diabetes mellitus with diabetic autonomic (poly)neuropathy; K31.84 Gastroparesis; G47.30 Sleep apnea, unspecified; N25.81 Secondary hyperparathyroidism of renal origin; Z79.4 Long term (current) use of insulin; Z79.899 Other long term (current) drug therapy; Z88.8 Allergy status to other drugs, medicaments and biological substances; Z91.018 Allergy to other foods; Z95.1 Presence of aortocoronary bypass graft; Z99.2 Dependence on renal dialysis
CPT/HCPCS: 36415; 51701; 80053; 80069; 81001; 82010; 82803; 82947; 83690; 83735; 84100; 84484; 85014; 85018; 85025; 93005; 93010; 94660; 94762; 96372; 96374; 96375; 96376; 97161; 97530; 99285-25; A9270; G0257; G0378; J1644; J1815; J2405; J2765; J7030

== ENCOUNTER → 2024-08-13 | Outpatient (CLI) | payer SELFPAY ==
[~2024-08-13] MED LIST changes: +DOCUZEN 8.6-501 EACH PO; +FUROSEMIDE20 MG PO; +ONDA4ODT MM
[2024-08-13 12:38] LABS: Albumin, Blood 3.6 g/dL (3.4-5.0); Anion Gap 12 mmol/L (3-11); Blood Urea Nitrogen 54 mg/dL (8-24); Bun/Creatinine Ratio 18.1 (12.0-20.0); CO2, Blood 26 mmol/L (21-32); Calcium, Blood 9.3 mg/dL (8.5-10.1); Chloride, Blood 105 mmol/L (98-108); Creatinine, Blood 2.98 mg/dL (0.40-1.00); Glomerular Filtration Rate 17 (60-); Glucose, Blood 109 mg/dL (70-99); Phosphorus, Blood 4.7 mg/dL (2.5-4.9); Sodium, Blood 139 mmol/L (136-145)
== END ==
LOC: LAB 11:20 → LAB SHORT 11:20
PROVIDERS: Internal Medicine Nephrology
DX: N18.6 End stage renal disease (principal)
CPT/HCPCS: 80069

== ENCOUNTER → 2024-08-15 | Outpatient (CLI) | payer SELFPAY ==
[2024-08-15 12:37] LABS: Albumin, Blood 3.6 g/dL (3.4-5.0); Anion Gap 12 mmol/L (3-11); Blood Urea Nitrogen 51 mg/dL (8-24); Bun/Creatinine Ratio 20.1 (12.0-20.0); CO2, Blood 24 mmol/L (21-32); Calcium, Blood 9.4 mg/dL (8.5-10.1); Chloride, Blood 106 mmol/L (98-108); Creatinine, Blood 2.54 mg/dL (0.40-1.00); Glomerular Filtration Rate 20 (60-); Glucose, Blood 271 mg/dL (70-99); Phosphorus, Blood 3.8 mg/dL (2.5-4.9); Potassium, Blood 4.8 mmol/L (3.5-5.5); Sodium, Blood 137 mmol/L (136-145)
== END ==
LOC: LAB SHORT 12:13 → LAB 12:13
PROVIDERS: Internal Medicine Nephrology
DX: N18.6 End stage renal disease (principal)
CPT/HCPCS: 80069

== ENCOUNTER 2024-11-05 18:24 | Inpatient (IN) | payer MEDICARE ==
[~2024-11-05] VITALS: Ht 154.9 cm; Wt 90.5 kg
[~2024-11-05 18:24] MED LIST changes: -DERMACINRX FOL1 EAC2 PO; +VITAMIN D5000 UNIT PO
[2024-11-05 19:47] LABS: BASOPHILS ABSOLUTE AUTO 0.09 K/mm3 (0.00-0.23); BASOPHILS PERCENT AUTO 1 % (0-2); EOSINOPHILS ABSOLUTE AUTO 0.44 K/mm3 (0.00-0.68); EOSINOPHILS PERCENT AUTO 3 % (0-6); Hematocrit 31.6 % (33.0-51.0); Hemoglobin 9.6 g/dL (11.5-16.0); IMMATURE GRAN PERCENT AUTO 1 % (0-1); LYMPHOCYTES ABSOLUTE AUTO 0.95 K/mm3 (0.84-5.20); LYMPHOCYTES PERCENT AUTO 7 % (21-46); MONOCYTES PERCENT AUTO 6 % (4-13); Mean Corpuscular HGB 28.5 pg (26.0-34.0); Mean Corpuscular HGB Conc 30.4 g/dL (31.5-36.5); Mean Corpuscular Volume 94 fL (80-100); Mean Platelet Volume 10.2 fL (9.1-12.4); NEUTROPHILS ABSOLUTE AUTO 11.27 K/mm3 (1.96-9.15); NEUTROPHILS PERCENT AUTO 83 % (41-73); Platelet Count 347 K/mm3 (150-400); RDW Coefficient Variation 17.1 % (11.7-14.2); RDW Standard Deviation 58.4 fL (35.1-46.3); Red Blood Cell Count 3.37 M/mm3 (3.80-5.20); White Blood Cell Count 13.65 K/mm3 (4.00-11.30)
[2024-11-05 20:19] LABS: Albumin, Blood 3.9 g/dL (3.4-5.0); Albumin/Globulin Ratio 1.1 (0.8-1.8); Bilirubin, Total 0.6 mg/dL (0.1-1.0); Bun/Creatinine Ratio 21.4 (12.0-20.0); Calcium, Blood 9.5 mg/dL (8.5-10.1); Creatinine, Blood 2.95 mg/dL (0.40-1.00); Globulin, Blood 3.5 g/dL (2.2-4.0); Potassium, Blood 4.9 mmol/L (3.5-5.5); Total Protein, Blood 7.4 g/dL (6.4-8.2)
[2024-11-05 20:25] LABS: Source, Urine Clean Catch
[2024-11-05 20:29] LABS: Appearance, Urine Clear (Clear); Bilirubin, Urine Neg (Neg); Blood, Urine Neg (Neg); Glucose Qualitative, Urine Neg (Neg); Ketones, Urine Neg (Neg); Leukocyte Esterase, Urine 3+ (Neg); Nitrite, Urine Pos (Neg); Protein, Urine 2+ (Neg); Urobilinogen, Urine NORM (Normal)
[2024-11-05 20:39] LABS: Color, Urine Pale Yellow (P-Yellow)
[2024-11-05 20:40] LABS: Red Blood Cells, Urine Not Seen /hpf (0-2); White Blood Cells, Urine TNTC /hpf (0-5)
[2024-11-05 20:41] LABS: Bacteria Many /hpf; Squamous Epithelial Cells Not Seen /hpf (Few)
[2024-11-05 21:45] LABS: Base Excess Venous -4.9 mmol/L; Bicarbonate Venous 20.8 mmol/L (24.0-30.0); PCO2 Venous 35.1 mmHg (38-42); pH Blood Venous 7.37 (7.34-7.37)
[2024-11-05] MEDS ORDERED: CefTRIAXone Sodium 1,000 MG in NS 100 ML IV ONE (22:45)
[2024-11-05] MEDS ORDERED: Pantoprazole Sodium 40 MG Injection IV ONE (23:00)
[2024-11-06] MEDS ORDERED: Ondansetron HCl 2 MG / ML 2ML Vial IV PRN (01:10)
[2024-11-06] MEDS ORDERED: NS 1,000 ML IV ONE (01:10)
[2024-11-06 01:37] LABS: Percent Saturation 14.7 % (15.0-50.0)
[2024-11-06 01:40] LABS: Hematocrit 31.3 % (33.0-51.0); Hemoglobin 9.7 g/dL (11.5-16.0); IMMATURE RETIC FRACTION 12.3 % (2.3-16.0); RETIC HGB EQUIVALENT 32.3 pg (28.20-36.60); RETICULOCYTE ABSOLUTE 0.0535 M/mm3 (0.0200-0.1100); RETICULOCYTE COUNT PERCENT 1.57 % (0.50-2.50)
[2024-11-06 02:20] VITALS: BP 176/75
--- NOTE | 2024-11-06 02:21 | NUR ---
ADMIT NOTE 64 YR OLD FEMALE ADMITTED TO FLOOR FROM THE ED WITH DX OF SEPSIS AND ED RN VOICED POSSIBLE UTI. ALERT AND ORIENTED. SKIN ASSESSMENT NO NOTED ANOMALIES. ORIENTED TO USE OF CALL LIGHT AND BED CONTROL. NPO PER MD ORDERS. UP AD VALDO WITH OBSERVATION AND WALKER. IVF OF NS INFUSING AT 75 ML/HR. CALL LIGHT IN REACH. MED TELE - NSR. WILL MONITOR
--- NOTE | 2024-11-06 03:35 | NUR ---
MEDICAL RESEARCH ASSOCIATE SUMMARY ADMITTED EARLIER IN THE SHOFT WITH DX OF SEPSIS. WAS NPO, BUT ORDERED ADA DIET AFTER REVIEW OF PT STATUS. ALERT AND ORIENTED. UP AD VALDO WITH OBSERVATION AND WALKER. HAS BEEN RESTING QUIETLY WITH FEW INTERRUPTONS AFTER SNACK AND WATER. CALL LIGHT IN REACH, RAILS UP X 2 AND BED IN LOW POSITION FOR SAFETY. WILL CONT TO MONITOR
[2024-11-06 05:12] LABS: BASOPHILS ABSOLUTE AUTO 0.07 K/mm3 (0.00-0.23); BASOPHILS PERCENT AUTO 1 % (0-2); EOSINOPHILS ABSOLUTE AUTO 0.68 K/mm3 (0.00-0.68); EOSINOPHILS PERCENT AUTO 6 % (0-6); Hematocrit 27.5 % (33.0-51.0); Hemoglobin 8.8 g/dL (11.5-16.0); IMMATURE GRAN ABSOLUTE AUTO 0.08 K/mm3 (0.00-0.10); IMMATURE GRAN PERCENT AUTO 1 % (0-1); LYMPHOCYTES ABSOLUTE AUTO 1.54 K/mm3 (0.84-5.20); LYMPHOCYTES PERCENT AUTO 14 % (21-46); MONOCYTES ABSOLUTE AUTO 1.08 K/mm3 (0.16-1.47); MONOCYTES PERCENT AUTO 10 % (4-13); Mean Corpuscular HGB 28.9 pg (26.0-34.0); Mean Corpuscular Volume 90 fL (80-100); Mean Platelet Volume 10.6 fL (9.1-12.4); NEUTROPHILS ABSOLUTE AUTO 7.94 K/mm3 (1.96-9.15); NEUTROPHILS PERCENT AUTO 70 % (41-73); Platelet Count 334 K/mm3 (150-400); RDW Coefficient Variation 16.9 % (11.7-14.2); RDW Standard Deviation 55.6 fL (35.1-46.3); Red Blood Cell Count 3.05 M/mm3 (3.80-5.20); White Blood Cell Count 11.39 K/mm3 (4.00-11.30)
[2024-11-06 05:35] LABS: Albumin, Blood 3.3 g/dL (3.4-5.0); Bilirubin, Total 0.4 mg/dL (0.1-1.0); Bun/Creatinine Ratio 20.3 (12.0-20.0); Calcium, Blood 8.6 mg/dL (8.5-10.1); Creatinine, Blood 3.01 mg/dL (0.40-1.00); Globulin, Blood 3.3 g/dL (2.2-4.0); Total Protein, Blood 6.6 g/dL (6.4-8.2)
[2024-11-06 07:19] VITALS: BP 170/77
[2024-11-06] MEDS ORDERED: Heparin Sodium,Porcine 5,000 UNIT/0.5 ML SDV SC SCH (09:00)
[2024-11-06] MEDS ORDERED: FUROSEMIDE40 MG PO (11:37)
[2024-11-06] MEDS ORDERED: BUPROPION XL150 M1 PO (11:37)
[2024-11-06] MEDS ORDERED: Mirapex0.5 MG PO (11:38)
[2024-11-06] MEDS ORDERED: PLAVIX75 MG PO (11:38)
[2024-11-06] MEDS ORDERED: NS 1,000 ML IV SCH (12:00)
[2024-11-06 12:30] LABS: Hematocrit 29.8 % (33.0-51.0); Hemoglobin 9.1 g/dL (11.5-16.0)
[2024-11-06 14:04] LABS: U Amphetamine Screen Not Detected; U Methamphetamine Screen Not Detected
[2024-11-06 14:05] LABS: U Barbituate Screen Not Detected; U Benzodiazapine Screen Not Detected; U Buprenorphine Screen Not Detected; U Cannabinoids Screen Not Detected; U Cocaine Screen Not Detected; U Methadone Screen Not Detected; U Opiates Screen Not Detected; U Oxycodone Screen Not Detected; U Phencyclidine Screen Not Detected
[2024-11-06 15:41] VITALS: BP 156/70
[2024-11-06] MEDS ORDERED: Darbepoetin Alfa In Albumn Sol 40 MCG/0.4 ML SC SCH (16:00)
[2024-11-06 17:43] LABS: Hematocrit 28.8 % (33.0-51.0); Hemoglobin 9.1 g/dL (11.5-16.0)
[2024-11-06 20:13] VITALS: BP 165/69
[2024-11-06] MEDS ORDERED: CefTRIAXone Sodium 1,000 MG in NS 100 ML IV SCH (21:00)
[2024-11-06] MEDS ORDERED: Atorvastatin 40 MG Tab PO SCH (21:00)
[2024-11-06] MEDS ORDERED: Aspirin 81 MG TabEC PO SCH (21:00)
[2024-11-06] MEDS ORDERED: Folic Acid 1 MG TAB PO SCH (21:00)
[2024-11-06 23:02] LABS: Influenza A, PCR NEGATIVE (NEGATIVE); Influenza B, PCR NEGATIVE (NEGATIVE); Resp Syncytial Virus, PCR NEGATIVE (NEGATIVE); SARS-Cov-2 (COVID-19) PCR, MMC NEGATIVE (NEGATIVE)
[2024-11-06 23:53] LABS: Hematocrit 26.7 % (33.0-51.0); Hemoglobin 8.6 g/dL (11.5-16.0)
[2024-11-07] VITALS (7 sets, daily range): BP systolic 138–182; BP diastolic 53–70
--- NOTE | 2024-11-07 03:48 | NUR ---
SHIFT SUMMARY: A&O4. AMBULATES SBA WITH WC TO TOILET.VSS. EDEMA NOTED TO JANELL ANKLES. NO C/O PAIN. RECEIVING IV FLUIDS AND ABX PER eMAR. BED ALARM IS ON. CALL LIGHT IS WITHIN REACH.
[2024-11-07 04:46] LABS: BASOPHILS ABSOLUTE AUTO 0.06 K/mm3 (0.00-0.23); BASOPHILS PERCENT AUTO 1 % (0-2); EOSINOPHILS ABSOLUTE AUTO 0.71 K/mm3 (0.00-0.68); EOSINOPHILS PERCENT AUTO 6 % (0-6); Hematocrit 27.5 % (33.0-51.0); Hemoglobin 8.6 g/dL (11.5-16.0); IMMATURE GRAN PERCENT AUTO 1 % (0-1); LYMPHOCYTES ABSOLUTE AUTO 1.84 K/mm3 (0.84-5.20); LYMPHOCYTES PERCENT AUTO 16 % (21-46); MONOCYTES ABSOLUTE AUTO 1.25 K/mm3 (0.16-1.47); MONOCYTES PERCENT AUTO 11 % (4-13); Mean Corpuscular HGB 28.3 pg (26.0-34.0); Mean Corpuscular HGB Conc 31.3 g/dL (31.5-36.5); Mean Corpuscular Volume 91 fL (80-100); Mean Platelet Volume 10.3 fL (9.1-12.4); NEUTROPHILS ABSOLUTE AUTO 7.41 K/mm3 (1.96-9.15); NEUTROPHILS PERCENT AUTO 65 % (41-73); Platelet Count 338 K/mm3 (150-400); RDW Coefficient Variation 17.1 % (11.7-14.2); Red Blood Cell Count 3.04 M/mm3 (3.80-5.20); White Blood Cell Count 11.37 K/mm3 (4.00-11.30)
[2024-11-07 05:03] LABS: Magnesium, Blood 2.2 mg/dL (1.6-2.4)
[2024-11-07 05:18] LABS: Albumin, Blood 3.2 g/dL (3.4-5.0); Anion Gap 11 mmol/L (3-11); Blood Urea Nitrogen 63 mg/dL (8-24); Bun/Creatinine Ratio 19.7 (12.0-20.0); CO2, Blood 24 mmol/L (21-32); Calcium, Blood 8.8 mg/dL (8.5-10.1); Chloride, Blood 118 mmol/L (98-108); Creatinine, Blood 3.19 mg/dL (0.40-1.00); Glomerular Filtration Rate 16 (60-); Glucose, Blood 129 mg/dL (70-99); Phosphorus, Blood 4.3 mg/dL (2.5-4.9); Potassium, Blood 4.3 mmol/L (3.5-5.5)
[2024-11-07 05:21] LABS: Sodium, Blood 149 mmol/L (136-145)
[2024-11-07] MEDS ORDERED: Dextrose 5% 1,000 ML IV SCH (05:35)
[2024-11-07] MEDS ORDERED: Omeprazole 20 MG CapCR PO SCH (06:00)
--- NOTE | 2024-11-07 06:06 | NUR ---
DR. ROJAS CAME IN AND SEEN THE PT AND ORDERED TO DC THE NS AND CHANGE TO D5 AT 100. CALLED TO CLARIFY IT WITH HIM SINCE THE PT IS A DIABETIC AND HE STATED THAT YES THAT IS THE ORDER THAT HE WANTS
[2024-11-07] MEDS ORDERED: buPROPion HCL 150 MG TAB.SR.12H PO SCH (09:00)
[2024-11-07] MEDS ORDERED: AmLODIPine Besylate 5 MG Tab PO SCH (09:00)
[2024-11-07] MEDS ORDERED: Citalopram Hydrobromide 20 MG Tab PO SCH (09:00)
[2024-11-07] MEDS ORDERED: Clopidogrel Bisulfate 75 MG Tab PO SCH (09:00)
[2024-11-07] MEDS ORDERED: Insulin Human Lispro 100 Units/ML 3ML Syringe SC SCH (11:30)
[2024-11-07] MEDS ORDERED: Carvedilol 6.25 MG Tab PO SCH (17:00)
--- NOTE | 2024-11-07 18:20 | NUR ---
END OF SHIFT PT ALERT, ORIENTED, ABLE TO MAKE NEEDS KNOWN. NEW ORDERS FOR CBGS WITH S/S INSULIN. PT USES CALL LIGHT NEEDED, WAITS FOR ASSISTANCE. PT NEEDING STAND BY ASSISTANCE FOR SAFETY, BUT ABLE TO GET HERSELF OUT OF BED AND INTO HER WHEEL CHAIR BY HERSELF, AND TAKE CARE OF HER NEEDS IN THE BATHROOM. PT LOST IV ACCESS AND WENT WITHOUT FLUIDS FOR A COUPLE OF HOURS BEFORE GETTING RESTARTED. NEW ORDERS FOR PT AND OT. MD ASKED FOR A PRV, THIS WAS DONE. PRV 18ML. PT HAS CALL LIGHT WITHIN REACH, NOT NEEDING MUCH ASSISTANCE BETWEEN HOURLY ROUNDING.
[2024-11-07] MEDS ORDERED: NS 1,000 ML IV SCH (22:10)
[2024-11-08 03:59] VITALS: BP 158/63
[2024-11-08 05:10] LABS: BASOPHILS ABSOLUTE AUTO 0.08 K/mm3 (0.00-0.23); BASOPHILS PERCENT AUTO 1 % (0-2); EOSINOPHILS ABSOLUTE AUTO 0.74 K/mm3 (0.00-0.68); EOSINOPHILS PERCENT AUTO 6 % (0-6); Hematocrit 26.2 % (33.0-51.0); Hemoglobin 8.3 g/dL (11.5-16.0); IMMATURE GRAN ABSOLUTE AUTO 0.06 K/mm3 (0.00-0.10); IMMATURE GRAN PERCENT AUTO 1 % (0-1); LYMPHOCYTES ABSOLUTE AUTO 1.85 K/mm3 (0.84-5.20); LYMPHOCYTES PERCENT AUTO 15 % (21-46); MONOCYTES PERCENT AUTO 9 % (4-13); Mean Corpuscular HGB 28.3 pg (26.0-34.0); Mean Corpuscular HGB Conc 31.7 g/dL (31.5-36.5); Mean Corpuscular Volume 89 fL (80-100); Mean Platelet Volume 10.4 fL (9.1-12.4); NEUTROPHILS ABSOLUTE AUTO 8.97 K/mm3 (1.96-9.15); NEUTROPHILS PERCENT AUTO 70 % (41-73); Platelet Count 319 K/mm3 (150-400); RDW Coefficient Variation 16.7 % (11.7-14.2); RDW Standard Deviation 54.6 fL (35.1-46.3); Red Blood Cell Count 2.93 M/mm3 (3.80-5.20)
--- NOTE | 2024-11-08 05:16 | NUR ---
SHIFT SUMMARY PT ALERT ORIENTED X 4 ABLE TO VERBALIZE NEEDS CALLS APPROPRIATELY. GETS UP TO W/C AND BRINGS SELF INTO THE BATHROOM AND CAN TRANSFER TO TOILET WITH 1 PERSON ASSIST. REMAINS ON ROCEPHIN QDAY FOR UTO SEPSIS. VSS ON RA SATTING AT 94-96%. REMAINS ON TELEMETRY AT NSR AT 70. SHE HAD REPEAT LABS DONE THIS AM. DR. ROJAS CALLED LAST NIGHT AT 2130 AND ORDERED A STAT NA LELEL WHICH WAS 135. I CALLED DR. BOB LEWIS INFORMED HIM OF WHAT THIS RESULTS WERE AND HE STATED TO CHANGE FLUIDS TO NS SHES RESTING AT THIS TIME IN BED
[2024-11-08 05:37] LABS: Magnesium, Blood 1.8 mg/dL (1.6-2.4)
[2024-11-08 05:39] LABS: Albumin, Blood 3.2 g/dL (3.4-5.0); Anion Gap 8 mmol/L (3-11); Blood Urea Nitrogen 61 mg/dL (8-24); Bun/Creatinine Ratio 21.1 (12.0-20.0); CO2, Blood 24 mmol/L (21-32); Calcium, Blood 8.7 mg/dL (8.5-10.1); Chloride, Blood 110 mmol/L (98-108); Creatinine, Blood 2.89 mg/dL (0.40-1.00); Glomerular Filtration Rate 18 (60-); Glucose, Blood 133 mg/dL (70-99); Phosphorus, Blood 3.4 mg/dL (2.5-4.9); Potassium, Blood 3.8 mmol/L (3.5-5.5); Sodium, Blood 138 mmol/L (136-145)
[2024-11-08] MEDS ORDERED: NS 1,000 ML IV SCH (06:00)
[2024-11-08 07:44] VITALS: BP 172/59
[2024-11-08] MEDS ORDERED: Calcitriol 0.25 MCG Cap PO SCH (09:00)
[2024-11-08 11:38] VITALS: BP 179/69
[2024-11-08] MEDS ORDERED: Carvedilol 6.25 MG Tab PO ONE (13:00)
[2024-11-08 13:49] VITALS: BP 130/59
[2024-11-08 15:28] VITALS: BP 169/72
[2024-11-08] MEDS ORDERED: Carvedilol 6.25 MG Tab PO SCH (17:00)
--- NOTE | 2024-11-08 17:38 | NUR ---
END OF SHIFT PT ALERT, ORIENTED, ABLE TO MAKE NEED KNOWN. PT BP CONTINUED TO BE ELEVATED, MD AWARE AND MADE ADJUSTMENTS TO HER MEDS AND STATED MORE CHANGES WOULD LIKELY HAPPEN TOMORROW IF BP CONT TO BE ELEVATED. PT CONT WITH NS AT 50ML HOUR, SBA WITH WHEELCHAIR FOR MOBILITY.
[2024-11-08 19:59] VITALS: BP 168/68
[2024-11-08] MEDS ORDERED: DiphenhydrAMINE HCl 50 MG Cap PO PRN (20:35)
[2024-11-09 00:12] VITALS: BP 153/62
[2024-11-09 03:57] VITALS: BP 145/61
[2024-11-09 06:13] LABS: BASOPHILS ABSOLUTE AUTO 0.06 K/mm3 (0.00-0.23); BASOPHILS PERCENT AUTO 1 % (0-2); EOSINOPHILS ABSOLUTE AUTO 0.65 K/mm3 (0.00-0.68); EOSINOPHILS PERCENT AUTO 5 % (0-6); Hematocrit 26.8 % (33.0-51.0); Hemoglobin 8.4 g/dL (11.5-16.0); IMMATURE GRAN ABSOLUTE AUTO 0.06 K/mm3 (0.00-0.10); IMMATURE GRAN PERCENT AUTO 1 % (0-1); LYMPHOCYTES ABSOLUTE AUTO 1.88 K/mm3 (0.84-5.20); LYMPHOCYTES PERCENT AUTO 16 % (21-46); MONOCYTES ABSOLUTE AUTO 1.07 K/mm3 (0.16-1.47); MONOCYTES PERCENT AUTO 9 % (4-13); Mean Corpuscular HGB 28.4 pg (26.0-34.0); Mean Corpuscular HGB Conc 31.3 g/dL (31.5-36.5); Mean Corpuscular Volume 91 fL (80-100); Mean Platelet Volume 10.6 fL (9.1-12.4); NEUTROPHILS ABSOLUTE AUTO 8.37 K/mm3 (1.96-9.15); NEUTROPHILS PERCENT AUTO 69 % (41-73); Platelet Count 308 K/mm3 (150-400); RDW Coefficient Variation 16.4 % (11.7-14.2); Red Blood Cell Count 2.96 M/mm3 (3.80-5.20); White Blood Cell Count 12.09 K/mm3 (4.00-11.30)
--- NOTE | 2024-11-09 06:36 | NUR ---
SHIFT SUMMARY PT ALERT ORIENTED ABLE TO VERBALIZE NEEDS GETS UP IN HER W/C AND WHEELS INTO THE BATHROOM WHERE SHE TRANSFERS ONTO THE TOILET. REMAINS ON ROCEPHIN ORDERED FOR UTI. FS DONE AC AND HS WAS 202. SHE C/O ITCHING NEW ORDER WAS OBTAINED FOR BENADRYL WHICH SHE SAID THAT SHE TAKES AT HOME FOR HER ECZ[place]. I GAVE HER A DOSE AND IT HELPED. REMAINS ON TELEMETRY AT NSR AT 71. CONTINUES ON NS AT 50. RESTING IN BED AT THIS TIME WITH CALL LIGHT IN REACH
[2024-11-09 06:53] LABS: Albumin, Blood 3.3 g/dL (3.4-5.0); Anion Gap 12 mmol/L (3-11); Blood Urea Nitrogen 54 mg/dL (8-24); Bun/Creatinine Ratio 21.5 (12.0-20.0); CO2, Blood 21 mmol/L (21-32); Chloride, Blood 111 mmol/L (98-108); Creatinine, Blood 2.51 mg/dL (0.40-1.00); Glomerular Filtration Rate 21 (60-); Glucose, Blood 121 mg/dL (70-99); Magnesium, Blood 1.9 mg/dL (1.6-2.4); Phosphorus, Blood 3.6 mg/dL (2.5-4.9); Potassium, Blood 3.6 mmol/L (3.5-5.5); Sodium, Blood 140 mmol/L (136-145)
[2024-11-09 11:27] VITALS: BP 146/52
[2024-11-09 15:44] VITALS: BP 128/51
--- NOTE | 2024-11-09 17:51 | NUR ---
SUMMARY- PT A/O X4, UP IN WHEELCHAIR MOST OF THE DAY. TOLERATING FOOD AND FLUIDS. IVF DC'D PER DR ROJAS. HE STATED PT COULD GO HOME TODAY FROM HIS STAND POINT. HOSPITALIST IS GOING TO LIKELY DC PT TOMORROW. PT VOIDING, GFR REMAINS LOW, VSS. WILL REPORT TO TAI RN.
[2024-11-09 20:09] VITALS: BP 169/84
[2024-11-10 02:13] VITALS: BP 142/50
[2024-11-10 05:01] LABS: BASOPHILS ABSOLUTE AUTO 0.08 K/mm3 (0.00-0.23); BASOPHILS PERCENT AUTO 1 % (0-2); EOSINOPHILS ABSOLUTE AUTO 0.57 K/mm3 (0.00-0.68); EOSINOPHILS PERCENT AUTO 5 % (0-6); Hematocrit 27.5 % (33.0-51.0); Hemoglobin 8.3 g/dL (11.5-16.0); IMMATURE GRAN ABSOLUTE AUTO 0.06 K/mm3 (0.00-0.10); IMMATURE GRAN PERCENT AUTO 1 % (0-1); LYMPHOCYTES ABSOLUTE AUTO 1.73 K/mm3 (0.84-5.20); LYMPHOCYTES PERCENT AUTO 14 % (21-46); MONOCYTES ABSOLUTE AUTO 1.16 K/mm3 (0.16-1.47); MONOCYTES PERCENT AUTO 9 % (4-13); Mean Corpuscular HGB 28.4 pg (26.0-34.0); Mean Corpuscular HGB Conc 30.2 g/dL (31.5-36.5); Mean Corpuscular Volume 94 fL (80-100); Mean Platelet Volume 10.3 fL (9.1-12.4); NEUTROPHILS ABSOLUTE AUTO 9.12 K/mm3 (1.96-9.15); NEUTROPHILS PERCENT AUTO 72 % (41-73); Platelet Count 282 K/mm3 (150-400); RDW Coefficient Variation 16.5 % (11.7-14.2); RDW Standard Deviation 56.6 fL (35.1-46.3); Red Blood Cell Count 2.92 M/mm3 (3.80-5.20); White Blood Cell Count 12.72 K/mm3 (4.00-11.30)
[2024-11-10 05:48] LABS: Magnesium, Blood 1.8 mg/dL (1.6-2.4)
[2024-11-10 05:49] LABS: Albumin, Blood 3.2 g/dL (3.4-5.0); Anion Gap 13 mmol/L (3-11); Blood Urea Nitrogen 46 mg/dL (8-24); Bun/Creatinine Ratio 21.1 (12.0-20.0); CO2, Blood 19 mmol/L (21-32); Calcium, Blood 8.9 mg/dL (8.5-10.1); Chloride, Blood 112 mmol/L (98-108); Creatinine, Blood 2.18 mg/dL (0.40-1.00); Glomerular Filtration Rate 25 (60-); Glucose, Blood 114 mg/dL (70-99); Phosphorus, Blood 3.4 mg/dL (2.5-4.9); Potassium, Blood 3.6 mmol/L (3.5-5.5); Sodium, Blood 140 mmol/L (136-145)
[2024-11-10 07:48] VITALS: BP 177/69
--- NOTE | 2024-11-10 08:15 | NUR ---
SHIFT SUMMARY PT HAS BEEN RESTING IN BED COMFORTABLY OVERNIGHT. PT HAS BEEN AOX4. SHE HAS BEEN ON RA OVERNIGHT. PT TRANSFERS TO WHEELCHAIR INDEPENDENTLY. PT ALSO USES FWW W/ 1PA. PT WAS TAKEN OFF OF TELEMETRY OVERNIGHT. PT HAD NO COMPLAINTS OVERNIGHT, AND NO ACUTE EVENTS OCCURRED OVERNIGHT.
[2024-11-10] MEDS ORDERED: Sodium Bicarbonate 650 MG Tab PO SCH (09:00)
[2024-11-10] MEDS ORDERED: Cefpodoxime Pr100 MG PO (12:29)
[2024-11-10] MEDS ORDERED: SODBIC650 PO (12:35)
--- NOTE | 2024-11-10 15:17 | NUR ---
PT DISCHARGED WITH DC INSTRUCTIONS AT 1400, PT SENT HOME WITH HER OWN WHEELCHAIR AND ALL BELONGINGS INCLUDINS CELL PHONE. DAUGHTER PUSHED WHEELCHAIR OUT TO CAR FOR DC HOME. IV IN LFA DC'D. NO OTHER IV'S PRESENT.
== END 2024-11-10 13:58 | disposition home or self-care (01) | DRG 871 ==
LOC: ER 18:24 → MEDS 23:41
PROVIDERS: Internal Medicine Nephrology; Student in an Organized Health Care Education/Training Program; ADMIT Internal Medicine
DX: A41.9 Sepsis, unspecified organism (principal); G93.41 Metabolic encephalopathy; N18.6 End stage renal disease; I13.2 Hypertensive heart and chronic kidney disease with heart failure and with stage 5 chronic kidney disease, or end stage renal disease; I50.32 Chronic diastolic (congestive) heart failure; N39.0 Urinary tract infection, site not specified; N17.9 Acute kidney failure, unspecified; E87.20 Acidosis, unspecified; N25.81 Secondary hyperparathyroidism of renal origin; E87.1 Hypo-osmolality and hyponatremia; E87.0 Hyperosmolality and hypernatremia; E11.22 Type 2 diabetes mellitus with diabetic chronic kidney disease; I25.10 Atherosclerotic heart disease of native coronary artery without angina pectoris; E78.5 Hyperlipidemia, unspecified; F32.9 Major depressive disorder, single episode, unspecified; G47.33 Obstructive sleep apnea (adult) (pediatric); E86.9 Volume depletion, unspecified; D63.1 Anemia in chronic kidney disease; Z99.2 Dependence on renal dialysis; E11.43 Type 2 diabetes mellitus with diabetic autonomic (poly)neuropathy; K31.84 Gastroparesis; G25.81 Restless legs syndrome; J44.89 Other specified chronic obstructive pulmonary disease; K21.9 Gastro-esophageal reflux disease without esophagitis; B96.20 Unspecified Escherichia coli [E. coli] as the cause of diseases classified elsewhere; Z96.641 Presence of right artificial hip joint; Z88.5 Allergy status to narcotic agent; Z95.1 Presence of aortocoronary bypass graft; Z88.8 Allergy status to other drugs, medicaments and biological substances; Z79.82 Long term (current) use of aspirin; Z79.4 Long term (current) use of insulin; I25.2 Old myocardial infarction; Z87.891 Personal history of nicotine dependence
CPT/HCPCS: 0241U; 36415; 71046; 76770; 80053; 80069; 81001; 82272; 82375; 82728; 82803; 82947; 83540; 83550; 83690; 83735; 83880; 84295; 84484; 85014; 85018; 85025; 85045; 87077; 87086; 87186; 93005; 93010; 93971; 96365; 96375; 97110; 97116; 97161; 97165; 97530; 97535; 99285-25; A9270; J0696; J0881; J1644; J2470; J7030; J7070

== ENCOUNTER 2024-12-17 17:11 | Emergency (ER) | payer MEDICARE, OTHER ==
[~2024-12-17] VITALS: Ht 157.5 cm; Wt 90.7 kg
[2024-12-17 19:11] LABS: Albumin, Blood 3.8 g/dL (3.4-5.0); Bilirubin, Total 0.7 mg/dL (0.1-1.0); Bun/Creatinine Ratio 30.6 (12.0-20.0); Calcium, Blood 9.3 mg/dL (8.5-10.1); Creatinine, Blood 3.07 mg/dL (0.40-1.00); Globulin, Blood 3.9 g/dL (2.2-4.0); Potassium, Blood 5.1 mmol/L (3.5-5.5); Total Protein, Blood 7.7 g/dL (6.4-8.2)
[2024-12-17 20:00] LABS: BASOPHILS ABSOLUTE AUTO 0.07 K/mm3 (0.00-0.23); BASOPHILS PERCENT AUTO 0 % (0-2); EOSINOPHILS ABSOLUTE AUTO 0.14 K/mm3 (0.00-0.68); EOSINOPHILS PERCENT AUTO 1 % (0-6); Hematocrit 29.4 % (33.0-51.0); Hemoglobin 9.4 g/dL (11.5-16.0); IMMATURE GRAN ABSOLUTE AUTO 0.17 K/mm3 (0.00-0.10); IMMATURE GRAN PERCENT AUTO 1 % (0-1); LYMPHOCYTES ABSOLUTE AUTO 0.84 K/mm3 (0.84-5.20); LYMPHOCYTES PERCENT AUTO 5 % (21-46); MONOCYTES ABSOLUTE AUTO 1.11 K/mm3 (0.16-1.47); MONOCYTES PERCENT AUTO 7 % (4-13); Mean Corpuscular HGB 28.5 pg (26.0-34.0); Mean Corpuscular Volume 89 fL (80-100); Mean Platelet Volume 10.5 fL (9.1-12.4); NEUTROPHILS ABSOLUTE AUTO 13.24 K/mm3 (1.96-9.15); NEUTROPHILS PERCENT AUTO 85 % (41-73); Platelet Count 365 K/mm3 (150-400); RDW Coefficient Variation 16.2 % (11.7-14.2); RDW Standard Deviation 52.7 fL (35.1-46.3); White Blood Cell Count 15.57 K/mm3 (4.00-11.30)
[2024-12-18 02:00] VITALS: BP 157/80
== END 2024-12-18 02:05 | disposition home or self-care (01) ==
LOC: ER 17:11
PROVIDERS: Student in an Organized Health Care Education/Training Program
DX: I13.2 Hypertensive heart and chronic kidney disease with heart failure and with stage 5 chronic kidney disease, or end stage renal disease (principal); I50.9 Heart failure, unspecified; E11.22 Type 2 diabetes mellitus with diabetic chronic kidney disease; N18.6 End stage renal disease; J44.89 Other specified chronic obstructive pulmonary disease; E78.5 Hyperlipidemia, unspecified; K21.9 Gastro-esophageal reflux disease without esophagitis; I25.2 Old myocardial infarction; I25.10 Atherosclerotic heart disease of native coronary artery without angina pectoris; Z91.02 Food additives allergy status; Z88.5 Allergy status to narcotic agent; Z88.8 Allergy status to other drugs, medicaments and biological substances; Z91.018 Allergy to other foods; Z99.2 Dependence on renal dialysis; Z95.1 Presence of aortocoronary bypass graft; Z87.891 Personal history of nicotine dependence; R06.09 Other forms of dyspnea; R05.9 Cough, unspecified
CPT/HCPCS: 71046; 71260; 80053; 83690; 83880; 84484; 85025; 93005; 93010; 99285-25; Q9967

== ENCOUNTER → 2024-12-17 | Outpatient (CLI) | payer MEDICARE, OTHER ==
[~2024-12-17] MED LIST changes: +Cefpodoxime Pr100 MG PO; +FUROSEMIDE40 MG PO
[2024-12-17 15:52] LABS: BASOPHILS ABSOLUTE AUTO 0.07 K/mm3 (0.00-0.23); BASOPHILS PERCENT AUTO 1 % (0-2); EOSINOPHILS ABSOLUTE AUTO 0.16 K/mm3 (0.00-0.68); EOSINOPHILS PERCENT AUTO 1 % (0-6); Hematocrit 26.9 % (33.0-51.0); Hemoglobin 8.6 g/dL (11.5-16.0); IMMATURE GRAN ABSOLUTE AUTO 0.26 K/mm3 (0.00-0.10); IMMATURE GRAN PERCENT AUTO 2 % (0-1); LYMPHOCYTES ABSOLUTE AUTO 0.73 K/mm3 (0.84-5.20); LYMPHOCYTES PERCENT AUTO 5 % (21-46); MONOCYTES ABSOLUTE AUTO 1.07 K/mm3 (0.16-1.47); MONOCYTES PERCENT AUTO 7 % (4-13); Mean Corpuscular HGB 28.4 pg (26.0-34.0); Mean Corpuscular Volume 89 fL (80-100); Mean Platelet Volume 10.6 fL (9.1-12.4); NEUTROPHILS ABSOLUTE AUTO 12.48 K/mm3 (1.96-9.15); NEUTROPHILS PERCENT AUTO 85 % (41-73); Platelet Count 332 K/mm3 (150-400); RDW Coefficient Variation 16.1 % (11.7-14.2); RDW Standard Deviation 52.7 fL (35.1-46.3); Red Blood Cell Count 3.03 M/mm3 (3.80-5.20); White Blood Cell Count 14.77 K/mm3 (4.00-11.30)
[2024-12-17 16:05] LABS: Albumin, Blood 3.5 g/dL (3.4-5.0); Albumin/Globulin Ratio 0.9 (0.8-1.8); Bilirubin, Total 0.6 mg/dL (0.1-1.0); Bun/Creatinine Ratio 29.6 (12.0-20.0); Calcium, Blood 8.9 mg/dL (8.5-10.1); Creatinine, Blood 3.48 mg/dL (0.40-1.00); Globulin, Blood 3.9 g/dL (2.2-4.0); Potassium, Blood 4.8 mmol/L (3.5-5.5); Total Protein, Blood 7.4 g/dL (6.4-8.2)
== END ==
LOC: LAB SHORT 15:47 → LAB 15:47
PROVIDERS: Physician Assistant Medical
DX: R06.09 Other forms of dyspnea (principal)
CPT/HCPCS: 80053; 83880; 85025

== ENCOUNTER 2025-03-22 12:10 | Emergency (ER) | payer MEDICARE, OTHER ==
[~2025-03-22] VITALS: Ht 157.5 cm; Wt 90.7 kg
[2025-03-22] MEDS ORDERED: MIDO5 (12:34)
[2025-03-22] MEDS ORDERED: NS 1,000 ML IV SCH (12:35)
[2025-03-22] MEDS ORDERED: FURO40 PO (12:39)
[2025-03-22] MEDS ORDERED: HYDR100 PO (12:40)
[2025-03-22 12:54] LABS: BASOPHILS ABSOLUTE AUTO 0.09 K/mm3 (0.00-0.23); BASOPHILS PERCENT AUTO 0 % (0-2); EOSINOPHILS ABSOLUTE AUTO 0.03 K/mm3 (0.00-0.68); EOSINOPHILS PERCENT AUTO 0 % (0-6); Hematocrit 39.7 % (33.0-51.0); Hemoglobin 13.4 g/dL (11.5-16.0); IMMATURE GRAN ABSOLUTE AUTO 0.46 K/mm3 (0.00-0.10); IMMATURE GRAN PERCENT AUTO 2 % (0-1); LYMPHOCYTES ABSOLUTE AUTO 1.02 K/mm3 (0.84-5.20); LYMPHOCYTES PERCENT AUTO 5 % (21-46); MONOCYTES ABSOLUTE AUTO 1.70 K/mm3 (0.16-1.47); MONOCYTES PERCENT AUTO 8 % (4-13); Mean Corpuscular HGB Conc 33.8 g/dL (31.5-36.5); Mean Corpuscular Volume 83 fL (80-100); NEUTROPHILS ABSOLUTE AUTO 19.35 K/mm3 (1.96-9.15); NEUTROPHILS PERCENT AUTO 86 % (41-73); NRBC ABSOLUTE 0.00 K/mm3 (0.00-0.02); NRBC Auto 0.0 /100 WBC (0.0-0.2); Platelet Count 633 K/mm3 (150-400); RDW Coefficient Variation 13.2 % (11.7-14.2); RDW Standard Deviation 39.9 fL (35.1-46.3)
[2025-03-22 13:22] LABS: Alanine Aminotransfer (ALT/SGP 18.0 U/L (12-78); Albumin, Blood 3.8 g/dL (3.4-5.0); Albumin/Globulin Ratio 0.9 (0.8-1.8); Anion Gap 14.0 mmol/L (3-11); Aspartate Aminotrans (AST/SGOT 15.0 U/L (12-37); Bilirubin, Total 0.6 mg/dL (0.1-1.0); Blood Urea Nitrogen 66.0 mg/dL (8-24); CO2, Blood 27.0 mmol/L (21-32); Calcium, Blood 9.6 mg/dL (8.5-10.1); Chloride, Blood 83.0 mmol/L (98-108); Creatinine, Blood 2.74 mg/dL (0.40-1.00); Globulin, Blood 4.2 g/dL (2.2-4.0); Glucose, Blood 474.0 mg/dL (70-99); Potassium, Blood 3.4 mmol/L (3.5-5.5); Sodium, Blood 121.0 mmol/L (136-145); Total Protein, Blood 8.0 g/dL (6.4-8.2)
[2025-03-22 13:46] LABS: pH Blood Venous 7.32 (7.34-7.37)
[2025-03-22 14:26] LABS: Source, Urine Clean Catch
[2025-03-22 14:34] LABS: Bilirubin, Urine Neg (Neg); Color, Urine Yellow (P-Yellow); Glucose Qualitative, Urine 4+ (Neg); Protein, Urine 4+ (Neg); Urobilinogen, Urine NORM (Normal)
[2025-03-22] MEDS ORDERED: Insulin Regular 100 Unit/ML 1ML Dose IV ONE (14:35)
[2025-03-22 14:42] LABS: Ketones, Urine 1+ (Neg); Leukocyte Esterase, Urine 2+ (Neg); Specific Gravity, Urine 1.015 (1.003-1.022)
[2025-03-22] MEDS ORDERED: DiphenhydrAMINE HCl 50 MG/ML 1ML Vial IV ONE (15:00)
[2025-03-22] MEDS ORDERED: Metoclopramide HCl 5MG / ML 2ML Vial IV ONE (15:00)
[2025-03-22] MEDS ORDERED: ONDA4 PO (17:40)
[2025-03-22 18:34] VITALS: BP 125/60
== END 2025-03-22 18:45 | disposition home or self-care (01) ==
LOC: ER 12:10
PROVIDERS: Emergency Medicine
DX: E11.43 Type 2 diabetes mellitus with diabetic autonomic (poly)neuropathy (principal); I13.2 Hypertensive heart and chronic kidney disease with heart failure and with stage 5 chronic kidney disease, or end stage renal disease; E11.22 Type 2 diabetes mellitus with diabetic chronic kidney disease; E11.65 Type 2 diabetes mellitus with hyperglycemia; N18.6 End stage renal disease; E78.5 Hyperlipidemia, unspecified; J44.9 Chronic obstructive pulmonary disease, unspecified; K21.9 Gastro-esophageal reflux disease without esophagitis; Z79.899 Other long term (current) drug therapy; Z79.82 Long term (current) use of aspirin; Z87.891 Personal history of nicotine dependence
CPT/HCPCS: 71045; 80053; 81001; 82010; 82803; 82947; 85025; 87086; 93005; 93010; 96361; 96374; 96375; 99284-25; A9270; J1200; J1815; J2765; J7030

== ENCOUNTER 2025-05-25 04:29 | Inpatient (IN) | payer MEDICARE, OTHER ==
[~2025-05-25] VITALS: Ht 162.6 cm; Wt 78.0 kg
[~2025-05-25 04:29] MED LIST changes: -AMLO5 PO; +MIDO5 PO; +ONDA4 PO
[2025-05-25 04:47] LABS: pH Blood Venous 7.49 (7.34-7.37)
[2025-05-25 04:51] LABS: BASOPHILS ABSOLUTE AUTO 0.08 K/mm3 (0.00-0.23); BASOPHILS PERCENT AUTO 1 % (0-2); EOSINOPHILS ABSOLUTE AUTO 0.26 K/mm3 (0.00-0.68); EOSINOPHILS PERCENT AUTO 2 % (0-6); Hematocrit 35.7 % (33.0-51.0); Hemoglobin 11.6 g/dL (11.5-16.0); IMMATURE GRAN ABSOLUTE AUTO 0.15 K/mm3 (0.00-0.10); IMMATURE GRAN PERCENT AUTO 1 % (0-1); LYMPHOCYTES ABSOLUTE AUTO 1.28 K/mm3 (0.84-5.20); LYMPHOCYTES PERCENT AUTO 8 % (21-46); MONOCYTES ABSOLUTE AUTO 1.23 K/mm3 (0.16-1.47); MONOCYTES PERCENT AUTO 8 % (4-13); Mean Corpuscular HGB Conc 32.5 g/dL (31.5-36.5); Mean Corpuscular Volume 87 fL (80-100); NEUTROPHILS ABSOLUTE AUTO 13.20 K/mm3 (1.96-9.15); NEUTROPHILS PERCENT AUTO 82 % (41-73); NRBC ABSOLUTE 0.00 K/mm3 (0.00-0.02); NRBC Auto 0.0 /100 WBC (0.0-0.2); Platelet Count 382 K/mm3 (150-400); RDW Coefficient Variation 14.7 % (11.7-14.2); RDW Standard Deviation 44.5 fL (35.1-46.3)
[2025-05-25 04:56] LABS: Source, Urine Clean Catch
[2025-05-25 05:01] LABS: Bilirubin, Urine Neg (Neg); Glucose Qualitative, Urine 4+ (Neg); Ketones, Urine Neg (Neg); Leukocyte Esterase, Urine Neg (Neg); Protein, Urine 3+ (Neg); Specific Gravity, Urine 1.010 (1.003-1.022); Urobilinogen, Urine NORM (Normal)
[2025-05-25 05:07] LABS: Color, Urine Yellow (P-Yellow)
[2025-05-25 05:20] LABS: Alanine Aminotransfer (ALT/SGP 18.0 U/L (12-78); Albumin, Blood 3.6 g/dL (3.4-5.0); Albumin/Globulin Ratio 0.9 (0.8-1.8); Anion Gap 13.0 mmol/L (3-11); Aspartate Aminotrans (AST/SGOT 9.0 U/L (12-37); Bilirubin, Total 1.0 mg/dL (0.1-1.0); Blood Urea Nitrogen 65.0 mg/dL (8-24); CO2, Blood 20.0 mmol/L (21-32); Calcium, Blood 9.6 mg/dL (8.5-10.1); Chloride, Blood 98.0 mmol/L (98-108); Creatinine, Blood 3.16 mg/dL (0.40-1.00); Globulin, Blood 3.8 g/dL (2.2-4.0); Glucose, Blood 488.0 mg/dL (70-99); Magnesium, Blood 2.1 mg/dL (1.6-2.4); Potassium, Blood 4.3 mmol/L (3.5-5.5); Sodium, Blood 127.0 mmol/L (136-145); Total Protein, Blood 7.4 g/dL (6.4-8.2)
[2025-05-25 05:32] LABS: Red Blood Cells, Urine Not Seen /hpf (0-2); White Blood Cells, Urine Not Seen /hpf (0-5)
[2025-05-25 07:11] LABS: Osmolality, Serum 323.0 mos/KG (275-300)
[2025-05-25] MEDS ORDERED: NS 1,000 ML IV SCH (07:35)
[2025-05-25] MEDS ORDERED: FLU VACC TS2025(65UP)/MF59C/PF 45 MCG/0.5 ML SYRINGE IM SCH (07:35)
[2025-05-25] MEDS ORDERED: Insulin Regular 100 UNIT/ML 10ML Vial SC SCH ×2 (08:00→16:00)
[2025-05-25] MEDS ORDERED: NS 1,000 ML IV ONE (08:17)
--- NOTE | 2025-05-25 08:50 | NUR ---
CONSULTATION RECIEVED, REVIEWED AND PROCESSED.
[2025-05-25] MEDS ORDERED: Heparin Sodium,Porcine 5,000 UNIT/0.5 ML SDV SC SCH (09:00)
[2025-05-25 09:36] VITALS: BP 134/115
--- NOTE | 2025-05-25 09:38 | NUR ---
ARRIVAL NOTE: PATIENT ARRIVES TO UNIT VIA GURNEY AND WAS TRANSFFERED TO OUR BED. PATIENT IS ALERT AND ORIENTED X2, TO SELF & PLACE. PATIENT VITAL SIGNS STABLE AND AWARE SHE IS IN THE HOSPITAL BUT NOT SURE WHAT FOR. PATIENT DENID ANY CHEST PAIN/PRESSURE. NO NAUSEA/VOMITTING. ON TELE SHOWING SINUS RTYHM PVC'S 90'S. SATTING >92% ON ROOM AIR. PATIENT HAS CALL LIGHT WITHIN REACH, BED IN LOWEST LOCKED POSITON & STATING NOTHING ELSE IS NEEDED AT THIS TIME.
[2025-05-25] MEDS ORDERED: Miconazole Nitrate 2% 85 GM PWD TOP SCH (10:00)
[2025-05-25 11:08] VITALS: BP 141/81
[2025-05-25] MEDS ORDERED: Darbepoetin (Pharmacy Consult) SC PRN (13:20)
--- NOTE | 2025-05-25 13:20 | NUR ---
CONSULT CALLED: THIS RN CALLED IN CONSULT TO BOB. GAVE VERBAL ORDERS FOR ARNESP, PHARMACY WAS CALLED AND A CONSULT WAS PLACED FOR THEM TO MANAGE. MD ROJAS GAVE VERBAL ORDERS FOR MAG,RENAL PANEL,H&H TO BE DRAWN TOMORROW MORNING WITH LABERS. BLADDER SCAN ORDER WAS PLACED TO CALL HIM IF OVER 200CC'S. RENAL ULTRASOUND WAS ALSO PLACED PER VERAL ORDER. BOB WOULD LIKE TO BE CALLED ONCE THIS AFTERNOONS LABS RESULT.
[2025-05-25 13:33] LABS: Anion Gap 15.0 mmol/L (3-11); Blood Urea Nitrogen 54.0 mg/dL (8-24); CO2, Blood 21.0 mmol/L (21-32); Calcium, Blood 9.4 mg/dL (8.5-10.1); Chloride, Blood 103.0 mmol/L (98-108); Creatinine, Blood 2.94 mg/dL (0.40-1.00); Glucose, Blood 284.0 mg/dL (70-99); Potassium, Blood 3.7 mmol/L (3.5-5.5); Sodium, Blood 135.0 mmol/L (136-145)
--- NOTE | 2025-05-25 13:43 | NUR ---
MD CONTACTED: THIS RN CALLED BOB REGARDING LAB RESULTS COMPLETED.GAVE VERBAL ORDER TO DECREASE NS TO 75ML/HR.
--- NOTE | 2025-05-25 15:37 | NUR ---
CARE NOTE THIS RN ATTEMPTED TO PERFORM BEDSIDE SWALLOW EVALUATION WITH PT BUT PT WAS UNABLE TO FOLLOW COMMANDS. SHE IS ALERT AND RESPONDS TO HER NAME. SHE APPEARED TO BE SHIVERING, TEMPERATURE CHECKED AND WAS STABLE AT 97.2. WARM BLANKET PROVIDED. ANN PHAN MADE AWARE OF INABILITY TO PARTICIPATE IN BEDSIDE SWALLOW EVALUATION.
[2025-05-25] MEDS ORDERED: Albuterol HFA200 ACT/6.7 GM INH INH PRN (16:20)
[2025-05-25 17:18] VITALS: BP 167/81
--- NOTE | 2025-05-25 17:36 | NUR ---
SHIFT SUMMARY: PATIENT IS ALERT AND ORIETNED X3-4, NOT ABLE TO GIVE THE EXACT DAY BUT DOES KNOW THE YEAR & MONTH. SATTIING >92% ON ROOM AIR, WAS PLACED ON 1 LITER VIA NASAL CANNULA WHEN SHE WAS SLEEPING. PATIENT AND NESTORER REPORTED SHE USES CPAP, ORDER WAS PLACED AND RT IS SETTING IT UP. HOME MEDCIATIONS WERE STARTED. PATIENT IS EATING AND A CONSISTENT CARB DIET WAS PLACED. PATIENT HAD A BOWEL MOVEMENT AND POLLOCK IS STILL IN PLACE. DRAINING GOOD OUTPUT AND HANGING BELOW BLADDER. PATIENTS BLOOD SUGARS HAVE IMPROVED & IS NOW Q4 SUGAR CHECK & Q4 INSUILN SCHEDULE. PATIENT IS TO BECOME NPO AT MIDNIGHT TO HAVE A RENAL DUPLEX DONE IN THE AM. PATIENT HAS CALL LIGHT WITHIN REACH, BED IN LOWEST LOCKED POSITION & STATING NOTHING ELSE IS NEEDED AT THIS TIME.
[2025-05-25 18:25] LABS: Anion Gap 12.0 mmol/L (3-11); Blood Urea Nitrogen 52.0 mg/dL (8-24); CO2, Blood 23.0 mmol/L (21-32); Calcium, Blood 9.2 mg/dL (8.5-10.1); Chloride, Blood 104.0 mmol/L (98-108); Creatinine, Blood 2.76 mg/dL (0.40-1.00); Glucose, Blood 200.0 mg/dL (70-99); Potassium, Blood 3.9 mmol/L (3.5-5.5); Sodium, Blood 135.0 mmol/L (136-145)
[2025-05-25 19:57] VITALS: BP 129/57
[2025-05-25] MEDS ORDERED: Folic Acid 1 MG TAB PO SCH (21:00)
[2025-05-26] VITALS (7 sets, daily range): BP systolic 113–171; BP diastolic 54–67
[2025-05-26 04:31] LABS: BASOPHILS ABSOLUTE AUTO 0.04 K/mm3 (0.00-0.23); BASOPHILS PERCENT AUTO 0 % (0-2); EOSINOPHILS ABSOLUTE AUTO 0.28 K/mm3 (0.00-0.68); EOSINOPHILS PERCENT AUTO 3 % (0-6); Hematocrit 32.7 % (33.0-51.0); Hemoglobin 10.5 g/dL (11.5-16.0); IMMATURE GRAN ABSOLUTE AUTO 0.08 K/mm3 (0.00-0.10); IMMATURE GRAN PERCENT AUTO 1 % (0-1); LYMPHOCYTES ABSOLUTE AUTO 1.46 K/mm3 (0.84-5.20); LYMPHOCYTES PERCENT AUTO 14 % (21-46); MONOCYTES ABSOLUTE AUTO 0.96 K/mm3 (0.16-1.47); MONOCYTES PERCENT AUTO 9 % (4-13); Mean Corpuscular HGB Conc 32.1 g/dL (31.5-36.5); Mean Corpuscular Volume 90 fL (80-100); NEUTROPHILS ABSOLUTE AUTO 7.49 K/mm3 (1.96-9.15); NEUTROPHILS PERCENT AUTO 73 % (41-73); NRBC ABSOLUTE 0.00 K/mm3 (0.00-0.02); NRBC Auto 0.0 /100 WBC (0.0-0.2); Platelet Count 303 K/mm3 (150-400); RDW Coefficient Variation 14.9 % (11.7-14.2); RDW Standard Deviation 47.2 fL (35.1-46.3)
[2025-05-26 04:48] LABS: Albumin, Blood 3.0 g/dL (3.4-5.0); Anion Gap 12 mmol/L (3-11); Blood Urea Nitrogen 56 mg/dL (8-24); CO2, Blood 20 mmol/L (21-32); Calcium, Blood 8.6 mg/dL (8.5-10.1); Chloride, Blood 106 mmol/L (98-108); Creatinine, Blood 2.70 mg/dL (0.40-1.00); Glucose, Blood 275 mg/dL (70-99); Magnesium, Blood 2.0 mg/dL (1.6-2.4); Phosphorus, Blood 3.8 mg/dL (2.5-4.9); Potassium, Blood 3.9 mmol/L (3.5-5.5); Sodium, Blood 134 mmol/L (136-145)
--- NOTE | 2025-05-26 05:28 | NUR ---
SHIFT SUMMARY / ASSUMPTION OF CARE ASSUMED CARE OF PT AT APPROXIMATELY 1900. PT AOX2-3. EASY TO REORIENT BUT FORGETFUL. PT TOO DISORIENTED TO KEEP CPAP ON WHILE SLEEPING. PT DID BETTER ON 2L VIA NC WHILE SLEEPING. SPO2 MAINTAINED >92% WHILE SLEEPING. PT PLEASANT AND COOPERATIVE WITH CARE. NS INFUSING AT 75ML/HR. NO SIGNS OF INFILTRATION AT IV INSERTION SITE. NO C/O PAIN. NO C/O CHEST PAIN OR PRESSURE. NO C/O SOB. PT RESTING COMFORTABLY IN BED. CALL LIGHT WITHIN REACH. PT NEEDS ASSISTANCE TO MAKE NEEDS KNOWN. BED IN LOWEST AND LOCKED POSITION. BED ALARM ON.
[2025-05-26] MEDS ORDERED: NS 1,000 ML IV SCH (06:25)
[2025-05-26] MEDS ORDERED: Cholecalciferol 1000 Unit Tablet (=25MCG) PO SCH (09:00)
[2025-05-26] MEDS ORDERED: FAMO20 PO (09:14)
[2025-05-26] MEDS ORDERED: HYDR100 PO (09:16)
[2025-05-26] MEDS ORDERED: INSULANI SC (09:22)
[2025-05-26] MEDS ORDERED: HUMALOG KW100 UNIT/1 SC (09:22)
[2025-05-26] MEDS ORDERED: VITAMIN D3 PO (09:28)
[2025-05-26] MEDS ORDERED: IRON18 M1 PO (09:28)
--- NOTE | 2025-05-26 10:26 | NUR ---
AM NOTE: PATIENT ALERT AND ORIENTED X3. ABLE TO TELL ME WHO SHE IS, WHERE SHE IS AND WHAT YEAR IT IS. UNABLE TO TELL ME DETAILS OF WHY SHE IS HERE. PERRLA. MOVING ALL EXTREMITIES AND HELPING TURN IN BED. STATES SHE USES WHEELCHAIR AT [facility] BUT DOES WALK SHORT DISTANCES IN HER HOME. LIVES WITH DAUGHTER JAYY. JAYY CALLED THIS MORNING AND UPDATE PROVIDED. HOME MED LIST COMPLETED WITH DAUGHTER OVER THE PHONE. ON ROOM AIR SATING 92-95%. DENIES SOB. COMPLAINS OF OCCASIONAL DRY COUGH. EVEN AND UNLABORED RESPIRATIONS. LUNG SOUNDS CLEAR AND DIM IN BASES. TELE SHOWING SR WITH PVC'S. HR 60-80'S. DENIES CHEST PAIN/PRESSURE/PALPITATIONS. NO EDEMA NOTED. IV FLUIDS INFUSING PER EMAR. BOWEL TONES PRESENT. TOLERATING PO DIET WITHOUT ISSUES. CBG Q4 WITH INSULIN ORDERS. POLLOCK CATH IN PLACE DRAINING CLEAR/YELLOW URINE. ATTENDS IN PLACE. PANNUS SKIN FOLDS RED. SEE CHART PHOTO. AREA CLEANSED AND POWDER APPLIED. SKIN PALE WITH SCATTERED BRUISING. PATIENT CALLED DAUGHTER JAYY THIS MORNING FROM ROOM PHONE AND DAUGHTER TO BRING IN REQUESTED PERSONAL ITEMS. CALL LIGHT IN REACH. SITTING UP IN BED AT THIS TIME WATCHING TV AND DRINKING COFFEE.
[2025-05-26] MEDS ORDERED: Insulin Glargine 100 Unit/ML 3 ML SYR SC SCH (11:00)
--- NOTE | 2025-05-26 11:21 | NUR ---
DR. GARZA TO BEDSIDE. THIS RN AT BEDSIDE FOR MD ROUNDS. ORDERS FOR PT/OT, MEDICAL STATUS NO TELE, DISCONTINUE CURRENT PO NORVASC, LANTUS 30 UNITS SC DAILY STARTING NOW, DISCONTINUE CURRENT REGULAR INSULIN, NEW ORDER FOR REGULAR INSULIN LOW SLIDING SCALE SC ACHS STARTING NOW, REGLAN 10MG PO TIDM STARTING NOW AND TO DISCONTINUE POLLOCK CATH. ORDERS IN PLACE.
[2025-05-26] MEDS ORDERED: Insulin Regular 100 UNIT/ML 10ML Vial SC SCH ×3 (11:30→16:30)
--- NOTE | 2025-05-26 11:47 | NUR ---
PHYSICAL THERAPY IN ROOM AT THIS TIME.
[2025-05-26] MEDS ORDERED: Insulin Regular 100 UNIT/ML 10ML Vial SC ONE (11:55)
--- NOTE | 2025-05-26 12:07 | NUR ---
AFTERNOON BLOOD SUGAR 344. PATIENT CURRENTLY ON LOW SLIDING SCALE. DR. GARZA CALLED AND PATIENT INCREASED TO MEDIUM SLIDING SCALE.
--- NOTE | 2025-05-26 14:10 | NUR ---
OCCUPATIONAL THERAPY IN ROOM AT THIS TIME.
--- NOTE | 2025-05-26 17:05 | NUR ---
TRASNFER TO 339 VIA PERSONAL WHEELCHAIR AND ALL BELONGINGS. NO ACUTE CHANGES. PATIENT REMAINS ALERT AND ORIENTED X4. ON ROOM AIR. MEDICAL STATUS NO TELE. PHYSICAL AND OCCUPATIONAL THERAPY THIS AFTERNOON. POLLOCK CATH REMOVED. BED BATH COMPLETED. REPORTED OFF TO DEMETRIO PHAN.
--- NOTE | 2025-05-26 18:03 | NUR ---
ASSUMPTION OF CARE: MS. MONTGOMERY ARRIVED TO MEDICAL FLOOR ROOM 339 AT 1655. THIS GENTLE LADY WAS ORIENTED TO CALL SYSTEM, BELONGINGS PLACED TO THE SIDE. C-PAP IN ROOM CURRENTLY. RA AT THIS TIME. LUNGS CLEAR BL, S1 S2 HEARD ON ASCULATION. BLADDER SCAN ORDER IN PLACE FOR URINARY RENTENTION. CALL DR. BOB araiza VALUES OVER 200CC. PATIENT MEDICATED WITH INSULIN IN PCU PRIOR TO ARRIVAL. SEE EMAR FOR DETAILS. PLAN TO GO HOME HH, DAUGHTER HELPS WITH CARE. WILL REPORT TO ONCOMING NURSE.
[2025-05-27 03:58] VITALS: BP 138/60
--- NOTE | 2025-05-27 05:02 | NUR ---
SHIFT SUMMARY; PT A/OX4, SBA ASSIST TO THE BATHROOM AMBULATING WITH WHEELCHAIR, AND CALLS APPROPRIATELY. PT MEDICATED PER EMAR. PT REQUESTING MEDICATION TO HELP HER SLEEP. MEDICATION FOR RLS GIVEN AND PT OBSERVED SLEEPING THROUGHOUT THE SHIFT. PT TOLERATING CPAP WELL. PT HAS GOOD AMOUNT OF URINE OUTPUT THIS SHIFT. BED IN LOWEST POSITION AND CALL LIGHT WITHIN REACH.
[2025-05-27 05:27] LABS: Hematocrit 34.0 % (33.0-51.0); Hemoglobin 10.8 g/dL (11.5-16.0)
[2025-05-27 07:06] LABS: Albumin, Blood 3.1 g/dL (3.4-5.0); Anion Gap 12 mmol/L (3-11); Blood Urea Nitrogen 55 mg/dL (8-24); CO2, Blood 20 mmol/L (21-32); Calcium, Blood 8.9 mg/dL (8.5-10.1); Chloride, Blood 109 mmol/L (98-108); Creatinine, Blood 2.72 mg/dL (0.40-1.00); Glucose, Blood 253 mg/dL (70-99); Magnesium, Blood 2.0 mg/dL (1.6-2.4); Phosphorus, Blood 4.0 mg/dL (2.5-4.9); Potassium, Blood 3.9 mmol/L (3.5-5.5); Sodium, Blood 137 mmol/L (136-145)
[2025-05-27 07:49] VITALS: BP 124/64
[2025-05-27] MEDS ORDERED: AMLO5 PO (12:31)
[2025-05-27] MEDS ORDERED: OMEP20ER PO (12:36)
[2025-05-27] MEDS ORDERED: MIDO5 PO (13:17)
--- NOTE | 2025-05-27 14:27 | NUR ---
DISCHARGE PT AOX4, COOPERATIVE, ABLE TO MAKE NEEDS KNOWN. PT ON ROOM AIR, USING CPAP/BIPAP NOC WITH CONT PULSE OX. TOLERATING MEDICATIONS. ON ISO FOR ESBL IN URINE. PT TRANSFERS TO IND TO USE RESTROOM APPROPRIATELY. THIS RN WITNESSED [facility] PT OUT OF ROOM IN . THIS RN WENT OVER DC PAPERWORK WITH PT. ALL PERSONAL BELONGINGS WENT WITH PT.
== END 2025-05-27 14:20 | disposition home or self-care (01) | DRG 682 ==
LOC: ER 04:29 → PCU 07:28 → MEDS 05-26 16:50 → ENPENDDIS 05-27 12:26 → MEDS 05-27 14:20
PROVIDERS: Internal Medicine Nephrology; Student in an Organized Health Care Education/Training Program; ADMIT Family Medicine
DX: N17.9 Acute kidney failure, unspecified (principal); G93.41 Metabolic encephalopathy; E87.1 Hypo-osmolality and hyponatremia; I13.2 Hypertensive heart and chronic kidney disease with heart failure and with stage 5 chronic kidney disease, or end stage renal disease; E87.20 Acidosis, unspecified; N18.6 End stage renal disease; G25.81 Restless legs syndrome; E11.43 Type 2 diabetes mellitus with diabetic autonomic (poly)neuropathy; K31.84 Gastroparesis; E11.22 Type 2 diabetes mellitus with diabetic chronic kidney disease; Z99.2 Dependence on renal dialysis; J44.89 Other specified chronic obstructive pulmonary disease; E11.65 Type 2 diabetes mellitus with hyperglycemia; Z96.641 Presence of right artificial hip joint; Z96.632 Presence of left artificial wrist joint; Z96.651 Presence of right artificial knee joint; E78.5 Hyperlipidemia, unspecified; I50.9 Heart failure, unspecified; E88.09 Other disorders of plasma-protein metabolism, not elsewhere classified; D63.1 Anemia in chronic kidney disease; N25.81 Secondary hyperparathyroidism of renal origin; D72.829 Elevated white blood cell count, unspecified; K21.9 Gastro-esophageal reflux disease without esophagitis; I25.10 Atherosclerotic heart disease of native coronary artery without angina pectoris; Z79.899 Other long term (current) drug therapy; Z91.048 Other nonmedicinal substance allergy status; Z91.018 Allergy to other foods; Z79.82 Long term (current) use of aspirin; Z79.85 Long-term (current) use of injectable non-insulin antidiabetic drugs; I25.2 Old myocardial infarction; Z79.51 Long term (current) use of inhaled steroids; Z95.1 Presence of aortocoronary bypass graft; Z87.81 Personal history of (healed) traumatic fracture; Z87.891 Personal history of nicotine dependence; Z79.02 Long term (current) use of antithrombotics/antiplatelets; Z88.5 Allergy status to narcotic agent
CPT/HCPCS: 36415; 51701; 51702; 70450; 71045; 76770; 80048; 80053; 80069; 81001; 82010; 82803; 82947; 83036; 83690; 83735; 83930; 85014; 85018; 85025; 93005; 93010; 93975; 94660; 94762; 96360; 97116; 97162; 97165; 97530; 97535; 99285-25; A9270; J1644; J1815; J7030; J7120